=== PATIENT | male | born 1940 | race Caucasian/White ===

== ENCOUNTER 2016-12-22 23:15 | Inpatient (IN) | payer OTHER ==
--- NOTE | ~2016-12-22 | OP ---
Record Of Operation [facility] [address] [place]. [address] NAME: GIULIANA CASTRO : 41 STATUS : ADM IN [facility]#: [id number] AGE: 76 ADM/REG DATE : 12/22/16 MR#: [id number] REPORT SERV DATE: 01/04/17 DICTATED BY: ZANDER HELLERCRESENCIO PICKENS DATE: 01/04/17 REPORT STATUS : Draft TRANSCRIBED BY: MODMaria De Jesus DATE: 01/04/17 DATE OF PROCEDURE: 01/04/2017 PREOPERATIVE DIAGNOSIS: Severe necrotic pyelonephritis on the left with a large left-sided pleural effusion. POSTOPERATIVE DIAGNOSIS: Severe necrotic pyelonephritis on the left with a large left-sided pleural effusion. PROCEDURE: Diagnostic and therapeutic left-sided thoracentesis. INDICATIONS: History of necrotic pyelonephritis on the left with a large left-sided pleural effusion with persistent fevers. CONTRAINDICATIONS: The patient is on ventilator, is a relative contraindication. CONSENT: The risks, benefits, alternative evaluations, and treatments were discussed with the patient's who is acting as a surrogate decision maker. Possible complications reviewed to include air leak around the lung, bleeding, infection, low oxygen level, and even potentially . The agreed to procedure with consent signed and witnessed on front of the chart. PREOPERATIVE LABS: The patient's INR was 1.2. Platelet count was 133,000. CUSTOMER SUPPORT PROFESSIONAL: Cresencio Herring M.D. METHOD: The patient was brought to the edge of the bed and placed in the semisitting position. He was rolled slightly right anterior oblique with the left axillary space exposed. Using the SonoSite Unit, a large fluid collection was noted in approximately the ninth intercostal space in the posterior axillary line. A good intercostal space was found. The area was prepped with chlorhexidine and sterilely draped. Anesthesia was provided to the skin and deeper tissues with approximately 3 mL of 1% lidocaine solution without epinephrine. As the anesthesia needle was advanced to the deeper tissues, it was kept perpendicular to the patient's chest wall. It was advanced to the rib, then over the rib into the pleural space. Slightly sanguineous fluid was obtained. A small skin incision was made and the thoracentesis catheter was advanced in similar manner to the rib, then over the rib into the pleural space. Slightly serosanguineous fluid was obtained. A total of 1600 mL of fluid was removed. Fluid was stopped when the patient developed increasing coughing, and there was more resistance to removal of the fluid. The fluid was sent for studies. Estimated blood loss was less than 1 mL. There was minimal residual fluid at the conclusion of the procedure with re-evaluation with the SonoSite unit. Chest x-ray will be obtained. KENROY/JACQUE Record Of [address] [address] NAME: GIULIANA CASTRO : 41 STATUS : ADM IN [facility]#: [id number] AGE: 76 ADM/REG DATE : 12/22/16 MR#: [id number] REPORT SERV DATE: 01/04/17 DICTATED BY: CRESENCIO HERRING IV DATE: 01/04/17 REPORT STATUS : Draft TRANSCRIBED BY: JACQUE DATE: 01/04/17 Cresencio Herring IV, M.D. / [id number] CC: MD Heike Garrido M.D.
--- NOTE | ~2016-12-22 | CN ---
Consultation Report [facility] [address] [place]. [address] NAME: GIULIANA CASTRO : 42 STATUS : ADM IN [facility]#: [id number] AGE: 76 ADM/REG DATE : 12/22/16 MR#: [id number] REPORT SERV DATE: 12/25/16 DICTATED BY: SHANITA PERDOMO DATE: 12/24/16 REPORT STATUS : Draft TRANSCRIBED BY: MODL DATE: 12/24/16 CONSULTATION DATE OF CONSULTATION: 12/23/2016 TREATING PHYSICIAN: Shanita Perdomo MD REASON FOR CONSULTATION: 1. Bilateral renal stones. 2. Acute kidney injury. 3. Urinary tract infection. 4. History of bladder cancer and urinary diversion. HISTORY OF PRESENT ILLNESS: Mr. Castro is a 76-year-old male with an extensive past urologic history. He has a history of bladder cancer status post radical cystoprostatectomy and neobladder formation at [facility]. His neobladder did not go that well. He had his neobladder converted into an ileal conduit some years later. In the interim, he has developed chronic kidney disease with a baseline creatinine of 3.5. He has a known poorly functioning left kidney and known stones in both sides. He was admitted to [facility] several days ago with a chief complaint of nausea, vomiting, chills, fevers, and feeling bad. He was evaluated and found to have concern for an infection with infected stones. Additionally, he was found to have a very large left-sided perinephric hematoma, which occurred in the setting of a supratherapeutic INR of 6. He is anticoagulated for his cardiac disease. Given the complexity of this patient, he was transferred downtown for further management. Given his perinephric hematoma, his obstructing and nonobstructing stones, and infection, I have been asked to consult to help manage with this patient. PAST MEDICAL HISTORY: 1. Atrial fibrillation, chronic systolic heart failure, ischemic cardiomyopathy, coronary artery disease, COPD, bladder cancer status post cystoprostatectomy with neobladder converted to ileal conduit, hyperthyroidism, depression, chronic kidney disease. SURGICAL HISTORY: 1. Radical cystoprostatectomy. 2. Neobladder. 3. Neobladder conversion to ileal conduit. FAMILY HISTORY: Noncontributory. SOCIAL HISTORY: He smokes. He does not drink or use illegal drugs. He is . ALLERGIES: NO KNOWN DRUG ALLERGIES. MEDICATIONS: Reviewed on the chart. Consultation Report [facility] [address] [facility] [place]. [address] NAME: GIULIANA CASTRO : 41 STATUS : ADM IN [facility]#: [id number] AGE: 76 ADM/REG DATE : 12/22/16 MR#: [id number] REPORT SERV DATE: 12/25/16 DICTATED BY: SHANITA PERDOMO DATE: 12/24/16 REPORT STATUS : Draft TRANSCRIBED BY: MODL DATE: 12/24/16 REVIEW OF SYSTEMS: A 12-point review of systems was performed. Pertinent positives are listed in the HPI. PHYSICAL EXAMINATION: VITAL SIGNS: He is afebrile. He is tachycardic. He is in AFib with RVR. He is on a Cardizem drip. Blood pressure is stable. He has normal saturations on 2 L nasal cannula. He is in no acute distress. He appears stated age. HEAD: Normocephalic and atraumatic. LUNGS: Breathing is nonlabored. He is not in respiratory distress. Pulse is atrial fibrillation. ABDOMEN: Markedly distended. There are no bowel sounds. He has no CVA tenderness. : He has normal external genitalia. EXTREMITIES: No cyanosis or edema. NEURO: He is alert and oriented x3. LABORATORY DATA: His white count is 15.2, hemoglobin 12.4, creatinine 3.7, procalcitonin is 50. IMAGIN[address] CT scan of the abdomen and pelvis performed at [place] 2 days ago was personally reviewed, interpreted by myself. He has bilateral staghorn stones. He has a 1.2 cm stone in the distal left ureter as it crosses under the colonic mesentery. He has bilateral hydronephrosis. He has questionable node in the pelvis. 2. KUB performed at [facility], personally reviewed and interpreted by myself. He has distended loops of small bowel consistent with ileus versus partial small bowel obstruction. 3. Repeat CT scan of the abdomen and pelvis performed at [facility] today. He has a large perinephric left hematoma. He has bilateral staghorn stones. He has a 1.2 cm stone in distal left ureter. 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 ASSESSMENT AND PLAN: Mr. Castro is a chronically ill and now critically ill patient with what appears to be emphysematous pyelonephritis likely in the setting of a chronically obstructed infected kidney. I suspect that the perinephric hematoma, which occurred in setting of obstruction and supratherapeutic INR has provided fuel for the bacteria to rapidly multiply. At this time, recommend broadening his antibiotic coverage with vancomycin and Zosyn. I will plan taking him to the operating room urgently for a left retroperitoneal exploration and nephrectomy, and ureteral stone extraction. I discussed in depth with the patient and the family that this is a very morbid operation and the on-table mortality is 50%, We suspect he will need dialysis afterwards. I appreciate the Cardiology input into this consultation. I will plan on getting Nephrology involved postoperatively as needed. Consultation Report [facility] [id number] [facility] [place]. [address] NAME: GIULIANA CASTRO : 42 STATUS : ADM IN [facility]#: [id number] AGE: 76 ADM/REG DATE : 12/22/16 MR#: [id number] REPORT SERV DATE: 12/25/16 DICTATED BY: SHANITA PERDOMO DATE: 12/24/16 REPORT STATUS : Draft TRANSCRIBED BY: JACQUE DATE: 12/24/16 FLAQUITO/JACQUE Shanita Perdomo MD / [id number] CC: MD Heike Garrido M.D.
--- NOTE | ~2016-12-22 | OP ---
Record Of Operation [facility] [address]. [address] NAME: GIULIANA CASTRO : 42 STATUS : ADM IN PAT#: [id number] AGE: 76 ADM/REG DATE : 12/22/16 MR#: [id number] REPORT SERV DATE: 12/25/16 DICTATED BY: SHANITA PERDOMO DATE: 12/24/16 REPORT STATUS : Draft TRANSCRIBED BY: MODL DATE: 12/24/16 DATE OF PROCEDURE: 12/23/2016 TITLE OF OPERATION: 1. Open exploration of retroperitoneum with evacuation and washout of perinephric hematoma. 2. Left open simple nephrectomy. 3. Open left ureteral exploration with stone extraction. PREOPERATIVE DIAGNOSES: 1. Emphysematous pyelonephritis. 2. Renal stones. 3. Ureteral stones. 4. Chronic kidney disease. 5. Concern for sepsis of urinary origin. 6. Perinephric hematoma. POSTOPERATIVE DIAGNOSES: 1. Emphysematous pyelonephritis. 2. Renal stones. 3. Ureteral stones. 4. Chronic kidney disease. 5. Concern for sepsis of urinary origin. 6. Perinephric hematoma. INDICATIONS: Mr. Castro is a 76-year-old male with a perinephric hematoma and an obstructed poorly functioning left kidney. He has chronic kidney disease. He developed emphysematous pyelonephritis of his kidney. He is critically ill. He is being taken to the operating room urgently for nephrectomy. He and his family understand the severity of the situation and his high on-table mortality. The risks and benefits were extensively explained to the patient and his family. ANESTHESIA: General. COMPLICATIONS: None. IMPLANTS: Large flat HO drain. SPECIMENS: Left kidney for pathologic analysis, perinephric infection for culture and sensitivity. NARRATIVE: The patient was brought to the operating room in an urgent fashion. The patient received central venous access and arterial lines by the Anesthesia team. General anesthesia was induced. He was given vancomycin and Zosyn for antibiotics. He was placed in the left flank position, the bed was flexed, he was secured to the bed with pads and tape. He was prepped and draped in sterile fashion. An incision was made between his 12th Record Of Operation [facility] [address] [facility] [place]. [address] NAME: GIULIANA CASTRO : 42 STATUS : ADM IN PAT#: [id number] AGE: 76 ADM/REG DATE : 12/22/16 MR#: [id number] REPORT SERV DATE: 12/25/16 DICTATED BY: SHANITA PERDOMO DATE: 12/24/16 REPORT STATUS : Draft TRANSCRIBED BY: MODMaria De Jesus DATE: 12/24/16 and 11th rib and curved toward the umbilicus. The incision was deepened through the external internal oblique muscle and fascia and the rectus fascia. Peritoneum was entered. The colon was dropped along the white line of Toldt exposing the retroperitoneum. The kidney was massively enlarged and edematous and very firm to palpation and in appearance. The mesentery was carefully peeled off the kidney. At one point, a mesenteric vein was avulsed, there was some bleeding. It was controlled with clips. Eventually, the bowel was retracted off the retroperitoneum to expose the aorta. Next, the splenorenal ligaments were divided off the kidney with the LigaSure device. This was carried cranially. The tail of the pancreas was divided off the kidney sharply with care taken not to injure the pancreas. Eventually, I got underneath the upper pole of the kidney exposing the psoas muscle. Next, I did my dissection laterally and freed the kidney off the lateral sidewall. This immediately evacuated a large burden of infected hematoma. The smell was quite strong consistent with a very bad infection. The infection was evacuated with a suction device and towels. Next, I got under the kidney posteriorly exposing the psoas muscle which was black with infection. Once the bowel had been reflected medially on the anterior bases, identified the gonadal vein, clipped, and divided it. I got underneath the ureter and lifted the kidney off the psoas muscle. The tissue surrounding the hilum was very edematous, inflamed, infected with adenopathy. I identified the artery superior to the vein and stapled it with a 45 mm reticulating automatic stapler. The vein was then likewise stapled. There were several attachments that were clipped and divided. The ureter and gonadal were then stapled and divided. The kidney was then free of all attachments and it was delivered from the wound and sent to pathology. Cultures from the perinephric hematoma were sent for culture and sensitivity. At this point, the wound was inspected and irrigated. There was some bleeding overlying the aorta. This was oversewn with a 4-0 Prolene suture. The bleeding was successfully stopped. There was no ongoing bleeding and the wound was packed. Next, the ureter was identified and it was incised along its medial length to the point where it dove under the colonic mesentery. Very large stones were encountered in the ureter, these were removed, and sent to pathology for analysis. The ureter was then sutured shut with a 3-0 running Vicryl suture. At this point, the wound was copiously irrigated with several liters of sterile saline. There was no ongoing bleeding. A large flat HO drain was placed into the renal fossa. were approximated using a 0 Vicryl suture in a [id number] fashion. The internal oblique fascia was closed with a #1 looped PDS in a running fashion. The external oblique and rectus fascia were then closed with a running #1 PDS looped. The wound was irrigated clear. The skin was approximated with skin teena. A Xeroform gauze and tape dressing were placed. The drain was sutured in place with a 0 silk suture. There were no complications. Estimated blood loss was 500 mL. The patient was transferred in critical condition intubated back to the ICU. FLAQUITO/JACQUE Shanita Perdomo MD / [id number] Record Of Operation [address] [address] NAME: GIULIANA CASTRO : 42 STATUS : ADM IN [facility]#: [id number] AGE: 76 ADM/REG DATE : 12/22/16 MR#: [id number] REPORT SERV DATE: 12/25/16 DICTATED BY: SHANITA PERDOMO DATE: 12/24/16 REPORT STATUS : Draft TRANSCRIBED BY: JACQUE DATE: 12/24/16 CC: MD Heike Coley M.D.
--- NOTE | ~2016-12-22 | IDS ---
Interim Discharge Summary [facility] [address] [place]. [address] NAME: GIULIANA CASTRO : 42 STATUS : ADM IN [facility]#: [id number] AGE: 76 ADM/REG DATE : 12/22/16 MR#: [id number] REPORT SERV DATE: 12/26/16 DICTATED BY: NAYELI RICHMOND DATE: 12/26/16 REPORT STATUS : Draft TRANSCRIBED BY: MODL DATE: 12/26/16 ADMISSION DATE: 12/22/2016 DISCHARGE DATE: HISTORY OF PRESENT ILLNESS: This is a 76-year-old patient who was transferred here at the request of Urology at [facility] for further observation and care for subcapsular hematoma of the left kidney. The patient was admitted to the Hospitalist Service on the 12/20/2016 with chronic kidney injury, atrial fibrillation with RVR, and UTI. He is on chronic Coumadin as an outpatient, and apparently, his INR had increased to 6, it was then corrected. However, further evaluation of the abdomen showed a subcapsular hematoma of the left kidney. The patient continued to have difficulties with CAYLA and was thought probably need dialysis and was transferred to this facility on 12/22/2016. On 12/23/2016, the patient was evaluated and was found to have a very distended abdomen and was complaining of increasing abdominal pain. Dr. Perdomo of Urology here was contacted, and the patient was taken to the CT scanner to see if there was any extension of his subcapsular hematoma or possibly even a perforation. The CT scan of the abdomen showed a rather large amount of air around the left kidney that was concerning for gas-forming organisms since the patient has had no previous intervention that could account for this air being there. Dr. Perdomo then was contacted, and the patient went emergently to the operating room on the evening of 12/23/2016 and underwent a left nephrectomy with placement of drainage tubes. He came back intubated, and was in septic shock requiring multiple pressors. The patient has been cultured since and is growing E coli from his surgical culture, also abundant growth of gram positive cocci were also noted on the surgical culture. The urine culture grew out Klebsiella and Morganella morganii, and there was one blood culture positive for strep viridans. The patient is having issues with severe thrombocytopenia. He does not appear to be in DIC as per DIC panel, and there were no schistocytes seen or platelet clumping seen on peripheral smear. It is thought that perhaps the Zosyn is contributing to the thrombocytopenia, and so given the antibiotic sensitivity profile, we will be discontinuing the Zosyn and continuing Levaquin at 750 mg IV q.48 and continuing the vancomycin as well until the identification and sensitivity of the gram-positive cocci are available on the surgical culture. With regard to his sepsis, the patient has some improvement and is just on Levophed now, however, earlier he had been on epinephrine and vasopressin. Levophed is slowly being weaned. The patient had a Vas-Cath placed in the left internal jugular and is undergoing FINISHED STOCK INSPECTOR and may very well become dialysis dependent since he already has had a history of bladder cancer and has a urostomy that was placed while back at [facility]. He also has hydronephrosis of the right kidney and may very well need a percutaneous drain on that side once his sepsis and hemodynamics improved. So a PermCath may be necessary. The patient came over in atrial fibrillation with RVR. He is currently on an amiodarone drip. He has a known history of ischemic cardiomyopathy with an ejection fraction of 36%. [facility] Cardiology is following him, and he continues on the amiodarone drip. There is some concern about his atrial fibrillation and propensity for possible CVA given that he is not on anticoagulation, we may be able to start subcu heparin at least for DVT prophylaxis, but at this point use of heparin is somewhat concerning since he has a very low platelet count, Interim Discharge Summary [address] [place]. [address] NAME: GIULIANA CASTRO : 42 STATUS : ADM IN [facility]#: [id number] AGE: 76 ADM/REG DATE : 12/22/16 MR#: [id number] REPORT SERV DATE: 12/26/16 DICTATED BY: NAYELI RICHMOND DATE: 12/26/16 REPORT STATUS : Draft TRANSCRIBED BY: JACQUE DATE: 12/26/16 but we will follow the platelet count over the next day or so and he continues to be stable, we can either start a heparin drip or possibly subcu heparin. Nephrology did not wish to start 81 mg of aspirin at this time, but this may be reconsidered once the PermCath is placed. The patient has a history of hyperthyroidism and his methimazole at 5 mg will be continued. Hematuria is resolving. COPD, he is on bronchodilators. We will start a Protonix 40 mg IV q.24 for GI prophylaxis. The patient's code status remains a full code. /MODL Nayeli Richmond M.D. / [id number] CC: MD Heike Garrido M.D.
--- NOTE | ~2016-12-22 | OP ---
Record Of Operation [facility] [address] [place] [address] NAME: GIULIANA CASTRO : 42 STATUS : ADM IN [facility]#: [id number] AGE: 76 ADM/REG DATE : 12/22/16 MR#: [id number] REPORT SERV DATE: 12/26/16 DICTATED BY: AAKASH CRAWFORD DATE: 12/26/16 REPORT STATUS : Draft TRANSCRIBED BY: MODL DATE: 12/26/16 DATE OF PROCEDURE: 12/24/2016 PREOPERATIVE DIAGNOSIS: Acute kidney injury. POSTOPERATIVE DIAGNOSIS: Acute kidney injury. PROCEDURE: Left IJ Vas-Cath. SURGEON: Aakash Crawford M.D. ARCHEOLOGY FACULTY MEMBER: None. ANESTHESIA: IV sedation. INDICATION: The patient is a 76-year-old gentleman, who has acute kidney injury following urologic surgery. He needs a dialysis catheter for dialysis. Risks, benefits, and alternatives were discussed with the family. They wished to proceed. DESCRIPTION OF PROCEDURE: After informed consent was obtained, the patient's left neck and chest were prepped and draped in usual sterile fashion. Ultrasound-guided access was obtained of the left internal jugular vein. The ultrasound image was documented on the chart. I passed a wire centrally. I made a small skin incision and placed a 20-cm Vas-Cath into the left neck. I used x-ray to confirm that the catheter was positioned appropriately with the tip in the right atrium. The catheter was sutured in place. It was packed with saline. A sterile dressing was applied. The patient tolerated the procedure well without any intraprocedural complications noted. RETRIEVAL SPECIALIST/JACQUE Aakash Crawford M.D. / [id number] CC: MD Heike Garrido M.D. Joseph Watlington, M.D.
--- NOTE | ~2016-12-22 | DS ---
Discharge Summary [facility] [address] [place]. [address] NAME: GIULIANA CASTRO : 42 STATUS : ADM IN PAT#: [id number] AGE: 76 ADM/REG DATE : 12/22/16 MR#: [id number] REPORT SERV DATE: 01/10/17 DICTATED BY: NAYELI RICHMOND DATE: 01/10/17 REPORT STATUS : Draft TRANSCRIBED BY: MODMaria De Jesus DATE: 01/10/17 ADMISSION DATE: 12/22/2016 DISCHARGE DATE: Since the patient's admission, there have been two interim summaries done, one on 12/26/2016 by myself and one on 01/02/[address] Ed Oden. So, for details of this patient's hospital course, please see those. So, this summary will cover events from the 01/03/2017 to 01/10/2017. DIAGNOSES: 1. 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 2. Septic shock secondary to Escherichia coli. 3. Acute renal failure. 4. Acute respiratory failure. 5. Thrombocytopenia. 6. Severe ileus. 7. Atrial fibrillation. Continuing on 01/03/2017, the patient was followed by Dr. Wiggins throughout the week. As per Dr. Ed Oden's dictation, the patient was made a DNR on 12/23/2016. The patient was eventually extubated and actually has tolerated being off the ventilator. In reviewing the chart, the patient was taken off CREDIT UNION FIELD EXAMINER on 01/06/2017 with some plan to possibly try conventional hemodialysis on the patient. Throughout the week, there were fluctuations in the patient's blood pressure necessitating restarting pressors. Dobbhoff tube was placed on 01/08/2017. There were some reservations as to whether or not the patient would even be able to tolerate being on hemodialysis. Hemodialysis was tried; however, the patient was not able to tolerate it and then discussion was had as to whether or not to restart CREDIT UNION FIELD EXAMINER. After further discussion with the family, they elected to make the patient comfort measures. The patient himself did not want to go back on to CREDIT UNION FIELD EXAMINER. So, comfort measures were instituted on the evening on 01/10/2017 with discontinuation of all and any pressors, lab work, chest x rays, and the plan is to keep the patient comfortable and avoid any further aggressive treatment. /JACQUE Nayeli Richmond M.D. / [id number] CC: MD Heike Garrido M.D.
--- NOTE | ~2016-12-22 | CN ---
Consultation Report [facility] [address] [place]. [address] NAME: GIULIANA CASTRO : 41 STATUS : ADM IN PAT#: [id number] AGE: 76 ADM/REG DATE : 12/22/16 MR#: [id number] REPORT SERV DATE: 12/29/16 DICTATED BY: WELLINGTON CAMPO DATE: 12/29/16 REPORT STATUS : Draft TRANSCRIBED BY: MODL DATE: 12/29/16 INFECTIOUS DISEASE CONSULT DATE OF CONSULTATION: REASON FOR REFERRAL: Evaluation and treatment of persistent fever. HISTORY OF PRESENT ILLNESS: This patient is a 76-year-old male with history of atrial fibrillation, congestive heart failure, and chronic obstructive pulmonary disease. He was still smoking. He has history of hyperthyroidism and chronic renal insufficiency. He has a past history of bladder cancer and underwent at [place] some years ago, a neobladder and urostomy tube that did not go well per the Urology notes here and was later changed to an ileal conduit. 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 He came into [facility] on December 22 with 24 hours of nausea, vomiting, fevers, chills, and malaise. He had pyuria, grew two gram-negative rods from his urine. Subsequent imaging revealed staghorn calculi, as well as an obstructing stone on the left side. He was started on Rocephin to which the Klebsiella and Morganella in his urine were both sensitive. He also grew a Strep viridans in one of two blood cultures. He continued to be very ill and sick, was transferred here on the , and repeat imaging showed emphysematous pyelonephritis, as well as a persistent perinephric hematoma probably related to an elevated INR prior to coming in. He was taken to Surgery by Urology here, Dr. Perdomo on the for left nephrectomy and evacuation of that hematoma. The culture from that procedure grew three different organisms, Enterococcus faecalis that was very sensitive, E. coli and Proteus vulgaris, both of which were sensitive to Rocephin. In the meantime, he had a striking thrombocytopenia that was thought vancomycin and Zosyn, to which he had been started on the that the Zosyn might be contributing to that, so Zosyn was changed to Levaquin and since then, in fact his thrombocytopenia has improved. He developed acute on chronic renal failure and after arrival here, a hemodialysis catheter was placed and he was begun on CRRT. On Thursday, the , there was difficulty with the access and that was discontinued. He then yesterday started spiking a fever to 101.7. White blood cell count has remained high. cultures repeated yesterday of blood and tracheal aspirate and thus far those have not grown anything. Chest x-ray has not been repeated since the . He is sedated on the ventilator now. The wounds did not appear to be infected. His abdominal exam has been benign. He has developed no rashes. PAST MEDICAL HISTORY: Otherwise unremarkable. MEDICATIONS: As described above. ALLERGIES: HE HAS NO KNOWN ANTIMICROBIAL ALLERGIES. SOCIAL HISTORY: He is , disabled, smoked as previously mentioned. No history of alcohol or substance abuse. Consultation Report [address] [place]. [address] NAME: GIULIANA CASTRO : 42 STATUS : ADM IN [facility]#: [id number] AGE: 76 ADM/REG DATE : 12/22/16 MR#: [id number] REPORT SERV DATE: 12/29/16 DICTATED BY: WELLINGTON CAMPO DATE: 12/29/16 REPORT STATUS : Draft TRANSCRIBED BY: JACQUE DATE: 12/29/16 FAMILY HISTORY: Noncontributory. PHYSICAL EXAMINATION: GENERAL: Ill-appearing elderly male. He is sedated, orotracheally intubated, and unresponsive at present due to the sedation. VITAL SIGNS: His temperature at present 97.9 with a pulse of 112, respirations 24, blood pressure 125/74 on pressors. Weight 88 kg. HEENT: Sclerae clear. Unable to evaluate his mouth. NECK: Without lymphadenopathy. LUNGS: There are crackles heard bilaterally in the bases. HEART: Irregular. ABDOMEN: Soft, positive bowel sounds are heard. No masses palpated. EXTREMITIES: Without clubbing, cyanosis. Cool extremities. No rashes noted. IV site shows no signs of purulence. LABORATORY DATA: His white blood cell count when he came in was 21.7. On antibiotics, that did improve down to 9.8; on the , was back up to 15.4 on the and 9.9 on the . On the , it was 14.7; on the , 18.1; on the 21.8, and today, 21.5 with hematocrit of 28.3, platelets which had gone all the way down to as low as 20s, is back up to 81. Today's differential, 93 segs, 1% bands. BUN and creatinine are 21 and 2.53. His procalcitonin when he came in was 50.8, 54.32 when checked yesterday. Liver function tests previously checked, within normal limits. IMPRESSION: 1. 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 Causes to consider for the persistent fever would include that at least there is still infection at the kidney site, although that was just washed out. A drain was in place so that should be less likely and then isolated organisms were all covered by his antibiotics. 2. Possible pneumonia. He is certainly at risk for it, not had a chest x-ray in several days and finally, a line infection, although it seems rather fast for that. RECOMMENDATIONS: 1. Continue vancomycin. 2. Change Levaquin to meropenem. 3. Blood cultures already done. We will follow up on those. 4. Cultures, line tip. 5. He checked a chest x-ray and follow up on his tracheal aspirate culture. Finally, I will follow the patient with you. I appreciate very much your consulting on this patient. Consultation Report [address] [place]. [address] NAME: GIULIANA CASTRO : 42 STATUS : ADM IN [facility]#: [id number] AGE: 76 ADM/REG DATE : 12/22/16 MR#: [id number] REPORT SERV DATE: 12/29/16 DICTATED BY: WELLINGTON CAMPO DATE: 12/29/16 REPORT STATUS : Draft TRANSCRIBED BY: JACQUE DATE: 12/29/16 SIMONA Wellington Campo M.D. / [id number] CC: MD Heike Garrido M.D.
--- NOTE | ~2016-12-22 | CN ---
Consultation Report [facility] [address] [place]. [address] NAME: GIULIANA CASTRO : 41 STATUS : ADM IN PAT#: [id number] AGE: 76 ADM/REG DATE : 12/22/16 MR#: [id number] REPORT SERV DATE: 12/23/16 DICTATED BY: MOSES HONG DATE: 12/23/16 REPORT STATUS : Draft TRANSCRIBED BY: MODL DATE: 12/23/16 CARDIOLOGY CONSULTATION NOTE DATE OF CONSULTATION: 12/23/2016 REASON FOR CONSULTATION: Atrial fibrillation and rapid ventricular response in a patient with history of ischemic cardiomyopathy and chronic atrial fibrillation. HISTORY OF PRESENT ILLNESS: Mr. Castro is a 76-year-old man who was admitted to [facility] on 12/20/2016. The patient apparently was admitted with a chief complaint of nausea, vomiting, chills, subjective fevers, and "feeling bad." The patient was found to have a urinary tract infection. He was also found to have a spontaneous subcapsular hematoma involving the left kidney with compression of the left kidney. The patient had a supratherapeutic INR of approximately 6.0. His Coumadin anticoagulation has been reversed. The patient was transferred to [facility] in case treatment by Urology or Interventional Radiology is necessary. At this time, the patient's primary complaint is abdominal distention and nausea. He denies chest pain, though he is having some significant shortness of breath. The patient does have a history of chronic systolic heart failure and chronic obstructive pulmonary disease. He continues to smoke approximately one to two packs of cigarettes a day. He is followed by Dr. Jean in the outpatient setting. PAST MEDICAL HISTORY: 1. Chronic atrial fibrillation. 2. Chronic systolic heart failure. 3. Ischemic cardiomyopathy. 4. Coronary artery disease with chronic total occlusion of the patient's circumflex, coronary artery, and evidence of previous infarction. 5. Chronic obstructive pulmonary disease. 6. History of bladder cancer, status post surgery with urostomy. 7. Hyperthyroidism. 8. Depression. 9. Chronic kidney disease. PAST SURGICAL HISTORY: Significant for multiple urologic procedures and urostomy otherwise noncontributory. FAMILY HISTORY: Noncontributory. SOCIAL HISTORY: The patient continues to smoke approximately one to two pack of cigarettes a day. He has no known history of alcohol abuse. He is . ALLERGIES: THE PATIENT HAS NO KNOWN MEDICATION ALLERGIES. Consultation Report [place] [id number] [facility] [place]. [address] NAME: GIULIANA CASTRO : 41 STATUS : ADM IN PAT#: [id number] AGE: 76 ADM/REG DATE : 12/22/16 MR#: [id number] REPORT SERV DATE: 12/23/16 DICTATED BY: MOSES HONG DATE: 12/23/16 REPORT STATUS : Draft TRANSCRIBED BY: JACQUE DATE: 12/23/16 HOME MEDICATIONS: 1. Amlodipine 5 mg p.o. q.a.m. 2. Aspirin 81 mg p.o. daily. 3. Benazepril 20 mg p.o. daily. 4. Carvedilol 25 mg p.o. twice daily. 5. Isosorbide mononitrate 15 mg daily. 6. Methimazole 10 mg to 15 mg daily. 7. Pravachol 20 mg p.o. daily. 8. Sodium bicarbonate 2 tablets p.o. twice daily. 9. Coumadin 1 mg and 1.5 mg alternating every other day. REVIEW OF SYSTEMS: A complete 12-system review was performed. This is noncontributory except for the pertinent positives and negatives noted in the history of present illness above. PHYSICAL EXAMINATION: VITAL SIGNS: Temperature is 97.8 degrees Fahrenheit, blood pressure is 150/86 mmHg, heart rate is currently variable between 100 and 120 beats per minute and irregularly irregular, respirations 20, and oxygen saturation is 100% on non-rebreather. CONSTITUTIONAL: A chronically ill-appearing, elderly white man, who is mildly tachypneic. He is receiving a breathing treatment at the time of my examination. He is otherwise in no acute distress. EYES: PERRL, EOMI, clear conjunctiva. HEAD/MNT: NCAT with moist mucous membranes and grossly normal hard and soft palate. NECK: Supple with no obvious thyromegaly or lymphadenopathy CARDIOVASCULAR: There is an irregularly irregular rhythm with a variable S1 and a physiologically split second heart sound. Cardiac examination is somewhat limited by pulmonary noise, but there are no significant murmurs, rubs, or gallops appreciated. The jugular venous pressure at this time appears grossly normal. PULMONARY: There is diffuse inspiratory and expiratory wheezing with scattered rales noted in the left lung base. ABDOMEN: There is at least moderate bordering on severe abdominal distention. There is diffuse mild tenderness to palpation with no rebound or guarding noted. A urostomy bag is in place and is clean, dry, and intact. There is no gross organomegaly noted. EXTREMITIES: The patient has nicotine stains on his fingers, with no obvious clubbing, cyanosis, or edema at this time. MUSCULOSKELETAL: Grossly normal strength and range of motion in all extremities INTEGUMENTARY: Skin appears intact with no bruises, wounds or active lesions noted NEURO/PSYC: Alert and oriented x3, with no dysarthria, facial droop or lateralizing weakness noted. DIAGNOSTIC DATA: 12-lead ECG: The 12-lead ECG from [place] shows atrial fibrillation with a nonspecific intraventricular conduction delay and ST-segment depression noted in the lateral and inferior leads suggestive of ischemia. This is unchanged from the patient's most recent Consultation Report [address] [place]. [address] NAME: GIULIANA CASTRO : 42 STATUS : ADM IN [facility]#: [id number] AGE: 76 ADM/REG DATE : 12/22/16 MR#: [id number] REPORT SERV DATE: 12/23/16 DICTATED BY: MOSES HONG DATE: 12/23/16 REPORT STATUS : Draft TRANSCRIBED BY: JACQUE DATE: 12/23/16 clinic tracing, however. Chest x-ray: The chest x-ray shows a small left pleural effusion with mild pulmonary vascular congestion. There is suggestion of enlargement of the cardiomediastinal silhouette. No other acute process is noted. LABORATORY DATA: The patient's urinalysis is positive with a culture growing greater than 100,000 units of Morganella morganii. BNP from 12/20/2016 is grossly elevated at 2710. Chemistry profile shows a sodium of 138, potassium 4.9, chloride is 106, CO2 of 21, BUN 38, creatinine is 3.54. Troponin I is 0.02. Magnesium is decreased at 1.4. Cell count showed a white blood cell count of 21.7 with a hemoglobin of 13, hematocrit 40, and platelets 252. The patient's INR was reportedly 6.0, though his most recent INR is 1.2. The patient has had a repeat hemoglobin and hematocrit which are 11.0 and 32. ASSESSMENT AND PLAN: 1. Atrial fibrillation with rapid ventricular response: Continue Cardizem drip as needed to maintain the patient's ventricular rate less than 120 beats per minute. The patient's Coumadin will obviously be discontinued at this time given his subcapsular hematoma. 2. Chronic systolic heart failure: The patient does have physical exam, chest x-ray, and laboratory evidence of volume overload. The patient does have acute on chronic kidney failure. The Nephrology Service has been consulted. If Nephrology agrees, consider gentle diuresis with Lasix or Bumex. 3. Abdominal distention: Possible ileus. Consider bowel regimen and Urology consultation for treatment of the patient's subcapsular hematoma. Thank you for allowing me to participate in the care Mr. Castro. The Cardiology Service will continue to follow the patient closely during this admission. SHANNENH/JACQUE Moses Hong MD / [id number] CC: MD Heike Garrido M.D.
--- NOTE | ~2016-12-22 | OP ---
Record Of Operation [facility] [address] [place]. [address] NAME: GIULIANA CASTRO : 42 STATUS : ADM IN [facility]#: [id number] AGE: 76 ADM/REG DATE : 12/22/16 MR#: [id number] REPORT SERV DATE: 12/29/16 DICTATED BY: JON LOMELI JR. DATE: 12/29/16 REPORT STATUS : Draft TRANSCRIBED BY: MODL DATE: 12/29/16 DATE OF PROCEDURE: 12/29/2016 PREOPERATIVE DIAGNOSIS: Malfunctioning left Vas-Cath catheter. POSTOPERATIVE DIAGNOSIS: Malfunctioning left Vas-Cath catheter. OPERATION: Replacement of same. SURGEON: Jon Lomeli M.D. HISTORY: This is a 76-year-old white male, critically ill, residing in MICU. He had a Vas- Cath placed several days ago by a partner of mine. It was to be replaced yesterday because of poor function until he dropped his blood pressure and had to go on more pressors to support his blood pressure. He was felt that he needed CRRT restarted, I was asked to re- place a Vas-Cath catheter today. PROCEDURE IN DETAIL: The patient's left neck area was prepped and draped in a sterile manner as possible. The blue end of the line was opened. A wire was placed down to the right side of the heart. The old line was removed over a wire. A new Vas-Cath catheter was threaded in over the wire. It seemed to go into good position. It aspirated extremely well. The lines were irrigated with heparinized saline and the catheter was sutured into place. The patient tolerated the procedure well and was left in MICU in critical condition. There were no intraoperative complications. Estimated blood loss was 0. DF/MODL Jon Lomeli Jr., M.D. / [id number] CC: MD Heike Garrido M.D.
--- NOTE | ~2016-12-22 | IDS ---
Interim Discharge Summary [facility] [address] [place]. [address] NAME: GIULIANA CASTRO : 42 STATUS : ADM IN [facility]#: [id number] AGE: 76 ADM/REG DATE : 12/22/16 MR#: [id number] REPORT SERV DATE: 01/02/17 DICTATED BY: SHAGGY ODEN DATE: 01/02/17 REPORT STATUS : Draft TRANSCRIBED BY: MODL DATE: 01/02/17 ADMISSION DATE: 12/20/2016 DISCHARGE DATE: DATE OF HOSPITAL ADMISSION: 12/20/2016 to [facility]. DATE OF TRANSFER: To [facility] 12/22/2016. DATE OF LAST INTERIM DISCHARGE SUMMARY: 12/26/2016. DATE OF THIS INTERIM DISCHARGE SUMMARY: 01/02/2017. INTERIM DIAGNOSES: 1. Necrotizing pyelonephritis, status post left-sided nephrectomy with drain placement. 2. Septic shock. 3. Acute renal failure. 4. Acute respiratory failure. 5. Thrombocytopenia. 6. Severe ileus. 7. Atrial fibrillation with rapid ventricular response. ICU COURSE: Please see dictated H and P as well as multiple interim discharge summaries and consult notes for full patient presentation, history and ICU course up until this point. BRIEF SUMMARY: The patient is a 76-year-old gentleman who was initially admitted for left renal subcapsular hematoma and eventually developed necrotizing pyelonephritis that required left-sided nephrectomy with drain placement on 12/25. Since that time, his ICU course was then complicated by septic shock, acute renal failure, acute respiratory failure, thrombocytopenia, atrial fibrillation with rapid ventricular response and a severe ileus. Last interim summary was by Dr. Richmond on 12/26. Since I took over the care of the patient, he has continued to remain on the ventilator, dependent on CRRT as well as on 1-point multiple vasopressors though now just on Levophed. Of note, I had a discussion at the beginning of the week with the patient's who understands that he will likely not survive this hospitalization and at that time decided to make him a do not resuscitate. She would however like to continue with current aggressive therapy for now at this time. Necrotizing pyelonephritis with septic shock. The patient is status post left-sided nephrectomy with drain placement. He remains on multiple antibiotics, being managed by Infectious Disease for his polymicrobial infection. He has had worsening bandemia over the last several days and had a transient increase in the pressor requirement several days ago. So Infectious Disease had added antifungal and changed his antibiotics. We are getting a repeat CT scan today to look for intraabdominal abscess that we may need to intervene on has been done and the read is pending at the time of this dictation. Acute renal failure. The patient remains on CRRT per renal management. Interim Discharge Summary [address] [place] [place]. [address] NAME: GIULIANA CASTRO : 42 STATUS : ADM IN PAT#: [id number] AGE: 76 ADM/REG DATE : 12/22/16 MR#: [id number] REPORT SERV DATE: 01/02/17 DICTATED BY: SHAGGY ODEN DATE: 01/02/17 REPORT STATUS : Draft TRANSCRIBED BY: JACQUE DATE: 01/02/17 Acute respiratory failure. The patient remains ventilator dependent. We have not been very aggressive with weaning trials given that he still remains in shock and dependent on CRRT. He does wake up and follow commands though currently he is not requiring any medications for delirium but we will continue to monitor this closely with daily awakening trials. Thrombocytopenia likely secondary to sepsis. These have continued to increase throughout the week and are now relatively normal. He has had no evidence of bleeding. Atrial fibrillation with rapid ventricular response. Cardiology has been following. Intermittently he has needed IV amiodarone but currently he is now off IV amiodarone and rate control. Severe ileus. About mid week this week the patient developed a very severe ileus and was not absorbing anything and having large residual NG-tube output. We made the decision to start the patient on TPN and currently holding all of n.p.o. Medication. Pharmacy is managing his TPN. The patient will be taken over by the oncoming metal fabrication supervisor. Please call if you have any questions. JOSH/JACQUE Shaggy Oden MD / [id number] CC: MD Heike Garrido M.D.
[~2016-12-22 23:15] MED LIST: ADVIL 100100 MG/5 M PO; AMPI500 PO; ASAB PO; C1 PO; C2 PO; CARDCD240 PO; CAT1 PO; COREG25 PO; IMDUR30 PO; JANTOVEN1 MG PO; LONITEN10 PO; LOTE20 PO; LOTE40 PO; MYLUD PO; NORV10 PO; P20 PO; PRAVAC PO; PRILO PO; SODBICAR10 PO; SODIUM BICARBONATE PO; T PO; TAPAZOLE10 MG OR; TAPAZOLE10 MG PO; TUMSROLL PO; VITAMIN D31000 UNIT PO; VITD PO; ZOL50 PO; [UNRECOGNIZED DRUG - OTHER] PO; [UNRECOGNIZED DRUG - REMARK] IV
[2016-12-23 01:36] LABS: HEMATOCRIT 30.2 % (40.0-51.0); HEMOGLOBIN 10.7 g/dL (13.6-17.8)
[2016-12-23 01:42] LABS: INTERNATIONAL NORMAL RATI 1.2 UNITS (-)
[2016-12-23 01:43] LABS: PROTIME (NOT ORD) 15.5 SEC (12.0-14.5)
[2016-12-23 01:50] LABS: ALBUMIN 2.1 G/DL (3.5-5.0); BUN (BLOOD UREA NITROGEN) 59 MG/DL (6-23); CALCIUM, SERUM 7.9 MG/DL (8.5-10.4); CHLORIDE, SERUM 107 MMOL/L (96-112); CO2 (CARBON DIOXIDE) 20 MMOL/L (24-34); CREATININE 3.41 MG/DL (0.70-1.30); GFR AFRICAN AMERICAN 19 ML/MIN (>=60); GFR NON AFRICAN AMERICAN 17 ML/MIN (>=60); GLUCOSE, SERUM 103 MG/DL (60-99); PHOSPHORUS, SERUM 4.3 MG/DL (2.5-4.5); POTASSIUM, SERUM 4.4 MMOL/L (3.5-5.3); SODIUM, SERUM 141 MMOL/L (135-148)
[2016-12-23 02:25] LABS: PROCALCITONIN 50.85 ng/mL (<0.5)
[2016-12-23 07:48] LABS: HEMATOCRIT 31.8 % (40.0-51.0)
[2016-12-23 12:25] LABS: HEMATOCRIT 31.9 % (40.0-51.0); HEMOGLOBIN 10.9 g/dL (13.6-17.8)
[2016-12-23] MEDS ORDERED: JANTOVEN1 MG PO ×2 (12:54)
[2016-12-23] MEDS ORDERED: COREG25 PO (12:55)
[2016-12-23] MEDS ORDERED: LOTE10 PO (12:55)
[2016-12-23] MEDS ORDERED: NORV5 PO (12:55)
[2016-12-23] MEDS ORDERED: PRAVAC PO (12:56)
[2016-12-23] MEDS ORDERED: IMDUR30 PO (12:56)
[2016-12-23] MEDS ORDERED: METHIMAZOLE5 MG PO ×2 (12:57)
[2016-12-23] MEDS ORDERED: SODBICAR10 PO (12:58)
[2016-12-23] MEDS ORDERED: ASAB PO (12:58)
[2016-12-23] MEDS ORDERED: VITAMIN D31000 UNIT PO (12:59)
[2016-12-23] MEDS ORDERED: T PO (13:00)
[2016-12-23] MEDS ORDERED: OCEAN NAS (13:01)
[2016-12-23 16:02] LABS: HEMATOCRIT 34.3 % (40.0-51.0); HEMOGLOBIN 11.6 g/dL (13.6-17.8)
[2016-12-23 18:04] LABS: HEMOGLOBIN 12.4 g/dL (13.6-17.8); MEAN CORPUSCULAR HEMOGLOB 30.7 pg (26.0-34.0); MEAN PLATELET VOLUME 10.7 fL (9.2-13.0); RBC DISTRIBUTION WIDTH 15.3 % (12.0-16.0)
[2016-12-23 18:17] LABS: MANUAL DIFF YES %; MEAN CORPUS HGB CONC 34.4 g/dL (32.0-36.0); MEAN CORPUSCULAR VOLUME 89.1 fL (80-100); PLATELET COUNT 97 10/3/uL (150-400); RED CELL COUNT 4.04 10/6/uL (4.7-6.1); WHITE BLOOD CELLS 15.2 10/3/uL (4.5-10.5)
[2016-12-23 18:25] LABS: ALBUMIN 2.2 G/DL (3.5-5.0); CALCIUM, SERUM 8.2 MG/DL (8.5-10.4); CHLORIDE, SERUM 111 MMOL/L (96-112); CO2 (CARBON DIOXIDE) 21 MMOL/L (24-34); CREATININE 3.73 MG/DL (0.70-1.30); GFR AFRICAN AMERICAN 17 ML/MIN (>=60); GFR NON AFRICAN AMERICAN 15 ML/MIN (>=60); GLUCOSE, SERUM 109 MG/DL (60-99); POTASSIUM, SERUM 4.6 MMOL/L (3.5-5.3); SGOT(AST) 27 U/L (5-40); SGPT(ALT) 26 U/L (5-65); SODIUM, SERUM 144 MMOL/L (135-148); TOTAL PROTEIN 6.3 G/DL (6.0-8.5)
[2016-12-23 18:27] LABS: ALKALINE PHOSPHATASE 62 U/L (45-117); BUN (BLOOD UREA NITROGEN) 72 MG/DL (6-23); DIRECT BILIRUBIN 0.7 MG/DL (0.0-0.4); INDIRECT BILIRUBIN(NOT ORDER) 0.4 MG/DL (0.1-0.9); TOTAL BILIRUBIN 1.1 MG/DL (0-1.2)
[2016-12-23 18:40] LABS: BAND NEUTROPHILS 6 %; LYMPHOCYTES 5 %; LYMPHOCYTES ABSOLUTE (CALC) 0.76 10/3/uL (0.67-4.30); MONOCYTES 3 %; MONOCYTES ABSOLUTE (CALC) 0.46 10/3/uL (0.21-1.20); NEUTROPHILS ABSOLUTE (CALC) 13.98 10/3/uL (2.02-8.40); PLATELET ESTIMATE DEC (ADEQUATE); SEGMENTED NEUTROPHIL (0) 86 %; TOTAL NUCLEATED CELLS 100
[2016-12-23 18:41] LABS: RBC MORPHOLOGY NORM (NORMAL)
[2016-12-23 22:54] LABS: HEMOGLOBIN 9.5 g/dL (13.6-17.8)
[2016-12-23 23:40] LABS: HEMATOCRIT 32.7 % (40.0-51.0); HEMOGLOBIN 11.3 g/dL (13.6-17.8)
[2016-12-24 02:00] LABS: INTERNATIONAL NORMAL RATI 1.4 UNITS (-); PROTIME (NOT ORD) 16.7 SEC (12.0-14.5)
[2016-12-24 02:01] LABS: PARTIAL THROMBO TIME 31.8 SEC (22.5-37.2)
[2016-12-24 02:05] LABS: HEMATOCRIT 30.2 % (40.0-51.0); HEMOGLOBIN 10.4 g/dL (13.6-17.8); MEAN CORPUS HGB CONC 34.4 g/dL (32.0-36.0); MEAN CORPUSCULAR HEMOGLOB 30.8 pg (26.0-34.0); MEAN CORPUSCULAR VOLUME 89.3 fL (80-100); MEAN PLATELET VOLUME 10.8 fL (9.2-13.0); RBC DISTRIBUTION WIDTH 15.6 % (12.0-16.0); RED CELL COUNT 3.38 10/6/uL (4.7-6.1)
[2016-12-24 02:07] LABS: PLATELET COUNT 61 10/3/uL (150-400)
[2016-12-24 02:08] LABS: MANUAL DIFF YES %
[2016-12-24 02:10] LABS: BUN (BLOOD UREA NITROGEN) 75 MG/DL (6-23); CALCIUM, SERUM 7.3 MG/DL (8.5-10.4); CHLORIDE, SERUM 116 MMOL/L (96-112); CO2 (CARBON DIOXIDE) 18 MMOL/L (24-34); CREATININE 3.59 MG/DL (0.70-1.30); GFR AFRICAN AMERICAN 18 ML/MIN (>=60); GFR NON AFRICAN AMERICAN 16 ML/MIN (>=60); POTASSIUM, SERUM 4.9 MMOL/L (3.5-5.3); SODIUM, SERUM 148 MMOL/L (135-148)
[2016-12-24 02:13] LABS: GLUCOSE, SERUM 169 MG/DL (60-99); PHOSPHORUS, SERUM 5.9 MG/DL (2.5-4.5)
[2016-12-24 02:26] LABS: BAND NEUTROPHILS 7 %; IMMATURE GRANS ABSOLUTE (CALC) 0.14 10/3/uL (0.0-0.11); LYMPHOCYTES 1 %; LYMPHOCYTES ABSOLUTE (CALC) 0.14 10/3/uL (0.67-4.30); METAMYELOCYTES 1 %; MONOCYTES 10 %; NEUTROPHILS ABSOLUTE (CALC) 12.32 10/3/uL (2.02-8.40); PLATELET ESTIMATE DEC (ADEQUATE); SEGMENTED NEUTROPHIL (0) 81 %; TOTAL NUCLEATED CELLS 100
[2016-12-24 02:27] LABS: BURR CELLS 1+ (3-10/OIF) (0-2/OIF)
[2016-12-24 04:01] LABS: BE (BASE EXCESS) -13.1 MEQ/L (0 +/- 2.5); CARBOXYHEMOGLOBIN 1.5 % (0-3); HCO3 (ACTUAL BICARBONATE) 16.3 MEQ/L (23-27); HEMOBLOGIN CONTENT 11.1 G/DL (14-18); INSTRUMENT SERIAL # 8083; METHEMOGLOBIN 0.3 % (0-3); MODE CMV; O2 CONTENT 15.2 VOL% (18-24); OPERATOR ID 17370; PCO2 (CO2 TENSION) 53 MMHG (35-45); PO2 (O2 TENSION) 130 MMHG (79-93); SAMPLE Arterial; TIDAL VOLUME 480 ML; pH 7.11 (7.37-7.43)
[2016-12-24 04:43] LABS: BASOPHILS 0.1 %; BASOPHILS ABSOLUTE 0.01 10/3/uL (0.0-0.16); EOSINOPHILS 0 %; HEMATOCRIT 30.8 % (40.0-51.0); HEMOGLOBIN 10.4 g/dL (13.6-17.8); IMMATURE GRANULOCYTES ABSOLUTE 0.12 10/3/uL (0.0-0.11); LYMPHOCYTES 5.9 %; LYMPHOCYTES ABSOLUTE 0.69 10/3/uL (0.67-4.30); MEAN CORPUS HGB CONC 33.8 g/dL (32.0-36.0); MEAN CORPUSCULAR HEMOGLOB 30.3 pg (26.0-34.0); MEAN CORPUSCULAR VOLUME 89.8 fL (80-100); MEAN PLATELET VOLUME 10.9 fL (9.2-13.0); MONOCYTES 5.9 %; MONOCYTES ABSOLUTE 0.69 10/3/uL (0.21-1.20); NEUTROPHILS 87.1 %; NEUTROPHILS ABSOLUTE 10.27 10/3/uL (2.02-8.40); PLATELET COUNT 58 10/3/uL (150-400); RED CELL COUNT 3.43 10/6/uL (4.7-6.1); WHITE BLOOD CELLS 11.8 10/3/uL (4.5-10.5)
[2016-12-24 04:46] LABS: INTERNATIONAL NORMAL RATI 1.3 UNITS (-); PROTIME (NOT ORD) 16.4 SEC (12.0-14.5)
[2016-12-24 04:47] LABS: MANUAL DIFF NO %
[2016-12-24 04:56] LABS: ALBUMIN 2.1 G/DL (3.5-5.0); BUN (BLOOD UREA NITROGEN) 76 MG/DL (6-23); CALCIUM, SERUM 7.4 MG/DL (8.5-10.4); CHLORIDE, SERUM 116 MMOL/L (96-112); CO2 (CARBON DIOXIDE) 19 MMOL/L (24-34); CREATININE 3.73 MG/DL (0.70-1.30); GFR AFRICAN AMERICAN 17 ML/MIN (>=60); GFR NON AFRICAN AMERICAN 15 ML/MIN (>=60); GLUCOSE, SERUM 165 MG/DL (60-99); PHOSPHORUS, SERUM 6.7 MG/DL (2.5-4.5); POTASSIUM, SERUM 5.1 MMOL/L (3.5-5.3); SODIUM, SERUM 146 MMOL/L (135-148)
[2016-12-24 05:17] LABS: A/G RATIO 0.7 (0.7-1.9); ALBUMIN 2.2 G/DL (3.5-5.0); GLOBULIN 3.1 G/DL (2.5-4.1); SGOT(AST) 20 U/L (5-40); SGPT(ALT) 18 U/L (5-65); TOTAL PROTEIN 5.3 G/DL (6.0-8.5)
[2016-12-24 05:18] LABS: ALKALINE PHOSPHATASE 45 U/L (45-117)
[2016-12-24 05:26] LABS: PLATELET ESTIMATE DEC (ADEQUATE)
[2016-12-24 06:13] LABS: PROCALCITONIN 34.21 ng/mL (<0.5)
[2016-12-24 06:42] LABS: BE (BASE EXCESS) -9.5 MEQ/L (0 +/- 2.5); CARBOXYHEMOGLOBIN 0.5 % (0-3); HEMOBLOGIN CONTENT 11.1 G/DL (14-18); INSTRUMENT SERIAL # 8083; METHEMOGLOBIN 0.1 % (0-3); MODE CMV; O2 CONTENT 15.4 VOL% (18-24); OPERATOR ID 35190; PCO2 (CO2 TENSION) 46 MMHG (35-45); PO2 (O2 TENSION) 130 MMHG (79-93); SAMPLE Arterial; TIDAL VOLUME 480 ML; pH 7.21 (7.37-7.43)
[2016-12-24 09:49] LABS: BE (BASE EXCESS) -7.6 MEQ/L (0 +/- 2.5); CARBOXYHEMOGLOBIN 0.8 % (0-3); HCO3 (ACTUAL BICARBONATE) 19.4 MEQ/L (23-27); HEMOBLOGIN CONTENT 10.8 G/DL (14-18); INSTRUMENT SERIAL # 8083; METHEMOGLOBIN 0.2 % (0-3); MODE CMV; OPERATOR ID 14382; PCO2 (CO2 TENSION) 45 MMHG (35-45); PO2 (O2 TENSION) 123 MMHG (79-93); SAMPLE Arterial; TIDAL VOLUME 480 ML; pH 7.25 (7.37-7.43)
[2016-12-24 10:55] LABS: INTERNATIONAL NORMAL RATI 1.4 UNITS (-); PARTIAL THROMBO TIME 31.2 SEC (22.5-37.2); PROTIME (NOT ORD) 17.3 SEC (12.0-14.5)
[2016-12-24 11:02] LABS: D-DIMER QUANTITATIVE 3.57 ug/mLFEU (< 0.50)
[2016-12-24 16:38] LABS: BASOPHILS 0.2 %; BASOPHILS ABSOLUTE 0.02 10/3/uL (0.0-0.16); EOSINOPHILS 0.3 %; EOSINOPHILS ABSOLUTE 0.03 10/3/uL (0.0-0.53); HEMATOCRIT 31.1 % (40.0-51.0); HEMOGLOBIN 10.6 g/dL (13.6-17.8); IMMATURE GRANULOCYTES ABSOLUTE 0.21 10/3/uL (0.0-0.11); LYMPHOCYTES 6.7 %; LYMPHOCYTES ABSOLUTE 0.69 10/3/uL (0.67-4.30); MEAN CORPUS HGB CONC 34.1 g/dL (32.0-36.0); MEAN CORPUSCULAR HEMOGLOB 30.4 pg (26.0-34.0); MEAN CORPUSCULAR VOLUME 89.1 fL (80-100); MEAN PLATELET VOLUME 11.1 fL (9.2-13.0); MONOCYTES 9.2 %; MONOCYTES ABSOLUTE 0.95 10/3/uL (0.21-1.20); NEUTROPHILS 81.6 %; NEUTROPHILS ABSOLUTE 8.46 10/3/uL (2.02-8.40); PLATELET COUNT 50 10/3/uL (150-400); RBC DISTRIBUTION WIDTH 16.5 % (12.0-16.0); RED CELL COUNT 3.49 10/6/uL (4.7-6.1); WHITE BLOOD CELLS 10.4 10/3/uL (4.5-10.5)
[2016-12-24 16:40] LABS: MANUAL DIFF NO %
[2016-12-24 16:44] LABS: CALCIUM, SERUM 7.2 MG/DL (8.5-10.4); CHLORIDE, SERUM 111 MMOL/L (96-112); CO2 (CARBON DIOXIDE) 22 MMOL/L (24-34); GLUCOSE, SERUM 182 MG/DL (60-99); POTASSIUM, SERUM 4.2 MMOL/L (3.5-5.3); SODIUM, SERUM 144 MMOL/L (135-148)
[2016-12-24 16:45] LABS: BUN (BLOOD UREA NITROGEN) 66 MG/DL (6-23); CREATININE 3.21 MG/DL (0.70-1.30); GFR AFRICAN AMERICAN 21 ML/MIN (>=60); GFR NON AFRICAN AMERICAN 18 ML/MIN (>=60); PHOSPHORUS, SERUM 4.4 MG/DL (2.5-4.5)
[2016-12-24 21:47] LABS: BASOPHILS 0.4 %; BASOPHILS ABSOLUTE 0.04 10/3/uL (0.0-0.16); EOSINOPHILS 1.7 %; EOSINOPHILS ABSOLUTE 0.17 10/3/uL (0.0-0.53); HEMATOCRIT 30.6 % (40.0-51.0); HEMOGLOBIN 10.1 g/dL (13.6-17.8); IMMATURE GRANULOCYTES 2.2 %; IMMATURE GRANULOCYTES ABSOLUTE 0.22 10/3/uL (0.0-0.11); LYMPHOCYTES 8.3 %; LYMPHOCYTES ABSOLUTE 0.82 10/3/uL (0.67-4.30); MEAN CORPUSCULAR HEMOGLOB 29.2 pg (26.0-34.0); MEAN CORPUSCULAR VOLUME 88.4 fL (80-100); MEAN PLATELET VOLUME 11.6 fL (9.2-13.0); MONOCYTES 9.4 %; MONOCYTES ABSOLUTE 0.93 10/3/uL (0.21-1.20); RBC DISTRIBUTION WIDTH 16.4 % (12.0-16.0); RED CELL COUNT 3.46 10/6/uL (4.7-6.1); WHITE BLOOD CELLS 9.9 10/3/uL (4.5-10.5)
[2016-12-24 21:48] LABS: PLATELET COUNT 42 10/3/uL (150-400)
[2016-12-24 21:50] LABS: MANUAL DIFF NO %
[2016-12-24 21:59] LABS: CHLORIDE, SERUM 108 MMOL/L (96-112); CO2 (CARBON DIOXIDE) 24 MMOL/L (24-34); CREATININE 2.72 MG/DL (0.70-1.30); GFR AFRICAN AMERICAN 25 ML/MIN (>=60); GFR NON AFRICAN AMERICAN 22 ML/MIN (>=60); GLUCOSE, SERUM 157 MG/DL (60-99); SODIUM, SERUM 143 MMOL/L (135-148)
[2016-12-24 22:01] LABS: BUN (BLOOD UREA NITROGEN) 52 MG/DL (6-23)
[2016-12-24 22:25] LABS: BURR CELLS 1+ (3-10/OIF) (0-2/OIF)
[2016-12-24 22:28] LABS: RBC MORPHOLOGY ABN (NORMAL)
[2016-12-25 04:51] LABS: BASOPHILS 0.3 %; BASOPHILS ABSOLUTE 0.03 10/3/uL (0.0-0.16); EOSINOPHILS 1.9 %; EOSINOPHILS ABSOLUTE 0.22 10/3/uL (0.0-0.53); HEMOGLOBIN 10.3 g/dL (13.6-17.8); IMMATURE GRANULOCYTES 2.7 %; IMMATURE GRANULOCYTES ABSOLUTE 0.31 10/3/uL (0.0-0.11); LYMPHOCYTES 5.6 %; LYMPHOCYTES ABSOLUTE 0.64 10/3/uL (0.67-4.30); MEAN CORPUS HGB CONC 33.2 g/dL (32.0-36.0); MEAN CORPUSCULAR HEMOGLOB 29.4 pg (26.0-34.0); MEAN CORPUSCULAR VOLUME 88.6 fL (80-100); MONOCYTES 10.1 %; MONOCYTES ABSOLUTE 1.16 10/3/uL (0.21-1.20); NEUTROPHILS 79.4 %; NEUTROPHILS ABSOLUTE 9.08 10/3/uL (2.02-8.40); RBC DISTRIBUTION WIDTH 16.4 % (12.0-16.0); WHITE BLOOD CELLS 11.4 10/3/uL (4.5-10.5)
[2016-12-25 04:54] LABS: MANUAL DIFF NO %; PLATELET COUNT 32 10/3/uL (150-400)
[2016-12-25 05:04] LABS: INTERNATIONAL NORMAL RATI 1.7 UNITS (-); PROTIME (NOT ORD) 19.4 SEC (12.0-14.5)
[2016-12-25 05:08] LABS: ALBUMIN 1.8 G/DL (3.5-5.0); CALCIUM, SERUM 7.2 MG/DL (8.5-10.4); CHLORIDE, SERUM 105 MMOL/L (96-112); CO2 (CARBON DIOXIDE) 25 MMOL/L (24-34); CREATININE 2.33 MG/DL (0.70-1.30); GFR AFRICAN AMERICAN 31 ML/MIN (>=60); GFR NON AFRICAN AMERICAN 26 ML/MIN (>=60); GLUCOSE, SERUM 148 MG/DL (60-99); POTASSIUM, SERUM 3.8 MMOL/L (3.5-5.3); SODIUM, SERUM 141 MMOL/L (135-148)
[2016-12-25 05:13] LABS: BUN (BLOOD UREA NITROGEN) 42 MG/DL (6-23); PHOSPHORUS, SERUM 2.6 MG/DL (2.5-4.5)
[2016-12-25 05:22] LABS: PLATELET ESTIMATE DEC (ADEQUATE); RBC MORPHOLOGY NORM (NORMAL)
[2016-12-25 05:46] LABS: PROCALCITONIN 20.01 ng/mL (<0.5)
[2016-12-25 07:37] LABS: BE (BASE EXCESS) 0.2 MEQ/L (0 +/- 2.5); CARBOXYHEMOGLOBIN 0.2 % (0-3); HCO3 (ACTUAL BICARBONATE) 25.1 MEQ/L (23-27); HEMOBLOGIN CONTENT 11.1 G/DL (14-18); INSTRUMENT SERIAL # 11843; METHEMOGLOBIN 0.7 % (0-3); MODE CMV; O2 CONTENT 16.1 VOL% (18-24); OPERATOR ID 23712; PCO2 (CO2 TENSION) 42 MMHG (35-45); PO2 (O2 TENSION) 303 MMHG (79-93); SAMPLE Arterial; TIDAL VOLUME 500 ML
[2016-12-25 10:30] LABS: BUN (BLOOD UREA NITROGEN) 34 MG/DL (6-23); CALCIUM, SERUM 7.1 MG/DL (8.5-10.4); CHLORIDE, SERUM 105 MMOL/L (96-112); CO2 (CARBON DIOXIDE) 28 MMOL/L (24-34); CREATININE 1.95 MG/DL (0.70-1.30); GFR AFRICAN AMERICAN 38 ML/MIN (>=60); GFR NON AFRICAN AMERICAN 33 ML/MIN (>=60); GLUCOSE, SERUM 140 MG/DL (60-99); POTASSIUM, SERUM 3.9 MMOL/L (3.5-5.3); SODIUM, SERUM 140 MMOL/L (135-148)
[2016-12-25 13:33] LABS: BASOPHILS 0.2 %; BASOPHILS ABSOLUTE 0.03 10/3/uL (0.0-0.16); EOSINOPHILS 2.3 %; EOSINOPHILS ABSOLUTE 0.28 10/3/uL (0.0-0.53); HEMATOCRIT 30.5 % (40.0-51.0); HEMOGLOBIN 10.1 g/dL (13.6-17.8); IMMATURE GRANULOCYTES 2.8 %; IMMATURE GRANULOCYTES ABSOLUTE 0.35 10/3/uL (0.0-0.11); LYMPHOCYTES 5.2 %; LYMPHOCYTES ABSOLUTE 0.64 10/3/uL (0.67-4.30); MEAN CORPUS HGB CONC 33.1 g/dL (32.0-36.0); MEAN CORPUSCULAR HEMOGLOB 29.3 pg (26.0-34.0); MEAN CORPUSCULAR VOLUME 88.4 fL (80-100); MEAN PLATELET VOLUME 12.2 fL (9.2-13.0); MONOCYTES 8.1 %; NEUTROPHILS 81.4 %; PLATELET COUNT 24 10/3/uL (150-400); RBC DISTRIBUTION WIDTH 16.6 % (12.0-16.0); RED CELL COUNT 3.45 10/6/uL (4.7-6.1); WHITE BLOOD CELLS 12.4 10/3/uL (4.5-10.5)
[2016-12-25 13:34] LABS: MANUAL DIFF NO %
[2016-12-25 14:00] LABS: GIANT PLATELET RARE; RBC MORPHOLOGY NORM (NORMAL)
[2016-12-25 14:22] LABS: SMEAR FOR ABNORMAL CELLS SEE PATHOLOGY REPORT
[2016-12-25 14:25] LABS: BE (BASE EXCESS) 3.4 MEQ/L (0 +/- 2.5); CARBOXYHEMOGLOBIN 0.9 % (0-3); HCO3 (ACTUAL BICARBONATE) 27.6 MEQ/L (23-27); HEMOBLOGIN CONTENT 10.6 G/DL (14-18); INSTRUMENT SERIAL # 8083; METHEMOGLOBIN 0.1 % (0-3); MODE CMV; O2 CONTENT 14.6 VOL% (18-24); OPERATOR ID 14382; PCO2 (CO2 TENSION) 41 MMHG (35-45); PO2 (O2 TENSION) 101 MMHG (79-93); SAMPLE Arterial; TIDAL VOLUME 500 ML; pH 7.45 (7.37-7.43)
[2016-12-25 15:30] LABS: INTERNATIONAL NORMAL RATI 1.7 UNITS (-); PARTIAL THROMBO TIME 43.5 SEC (22.5-37.2); PROTIME (NOT ORD) 20.1 SEC (12.0-14.5)
[2016-12-25 15:32] LABS: D-DIMER QUANTITATIVE 3.11 ug/mLFEU (< 0.50)
[2016-12-25 16:25] LABS: BASOPHILS 0.2 %; BASOPHILS ABSOLUTE 0.02 10/3/uL (0.0-0.16); EOSINOPHILS 2.6 %; HEMATOCRIT 30.7 % (40.0-51.0); HEMOGLOBIN 10.6 g/dL (13.6-17.8); IMMATURE GRANULOCYTES 3.9 %; IMMATURE GRANULOCYTES ABSOLUTE 0.44 10/3/uL (0.0-0.11); LYMPHOCYTES 5.3 %; MEAN CORPUS HGB CONC 34.5 g/dL (32.0-36.0); MEAN CORPUSCULAR HEMOGLOB 30.3 pg (26.0-34.0); MEAN CORPUSCULAR VOLUME 87.7 fL (80-100); MONOCYTES 8.7 %; MONOCYTES ABSOLUTE 0.99 10/3/uL (0.21-1.20); NEUTROPHILS 79.3 %; NEUTROPHILS ABSOLUTE 9.03 10/3/uL (2.02-8.40); PLATELET COUNT 22 10/3/uL (150-400); RBC DISTRIBUTION WIDTH 16.5 % (12.0-16.0); WHITE BLOOD CELLS 11.4 10/3/uL (4.5-10.5)
[2016-12-25 16:26] LABS: MANUAL DIFF NO %
[2016-12-25 16:41] LABS: CHLORIDE, SERUM 102 MMOL/L (96-112); CO2 (CARBON DIOXIDE) 26 MMOL/L (24-34); CREATININE 1.75 MG/DL (0.70-1.30); GFR AFRICAN AMERICAN 43 ML/MIN (>=60); GFR NON AFRICAN AMERICAN 37 ML/MIN (>=60); GLUCOSE, SERUM 118 MG/DL (60-99); PHOSPHORUS, SERUM 2.5 MG/DL (2.5-4.5); SODIUM, SERUM 140 MMOL/L (135-148)
[2016-12-25 16:42] LABS: BUN (BLOOD UREA NITROGEN) 27 MG/DL (6-23)
[2016-12-25 17:01] LABS: RBC MORPHOLOGY NORM (NORMAL)
[2016-12-25 21:44] LABS: BASOPHILS 0.1 %; BASOPHILS ABSOLUTE 0.02 10/3/uL (0.0-0.16); EOSINOPHILS 1.5 %; EOSINOPHILS ABSOLUTE 0.21 10/3/uL (0.0-0.53); HEMATOCRIT 31.1 % (40.0-51.0); HEMOGLOBIN 10.4 g/dL (13.6-17.8); IMMATURE GRANULOCYTES 2.6 %; IMMATURE GRANULOCYTES ABSOLUTE 0.36 10/3/uL (0.0-0.11); LYMPHOCYTES 4.1 %; LYMPHOCYTES ABSOLUTE 0.58 10/3/uL (0.67-4.30); MEAN CORPUS HGB CONC 33.4 g/dL (32.0-36.0); MEAN CORPUSCULAR HEMOGLOB 29.5 pg (26.0-34.0); MEAN CORPUSCULAR VOLUME 88.1 fL (80-100); MEAN PLATELET VOLUME 12.1 fL (9.2-13.0); MONOCYTES 8.9 %; MONOCYTES ABSOLUTE 1.25 10/3/uL (0.21-1.20); NEUTROPHILS 82.8 %; NEUTROPHILS ABSOLUTE 11.62 10/3/uL (2.02-8.40); RBC DISTRIBUTION WIDTH 16.4 % (12.0-16.0); RED CELL COUNT 3.53 10/6/uL (4.7-6.1)
[2016-12-25 21:48] LABS: MANUAL DIFF NO %; PLATELET COUNT 24 10/3/uL (150-400)
[2016-12-25 21:54] LABS: BUN (BLOOD UREA NITROGEN) 24 MG/DL (6-23); CALCIUM, SERUM 7.2 MG/DL (8.5-10.4); CHLORIDE, SERUM 102 MMOL/L (96-112); CO2 (CARBON DIOXIDE) 28 MMOL/L (24-34); CREATININE 1.74 MG/DL (0.70-1.30); GFR AFRICAN AMERICAN 43 ML/MIN (>=60); GFR NON AFRICAN AMERICAN 38 ML/MIN (>=60); GLUCOSE, SERUM 125 MG/DL (60-99); POTASSIUM, SERUM 3.9 MMOL/L (3.5-5.3); SODIUM, SERUM 140 MMOL/L (135-148)
[2016-12-25 22:08] LABS: RBC MORPHOLOGY NORM (NORMAL)
[2016-12-26 03:48] LABS: CARBOXYHEMOGLOBIN 0.9 % (0-3); HCO3 (ACTUAL BICARBONATE) 28.3 MEQ/L (23-27); HEMOBLOGIN CONTENT 10.9 G/DL (14-18); INSTRUMENT SERIAL # 8083; METHEMOGLOBIN 0.3 % (0-3); MODE CMV; O2 CONTENT 15.1 VOL% (18-24); OPERATOR ID 23712; PCO2 (CO2 TENSION) 41 MMHG (35-45); PO2 (O2 TENSION) 113 MMHG (79-93); SAMPLE Arterial; TIDAL VOLUME 500 ML; pH 7.45 (7.37-7.43)
[2016-12-26 04:12] LABS: HEMOGLOBIN 10.5 g/dL (13.6-17.8); MEAN CORPUS HGB CONC 33.9 g/dL (32.0-36.0); MEAN CORPUSCULAR HEMOGLOB 29.8 pg (26.0-34.0); MEAN CORPUSCULAR VOLUME 88.1 fL (80-100); RBC DISTRIBUTION WIDTH 16.4 % (12.0-16.0); RED CELL COUNT 3.52 10/6/uL (4.7-6.1); WHITE BLOOD CELLS 14.6 10/3/uL (4.5-10.5)
[2016-12-26 04:14] LABS: MANUAL DIFF YES %; PLATELET COUNT 21 10/3/uL (150-400)
[2016-12-26 04:28] LABS: ALBUMIN 1.5 G/DL (3.5-5.0); CALCIUM, SERUM 7.3 MG/DL (8.5-10.4); CHLORIDE, SERUM 100 MMOL/L (96-112); CO2 (CARBON DIOXIDE) 26 MMOL/L (24-34); CREATININE 1.61 MG/DL (0.70-1.30); GFR AFRICAN AMERICAN 48 ML/MIN (>=60); GFR NON AFRICAN AMERICAN 41 ML/MIN (>=60); GLUCOSE, SERUM 128 MG/DL (60-99); PHOSPHORUS, SERUM 2.7 MG/DL (2.5-4.5); POTASSIUM, SERUM 3.8 MMOL/L (3.5-5.3); SODIUM, SERUM 140 MMOL/L (135-148)
[2016-12-26 04:29] LABS: BUN (BLOOD UREA NITROGEN) 18 MG/DL (6-23)
[2016-12-26 04:58] LABS: BAND NEUTROPHILS 10 %; IMMATURE GRANS ABSOLUTE (CALC) 0.29 10/3/uL (0.0-0.11); LYMPHOCYTES 4 %; LYMPHOCYTES ABSOLUTE (CALC) 0.58 10/3/uL (0.67-4.30); METAMYELOCYTES 2 %; MONOCYTES 5 %; MONOCYTES ABSOLUTE (CALC) 0.73 10/3/uL (0.21-1.20); NEUTROPHILS ABSOLUTE (CALC) 12.99 10/3/uL (2.02-8.40); RBC MORPHOLOGY NORM (NORMAL); SEGMENTED NEUTROPHIL (0) 79 %; TOTAL NUCLEATED CELLS 100
[2016-12-26 12:20] LABS: HEMATOCRIT 30.9 % (40.0-51.0); HEMOGLOBIN 10.7 g/dL (13.6-17.8); MEAN CORPUS HGB CONC 34.6 g/dL (32.0-36.0); MEAN CORPUSCULAR HEMOGLOB 30.4 pg (26.0-34.0); MEAN CORPUSCULAR VOLUME 87.8 fL (80-100); PLATELET COUNT 19 10/3/uL (150-400); RBC DISTRIBUTION WIDTH 16.3 % (12.0-16.0); RED CELL COUNT 3.52 10/6/uL (4.7-6.1); WHITE BLOOD CELLS 14.7 10/3/uL (4.5-10.5)
[2016-12-26 12:21] LABS: MANUAL DIFF YES %
[2016-12-26 12:34] LABS: BUN (BLOOD UREA NITROGEN) 16 MG/DL (6-23); CALCIUM, SERUM 7.2 MG/DL (8.5-10.4); CHLORIDE, SERUM 103 MMOL/L (96-112); CO2 (CARBON DIOXIDE) 27 MMOL/L (24-34); CREATININE 1.43 MG/DL (0.70-1.30); GFR AFRICAN AMERICAN 55 ML/MIN (>=60); GFR NON AFRICAN AMERICAN 48 ML/MIN (>=60); GLUCOSE, SERUM 128 MG/DL (60-99); SODIUM, SERUM 140 MMOL/L (135-148)
[2016-12-26 12:48] LABS: BAND NEUTROPHILS 7 %; EOSINOPHILS 3 %; EOSINOPHILS ABSOLUTE (CALC) 0.44 10/3/uL (0.0-0.53); IMMATURE GRANS ABSOLUTE (CALC) 0.44 10/3/uL (0.0-0.11); LYMPHOCYTES 5 %; LYMPHOCYTES ABSOLUTE (CALC) 0.74 10/3/uL (0.67-4.30); METAMYELOCYTES 3 %; MONOCYTES 5 %; MONOCYTES ABSOLUTE (CALC) 0.74 10/3/uL (0.21-1.20); NEUTROPHILS ABSOLUTE (CALC) 12.35 10/3/uL (2.02-8.40); SEGMENTED NEUTROPHIL (0) 77 %; TOTAL NUCLEATED CELLS 100
[2016-12-26 12:49] LABS: RBC MORPHOLOGY NORM (NORMAL)
[2016-12-26 13:48] LABS: PREALBUMIN 3.5 MG/DL (17.0-43.0)
[2016-12-26 16:21] LABS: BASOPHILS 0.3 %; BASOPHILS ABSOLUTE 0.04 10/3/uL (0.0-0.16); EOSINOPHILS 1.1 %; EOSINOPHILS ABSOLUTE 0.17 10/3/uL (0.0-0.53); IMMATURE GRANULOCYTES 4.6 %; IMMATURE GRANULOCYTES ABSOLUTE 0.71 10/3/uL (0.0-0.11); LYMPHOCYTES 4.7 %; LYMPHOCYTES ABSOLUTE 0.74 10/3/uL (0.67-4.30); MEAN CORPUS HGB CONC 34.4 g/dL (32.0-36.0); MEAN CORPUSCULAR HEMOGLOB 30.1 pg (26.0-34.0); MEAN CORPUSCULAR VOLUME 87.7 fL (80-100); MONOCYTES 5.1 %; NEUTROPHILS 84.2 %; NEUTROPHILS ABSOLUTE 13.13 10/3/uL (2.02-8.40); RBC DISTRIBUTION WIDTH 16.2 % (12.0-16.0); RED CELL COUNT 3.65 10/6/uL (4.7-6.1); WHITE BLOOD CELLS 15.6 10/3/uL (4.5-10.5)
[2016-12-26 16:23] LABS: MANUAL DIFF NO %; PLATELET COUNT 25 10/3/uL (150-400)
[2016-12-26 16:36] LABS: BUN (BLOOD UREA NITROGEN) 14 MG/DL (6-23); CALCIUM, SERUM 7.2 MG/DL (8.5-10.4); CHLORIDE, SERUM 100 MMOL/L (96-112); CO2 (CARBON DIOXIDE) 28 MMOL/L (24-34); CREATININE 1.35 MG/DL (0.70-1.30); GFR AFRICAN AMERICAN 59 ML/MIN (>=60); GFR NON AFRICAN AMERICAN 51 ML/MIN (>=60); GLUCOSE, SERUM 124 MG/DL (60-99); PHOSPHORUS, SERUM 2.8 MG/DL (2.5-4.5); SODIUM, SERUM 138 MMOL/L (135-148); VANCOMYCIN TROUGH 15.7 MCG/ML (10.0-20.0)
[2016-12-26 18:17] LABS: BAND NEUTROPHILS 1 %; EOSINOPHILS 3 %; EOSINOPHILS ABSOLUTE (CALC) 0.47 10/3/uL (0.0-0.53); GIANT PLATELET OCC; LYMPHOCYTES 5 %; LYMPHOCYTES ABSOLUTE (CALC) 0.78 10/3/uL (0.67-4.30); MONOCYTES 2 %; MONOCYTES ABSOLUTE (CALC) 0.31 10/3/uL (0.21-1.20); NEUTROPHILS ABSOLUTE (CALC) 14.04 10/3/uL (2.02-8.40); SEGMENTED NEUTROPHIL (0) 89 %; TOTAL NUCLEATED CELLS 100
[2016-12-26 22:11] LABS: HEMATOCRIT 32.9 % (40.0-51.0); HEMOGLOBIN 11.2 g/dL (13.6-17.8); MEAN CORPUSCULAR HEMOGLOB 29.9 pg (26.0-34.0); RBC DISTRIBUTION WIDTH 16.2 % (12.0-16.0); RED CELL COUNT 3.74 10/6/uL (4.7-6.1); WHITE BLOOD CELLS 18.8 10/3/uL (4.5-10.5)
[2016-12-26 22:21] LABS: PLATELET COUNT 34 10/3/uL (150-400)
[2016-12-26 22:22] LABS: MANUAL DIFF YES %
[2016-12-26 22:23] LABS: BUN (BLOOD UREA NITROGEN) 12 MG/DL (6-23); CHLORIDE, SERUM 99 MMOL/L (96-112); CO2 (CARBON DIOXIDE) 27 MMOL/L (24-34); CREATININE 1.24 MG/DL (0.70-1.30); GFR AFRICAN AMERICAN 66 ML/MIN (>=60); GFR NON AFRICAN AMERICAN 57 ML/MIN (>=60); GLUCOSE, SERUM 134 MG/DL (60-99); SODIUM, SERUM 138 MMOL/L (135-148)
[2016-12-26 23:03] LABS: BAND NEUTROPHILS 4 %; EOSINOPHILS 1 %; EOSINOPHILS ABSOLUTE (CALC) 0.19 10/3/uL (0.0-0.53); LYMPHOCYTES 2 %; LYMPHOCYTES ABSOLUTE (CALC) 0.38 10/3/uL (0.67-4.30); MONOCYTES 4 %; MONOCYTES ABSOLUTE (CALC) 0.75 10/3/uL (0.21-1.20); NEUTROPHILS ABSOLUTE (CALC) 17.48 10/3/uL (2.02-8.40); RBC MORPHOLOGY NORM (NORMAL); SEGMENTED NEUTROPHIL (0) 89 %; TOTAL NUCLEATED CELLS 100
[2016-12-27 04:37] LABS: BE (BASE EXCESS) 1.6 MEQ/L (0 +/- 2.5); CARBOXYHEMOGLOBIN 0.5 % (0-3); HCO3 (ACTUAL BICARBONATE) 25.4 MEQ/L (23-27); HEMOBLOGIN CONTENT 11.4 G/DL (14-18); INSTRUMENT SERIAL # 8083; METHEMOGLOBIN 0.3 % (0-3); MODE CMV; O2 CONTENT 15.9 VOL% (18-24); OPERATOR ID 13415; PCO2 (CO2 TENSION) 37 MMHG (35-45); PO2 (O2 TENSION) 127 MMHG (79-93); SAMPLE Arterial; TIDAL VOLUME 500 ML; pH 7.45 (7.37-7.43)
[2016-12-27 04:49] LABS: HEMATOCRIT 33.2 % (40.0-51.0); HEMOGLOBIN 11.4 g/dL (13.6-17.8); MEAN CORPUS HGB CONC 34.3 g/dL (32.0-36.0); MEAN CORPUSCULAR HEMOGLOB 30.3 pg (26.0-34.0); MEAN CORPUSCULAR VOLUME 88.3 fL (80-100); NUCLEATED RED BLOOD CELLS 0.3 /100WBC (0-0); RBC DISTRIBUTION WIDTH 16.3 % (12.0-16.0); RED CELL COUNT 3.76 10/6/uL (4.7-6.1)
[2016-12-27 04:51] LABS: MANUAL DIFF YES %; PLATELET COUNT 34 10/3/uL (150-400)
[2016-12-27 04:54] LABS: ALBUMIN 1.5 G/DL (3.5-5.0); BUN (BLOOD UREA NITROGEN) 10 MG/DL (6-23); CALCIUM, SERUM 7.2 MG/DL (8.5-10.4); CHLORIDE, SERUM 99 MMOL/L (96-112); CO2 (CARBON DIOXIDE) 27 MMOL/L (24-34); CREATININE 1.18 MG/DL (0.70-1.30); GFR AFRICAN AMERICAN 70 ML/MIN (>=60); GFR NON AFRICAN AMERICAN 60 ML/MIN (>=60); GLUCOSE, SERUM 143 MG/DL (60-99); SODIUM, SERUM 138 MMOL/L (135-148)
[2016-12-27 06:10] LABS: BAND NEUTROPHILS 1 %; EOSINOPHILS 1 %; EOSINOPHILS ABSOLUTE (CALC) 0.17 10/3/uL (0.0-0.53); IMMATURE GRANS ABSOLUTE (CALC) 0.51 10/3/uL (0.0-0.11); LYMPHOCYTES 9 %; LYMPHOCYTES ABSOLUTE (CALC) 1.53 10/3/uL (0.67-4.30); METAMYELOCYTES 3 %; NEUTROPHILS ABSOLUTE (CALC) 14.79 10/3/uL (2.02-8.40); SEGMENTED NEUTROPHIL (0) 86 %; TOTAL NUCLEATED CELLS 100
[2016-12-27 06:11] LABS: RBC MORPHOLOGY NORM (NORMAL)
[2016-12-27 12:26] LABS: HEMATOCRIT 32.2 % (40.0-51.0); HEMOGLOBIN 10.9 g/dL (13.6-17.8); MEAN CORPUS HGB CONC 33.9 g/dL (32.0-36.0); MEAN CORPUSCULAR HEMOGLOB 29.9 pg (26.0-34.0); MEAN CORPUSCULAR VOLUME 88.5 fL (80-100); RBC DISTRIBUTION WIDTH 16.4 % (12.0-16.0); RED CELL COUNT 3.64 10/6/uL (4.7-6.1); WHITE BLOOD CELLS 18.1 10/3/uL (4.5-10.5)
[2016-12-27 12:27] LABS: PLATELET COUNT 44 10/3/uL (150-400)
[2016-12-27 12:28] LABS: MANUAL DIFF YES %
[2016-12-27 12:36] LABS: BUN (BLOOD UREA NITROGEN) 9 MG/DL (6-23); CALCIUM, SERUM 7.4 MG/DL (8.5-10.4); CHLORIDE, SERUM 97 MMOL/L (96-112); CO2 (CARBON DIOXIDE) 30 MMOL/L (24-34); CREATININE 1.12 MG/DL (0.70-1.30); GFR AFRICAN AMERICAN 74 ML/MIN (>=60); GFR NON AFRICAN AMERICAN 64 ML/MIN (>=60); GLUCOSE, SERUM 119 MG/DL (60-99); SODIUM, SERUM 139 MMOL/L (135-148)
[2016-12-27 12:45] LABS: SEGMENTED NEUTROPHIL (0) 77 %; TOTAL NUCLEATED CELLS 100
[2016-12-27 12:47] LABS: BAND NEUTROPHILS 10 %; IMMATURE GRANS ABSOLUTE (CALC) 1.09 10/3/uL (0.0-0.11); LYMPHOCYTES 4 %; LYMPHOCYTES ABSOLUTE (CALC) 0.72 10/3/uL (0.67-4.30); METAMYELOCYTES 6 %; MONOCYTES 3 %; MONOCYTES ABSOLUTE (CALC) 0.54 10/3/uL (0.21-1.20); NEUTROPHILS ABSOLUTE (CALC) 15.75 10/3/uL (2.02-8.40); RBC MORPHOLOGY NORM (NORMAL)
[2016-12-27 16:16] LABS: HEMATOCRIT 31.3 % (40.0-51.0); HEMOGLOBIN 10.9 g/dL (13.6-17.8); MEAN CORPUS HGB CONC 34.8 g/dL (32.0-36.0); MEAN CORPUSCULAR HEMOGLOB 30.6 pg (26.0-34.0); MEAN CORPUSCULAR VOLUME 87.9 fL (80-100); MEAN PLATELET VOLUME 12.3 fL (9.2-13.0); PLATELET COUNT 52 10/3/uL (150-400); RBC DISTRIBUTION WIDTH 16.3 % (12.0-16.0); RED CELL COUNT 3.56 10/6/uL (4.7-6.1); WHITE BLOOD CELLS 18.5 10/3/uL (4.5-10.5)
[2016-12-27 16:25] LABS: MANUAL DIFF YES %
[2016-12-27 16:28] LABS: BUN (BLOOD UREA NITROGEN) 9 MG/DL (6-23); CALCIUM, SERUM 7.7 MG/DL (8.5-10.4); CHLORIDE, SERUM 99 MMOL/L (96-112); CO2 (CARBON DIOXIDE) 28 MMOL/L (24-34); CREATININE 1.19 MG/DL (0.70-1.30); GFR AFRICAN AMERICAN 69 ML/MIN (>=60); GFR NON AFRICAN AMERICAN 59 ML/MIN (>=60); GLUCOSE, SERUM 113 MG/DL (60-99); PHOSPHORUS, SERUM 2.9 MG/DL (2.5-4.5); POTASSIUM, SERUM 4.1 MMOL/L (3.5-5.3); SODIUM, SERUM 138 MMOL/L (135-148)
[2016-12-27 17:02] LABS: BAND NEUTROPHILS 4 %; IMMATURE GRANS ABSOLUTE (CALC) 0.74 10/3/uL (0.0-0.11); LYMPHOCYTES 3 %; LYMPHOCYTES ABSOLUTE (CALC) 0.56 10/3/uL (0.67-4.30); MONOCYTES 4 %; MONOCYTES ABSOLUTE (CALC) 0.74 10/3/uL (0.21-1.20); MYELOCYTES 4 %; NEUTROPHILS ABSOLUTE (CALC) 16.47 10/3/uL (2.02-8.40); SEGMENTED NEUTROPHIL (0) 85 %; TOTAL NUCLEATED CELLS 100
[2016-12-27 17:03] LABS: PLATELET ESTIMATE DEC (ADEQUATE)
[2016-12-27 21:32] LABS: STONE COMPOSITION TWO DNR (())
[2016-12-27 22:35] LABS: HEMATOCRIT 31.3 % (40.0-51.0); HEMOGLOBIN 10.6 g/dL (13.6-17.8); MEAN CORPUS HGB CONC 33.9 g/dL (32.0-36.0); MEAN CORPUSCULAR HEMOGLOB 29.9 pg (26.0-34.0); MEAN CORPUSCULAR VOLUME 88.2 fL (80-100); PLATELET COUNT 61 10/3/uL (150-400); RBC DISTRIBUTION WIDTH 16.1 % (12.0-16.0); RED CELL COUNT 3.55 10/6/uL (4.7-6.1); WHITE BLOOD CELLS 19.9 10/3/uL (4.5-10.5)
[2016-12-27 22:39] LABS: MANUAL DIFF YES %
[2016-12-27 22:47] LABS: BUN (BLOOD UREA NITROGEN) 9 MG/DL (6-23); CALCIUM, SERUM 7.5 MG/DL (8.5-10.4); CHLORIDE, SERUM 99 MMOL/L (96-112); CO2 (CARBON DIOXIDE) 28 MMOL/L (24-34); CREATININE 1.19 MG/DL (0.70-1.30); GFR AFRICAN AMERICAN 69 ML/MIN (>=60); GFR NON AFRICAN AMERICAN 59 ML/MIN (>=60); GLUCOSE, SERUM 135 MG/DL (60-99); POTASSIUM, SERUM 3.7 MMOL/L (3.5-5.3); SODIUM, SERUM 138 MMOL/L (135-148)
[2016-12-27 23:04] LABS: BAND NEUTROPHILS 3 %; EOSINOPHILS 3 %; LYMPHOCYTES 6 %; LYMPHOCYTES ABSOLUTE (CALC) 1.19 10/3/uL (0.67-4.30); MONOCYTES 3 %; MYELOCYTES 2 %; NEUTROPHILS ABSOLUTE (CALC) 17.11 10/3/uL (2.02-8.40); SEGMENTED NEUTROPHIL (0) 83 %; TOTAL NUCLEATED CELLS 100
[2016-12-27 23:05] LABS: HYPOCHROMIA 1+ (3-10/OIF) (0-2/OIF); PLATELET ESTIMATE DEC (ADEQUATE)
[2016-12-28 03:43] LABS: HEMATOCRIT 31.4 % (40.0-51.0); HEMOGLOBIN 10.6 g/dL (13.6-17.8); MEAN CORPUS HGB CONC 33.8 g/dL (32.0-36.0); MEAN CORPUSCULAR HEMOGLOB 29.9 pg (26.0-34.0); MEAN CORPUSCULAR VOLUME 88.5 fL (80-100); MEAN PLATELET VOLUME 12.4 fL (9.2-13.0); PLATELET COUNT 61 10/3/uL (150-400); RBC DISTRIBUTION WIDTH 16.2 % (12.0-16.0); RED CELL COUNT 3.55 10/6/uL (4.7-6.1); WHITE BLOOD CELLS 21.8 10/3/uL (4.5-10.5)
[2016-12-28 03:45] LABS: MANUAL DIFF YES %
[2016-12-28 03:55] LABS: BE (BASE EXCESS) 4.7 MEQ/L (0 +/- 2.5); CARBOXYHEMOGLOBIN 0.4 % (0-3); HCO3 (ACTUAL BICARBONATE) 28.5 MEQ/L (23-27); HEMOBLOGIN CONTENT 11.1 G/DL (14-18); INSTRUMENT SERIAL # 8083; METHEMOGLOBIN 0.1 % (0-3); MODE CMV; O2 CONTENT 15.6 VOL% (18-24); OPERATOR ID 13415; PCO2 (CO2 TENSION) 39 MMHG (35-45); PO2 (O2 TENSION) 138 MMHG (79-93); SAMPLE Arterial; TIDAL VOLUME 500 ML; pH 7.48 (7.37-7.43)
[2016-12-28 03:59] LABS: ALBUMIN 1.4 G/DL (3.5-5.0); ALKALINE PHOSPHATASE 53 U/L (45-117); BUN (BLOOD UREA NITROGEN) 9 MG/DL (6-23); CHLORIDE, SERUM 98 MMOL/L (96-112); CO2 (CARBON DIOXIDE) 27 MMOL/L (24-34); CREATININE 1.21 MG/DL (0.70-1.30); GFR AFRICAN AMERICAN 67 ML/MIN (>=60); GFR NON AFRICAN AMERICAN 58 ML/MIN (>=60); GLUCOSE, SERUM 143 MG/DL (60-99); PHOSPHORUS, SERUM 3.2 MG/DL (2.5-4.5); POTASSIUM, SERUM 4.3 MMOL/L (3.5-5.3); SGOT(AST) 27 U/L (5-40); SGPT(ALT) 17 U/L (5-65); SODIUM, SERUM 137 MMOL/L (135-148); TOTAL PROTEIN 5.8 G/DL (6.0-8.5)
[2016-12-28 04:04] LABS: A/G RATIO 0.3 (0.7-1.9); GLOBULIN 4.4 G/DL (2.5-4.1); TOTAL BILIRUBIN 1.5 MG/DL (0-1.2)
[2016-12-28 04:15] LABS: PREALBUMIN 4.2 MG/DL (17.0-43.0)
[2016-12-28 04:33] LABS: BAND NEUTROPHILS 7 %; IMMATURE GRANS ABSOLUTE (CALC) 0.44 10/3/uL (0.0-0.11); LYMPHOCYTES 4 %; LYMPHOCYTES ABSOLUTE (CALC) 0.87 10/3/uL (0.67-4.30); METAMYELOCYTES 2 %; MONOCYTES 4 %; MONOCYTES ABSOLUTE (CALC) 0.87 10/3/uL (0.21-1.20); NEUTROPHILS ABSOLUTE (CALC) 19.62 10/3/uL (2.02-8.40); PLATELET ESTIMATE DEC (ADEQUATE); RBC MORPHOLOGY NORM (NORMAL); SEGMENTED NEUTROPHIL (0) 83 %; TOTAL NUCLEATED CELLS 100
[2016-12-28 14:29] LABS: ASCORBIC ACID (UR NOT ORDER) NEG (NEG); BILIRUBIN, URINE NEGATIVE (NEG); KETONE, URINE NEGATIVE (NEG); LEUKOCYTE ESTERASE(NOT OR LARGE (NEG); WBC (NOT ORDERED) (RFLEX) 83 (0-5)
[2016-12-28 15:51] LABS: HEMATOCRIT 29.3 % (40.0-51.0); HEMOGLOBIN 9.7 g/dL (13.6-17.8); MEAN CORPUS HGB CONC 33.1 g/dL (32.0-36.0); MEAN CORPUSCULAR HEMOGLOB 29.7 pg (26.0-34.0); MEAN CORPUSCULAR VOLUME 89.6 fL (80-100); NUCLEATED RED BLOOD CELLS 0.6 /100WBC (0-0); PLATELET COUNT 68 10/3/uL (150-400); RBC DISTRIBUTION WIDTH 16.1 % (12.0-16.0); RED CELL COUNT 3.27 10/6/uL (4.7-6.1); WHITE BLOOD CELLS 17.5 10/3/uL (4.5-10.5)
[2016-12-28 15:52] LABS: MANUAL DIFF YES %
[2016-12-28 15:59] LABS: CALCIUM, SERUM 7.7 MG/DL (8.5-10.4); CHLORIDE, SERUM 97 MMOL/L (96-112); CO2 (CARBON DIOXIDE) 27 MMOL/L (24-34); GFR AFRICAN AMERICAN 38 ML/MIN (>=60); GFR NON AFRICAN AMERICAN 33 ML/MIN (>=60); GLUCOSE, SERUM 147 MG/DL (60-99); POTASSIUM, SERUM 4.3 MMOL/L (3.5-5.3); SODIUM, SERUM 135 MMOL/L (135-148)
[2016-12-28 16:00] LABS: BUN (BLOOD UREA NITROGEN) 15 MG/DL (6-23); CREATININE 1.95 MG/DL (0.70-1.30)
[2016-12-28 16:07] LABS: BAND NEUTROPHILS 8 %; IMMATURE GRANS ABSOLUTE (CALC) 0.35 10/3/uL (0.0-0.11); LYMPHOCYTES 5 %; LYMPHOCYTES ABSOLUTE (CALC) 0.88 10/3/uL (0.67-4.30); MONOCYTES 4 %; MYELOCYTES 2 %; NEUTROPHILS ABSOLUTE (CALC) 15.58 10/3/uL (2.02-8.40); PLATELET ESTIMATE DEC (ADEQUATE); POIKILOCYTOSIS 1+ (5-10/OIF) (0-5/OIF); SEGMENTED NEUTROPHIL (0) 81 %; TOTAL NUCLEATED CELLS 100
[2016-12-28 18:11] LABS: PROCALCITONIN 4.32 ng/mL (<0.5)
[2016-12-29 03:37] LABS: BE (BASE EXCESS) 4.8 MEQ/L (0 +/- 2.5); CARBOXYHEMOGLOBIN 0.5 % (0-3); HCO3 (ACTUAL BICARBONATE) 29.1 MEQ/L (23-27); INSTRUMENT SERIAL # 8083; METHEMOGLOBIN 0.3 % (0-3); MODE CMV; O2 CONTENT 14.9 VOL% (18-24); OPERATOR ID 31061; PCO2 (CO2 TENSION) 42 MMHG (35-45); PO2 (O2 TENSION) 86 MMHG (79-93); SAMPLE Arterial; TIDAL VOLUME 500 ML; pH 7.46 (7.37-7.43)
[2016-12-29 03:47] LABS: HEMATOCRIT 28.3 % (40.0-51.0); HEMOGLOBIN 9.7 g/dL (13.6-17.8); MEAN CORPUS HGB CONC 34.3 g/dL (32.0-36.0); MEAN CORPUSCULAR HEMOGLOB 30.9 pg (26.0-34.0); MEAN CORPUSCULAR VOLUME 90.1 fL (80-100); MEAN PLATELET VOLUME 11.3 fL (9.2-13.0); PLATELET COUNT 81 10/3/uL (150-400); RBC DISTRIBUTION WIDTH 16.1 % (12.0-16.0); RED CELL COUNT 3.14 10/6/uL (4.7-6.1); WHITE BLOOD CELLS 21.5 10/3/uL (4.5-10.5)
[2016-12-29 03:50] LABS: MANUAL DIFF YES %
[2016-12-29 04:00] LABS: CALCIUM, SERUM 7.8 MG/DL (8.5-10.4); CHLORIDE, SERUM 94 MMOL/L (96-112); CO2 (CARBON DIOXIDE) 28 MMOL/L (24-34); GLUCOSE, SERUM 128 MG/DL (60-99); POTASSIUM, SERUM 4.3 MMOL/L (3.5-5.3); SODIUM, SERUM 133 MMOL/L (135-148); VANCOMYCIN TROUGH 20.8 MCG/ML (10.0-20.0)
[2016-12-29 04:01] LABS: BUN (BLOOD UREA NITROGEN) 21 MG/DL (6-23); CREATININE 2.53 MG/DL (0.70-1.30); GFR AFRICAN AMERICAN 28 ML/MIN (>=60); GFR NON AFRICAN AMERICAN 24 ML/MIN (>=60); PHOSPHORUS, SERUM 5.2 MG/DL (2.5-4.5)
[2016-12-29 04:13] LABS: BAND NEUTROPHILS 1 %; IMMATURE GRANS ABSOLUTE (CALC) 0.43 10/3/uL (0.0-0.11); LYMPHOCYTES 3 %; LYMPHOCYTES ABSOLUTE (CALC) 0.65 10/3/uL (0.67-4.30); MONOCYTES 1 %; MONOCYTES ABSOLUTE (CALC) 0.22 10/3/uL (0.21-1.20); MYELOCYTES 2 %; NEUTROPHILS ABSOLUTE (CALC) 20.21 10/3/uL (2.02-8.40); SEGMENTED NEUTROPHIL (0) 93 %; TOTAL NUCLEATED CELLS 100
[2016-12-29 04:14] LABS: PLATELET ESTIMATE SLT DEC (ADEQUATE)
[2016-12-29 04:20] LABS: RBC MORPHOLOGY ABN (NORMAL)
[2016-12-29 13:10] LABS: HEMOGLOBIN 9.3 g/dL (13.6-17.8); MEAN CORPUS HGB CONC 34.4 g/dL (32.0-36.0); MEAN CORPUSCULAR HEMOGLOB 30.5 pg (26.0-34.0); MEAN CORPUSCULAR VOLUME 88.5 fL (80-100); MEAN PLATELET VOLUME 11.7 fL (9.2-13.0); NUCLEATED RED BLOOD CELLS 0.1 /100WBC (0-0); PLATELET COUNT 93 10/3/uL (150-400); RBC DISTRIBUTION WIDTH 16.1 % (12.0-16.0); RED CELL COUNT 3.05 10/6/uL (4.7-6.1); WHITE BLOOD CELLS 20.4 10/3/uL (4.5-10.5)
[2016-12-29 13:13] LABS: MANUAL DIFF YES %
[2016-12-29 13:14] LABS: A/G RATIO 0.3 (0.7-1.9); ALBUMIN 1.4 G/DL (3.5-5.0); ALKALINE PHOSPHATASE 51 U/L (45-117); CALCIUM, SERUM 7.5 MG/DL (8.5-10.4); CHLORIDE, SERUM 94 MMOL/L (96-112); CO2 (CARBON DIOXIDE) 27 MMOL/L (24-34); GFR AFRICAN AMERICAN 24 ML/MIN (>=60); GFR NON AFRICAN AMERICAN 21 ML/MIN (>=60); GLOBULIN 4.4 G/DL (2.5-4.1); GLUCOSE, SERUM 122 MG/DL (60-99); POTASSIUM, SERUM 4.4 MMOL/L (3.5-5.3); SGOT(AST) 26 U/L (5-40); SGPT(ALT) 14 U/L (5-65); SODIUM, SERUM 133 MMOL/L (135-148); TOTAL PROTEIN 5.8 G/DL (6.0-8.5)
[2016-12-29 13:15] LABS: BUN (BLOOD UREA NITROGEN) 28 MG/DL (6-23); TOTAL BILIRUBIN 2.1 MG/DL (0-1.2)
[2016-12-29 13:23] LABS: BAND NEUTROPHILS 12 %; IMMATURE GRANS ABSOLUTE (CALC) 0.41 10/3/uL (0.0-0.11); LYMPHOCYTES 3 %; LYMPHOCYTES ABSOLUTE (CALC) 0.61 10/3/uL (0.67-4.30); METAMYELOCYTES 1 %; MONOCYTES 4 %; MONOCYTES ABSOLUTE (CALC) 0.82 10/3/uL (0.21-1.20); MYELOCYTES 1 %; NEUTROPHILS ABSOLUTE (CALC) 18.56 10/3/uL (2.02-8.40); PLATELET ESTIMATE DEC (ADEQUATE); SEGMENTED NEUTROPHIL (0) 79 %; TOTAL NUCLEATED CELLS 100
[2016-12-29 13:24] LABS: POLYCHROMASIA 1+ (2-5/OIF) (0-1/OIF); TARGET CELLS FEW (3-10/OIF) (0-1/OIF)
[2016-12-29 16:38] LABS: BASOPHILS 0.2 %; BASOPHILS ABSOLUTE 0.04 10/3/uL (0.0-0.16); EOSINOPHILS 0.6 %; EOSINOPHILS ABSOLUTE 0.13 10/3/uL (0.0-0.53); HEMATOCRIT 25.9 % (40.0-51.0); HEMOGLOBIN 8.8 g/dL (13.6-17.8); IMMATURE GRANULOCYTES 4.6 %; IMMATURE GRANULOCYTES ABSOLUTE 0.98 10/3/uL (0.0-0.11); LYMPHOCYTES 4.5 %; LYMPHOCYTES ABSOLUTE 0.95 10/3/uL (0.67-4.30); MANUAL DIFF NO %; MEAN CORPUSCULAR HEMOGLOB 30.2 pg (26.0-34.0); MEAN PLATELET VOLUME 10.9 fL (9.2-13.0); MONOCYTES 5.1 %; MONOCYTES ABSOLUTE 1.08 10/3/uL (0.21-1.20); NEUTROPHILS ABSOLUTE 17.92 10/3/uL (2.02-8.40); PLATELET COUNT 82 10/3/uL (150-400); RED CELL COUNT 2.91 10/6/uL (4.7-6.1); WHITE BLOOD CELLS 21.1 10/3/uL (4.5-10.5)
[2016-12-29 16:47] LABS: BUN (BLOOD UREA NITROGEN) 26 MG/DL (6-23); CALCIUM, SERUM 7.4 MG/DL (8.5-10.4); CHLORIDE, SERUM 96 MMOL/L (96-112); CO2 (CARBON DIOXIDE) 27 MMOL/L (24-34); CREATININE 2.49 MG/DL (0.70-1.30); GFR AFRICAN AMERICAN 28 ML/MIN (>=60); GFR NON AFRICAN AMERICAN 24 ML/MIN (>=60); GLUCOSE, SERUM 121 MG/DL (60-99); PHOSPHORUS, SERUM 5.3 MG/DL (2.5-4.5); POTASSIUM, SERUM 4.2 MMOL/L (3.5-5.3); SODIUM, SERUM 134 MMOL/L (135-148)
[2016-12-29 17:05] LABS: ANISOCYTOSIS 1+ (5-10/OIF) (0-5/OIF); BAND NEUTROPHILS 8 %; IMMATURE GRANS ABSOLUTE (CALC) 0.21 10/3/uL (0.0-0.11); LYMPHOCYTES 2 %; LYMPHOCYTES ABSOLUTE (CALC) 0.42 10/3/uL (0.67-4.30); METAMYELOCYTES 1 %; MONOCYTES 3 %; MONOCYTES ABSOLUTE (CALC) 0.63 10/3/uL (0.21-1.20); NEUTROPHILS ABSOLUTE (CALC) 19.83 10/3/uL (2.02-8.40); PLATELET ESTIMATE DEC (ADEQUATE); SEGMENTED NEUTROPHIL (0) 86 %; TOTAL NUCLEATED CELLS 100
[2016-12-29 17:06] LABS: MACROCYTES 1+ (5-10/OIF) (0-5/OIF); MICROCYTES 1+ (5-10/OIF) (0-5/OIF)
[2016-12-29 17:08] LABS: TEARDROP SHAPED RBCS OCC (0-2/OIF)
[2016-12-29 22:08] LABS: HEMATOCRIT 26.2 % (40.0-51.0); HEMOGLOBIN 8.9 g/dL (13.6-17.8); MEAN CORPUSCULAR HEMOGLOB 30.1 pg (26.0-34.0); MEAN CORPUSCULAR VOLUME 88.5 fL (80-100); PLATELET COUNT 92 10/3/uL (150-400); RBC DISTRIBUTION WIDTH 16.1 % (12.0-16.0); RED CELL COUNT 2.96 10/6/uL (4.7-6.1); WHITE BLOOD CELLS 23.7 10/3/uL (4.5-10.5)
[2016-12-29 22:10] LABS: MANUAL DIFF YES %
[2016-12-29 22:21] LABS: CALCIUM, SERUM 7.2 MG/DL (8.5-10.4); CHLORIDE, SERUM 97 MMOL/L (96-112); CO2 (CARBON DIOXIDE) 28 MMOL/L (24-34); CREATININE 2.08 MG/DL (0.70-1.30); GFR AFRICAN AMERICAN 35 ML/MIN (>=60); GFR NON AFRICAN AMERICAN 30 ML/MIN (>=60); GLUCOSE, SERUM 143 MG/DL (60-99); POTASSIUM, SERUM 4.3 MMOL/L (3.5-5.3); SODIUM, SERUM 135 MMOL/L (135-148)
[2016-12-29 22:23] LABS: BUN (BLOOD UREA NITROGEN) 22 MG/DL (6-23)
[2016-12-29 22:45] LABS: ANISOCYTOSIS 1+ (5-10/OIF) (0-5/OIF); BAND NEUTROPHILS 3 %; IMMATURE GRANS ABSOLUTE (CALC) 0.47 10/3/uL (0.0-0.11); LYMPHOCYTES 5 %; LYMPHOCYTES ABSOLUTE (CALC) 1.19 10/3/uL (0.67-4.30); MACROCYTES 1+ (5-10/OIF) (0-5/OIF); METAMYELOCYTES 2 %; MONOCYTES 2 %; MONOCYTES ABSOLUTE (CALC) 0.47 10/3/uL (0.21-1.20); NEUTROPHILS ABSOLUTE (CALC) 21.57 10/3/uL (2.02-8.40); PLATELET ESTIMATE DEC (ADEQUATE); SEGMENTED NEUTROPHIL (0) 88 %; TOTAL NUCLEATED CELLS 100
[2016-12-30 03:34] LABS: BE (BASE EXCESS) 4.3 MEQ/L (0 +/- 2.5); CARBOXYHEMOGLOBIN 0.6 % (0-3); HCO3 (ACTUAL BICARBONATE) 28.7 MEQ/L (23-27); HEMOBLOGIN CONTENT 8.8 G/DL (14-18); INSTRUMENT SERIAL # 8083; METHEMOGLOBIN 0.1 % (0-3); O2 CONTENT 12.2 VOL% (18-24); PCO2 (CO2 TENSION) 43 MMHG (35-45); PO2 (O2 TENSION) 100 MMHG (79-93); pH 7.45 (7.37-7.43)
[2016-12-30 03:35] LABS: MODE CMV; OPERATOR ID 16469; SAMPLE Arterial; TIDAL VOLUME 500 ML
[2016-12-30 03:50] LABS: HEMATOCRIT 24.6 % (40.0-51.0); HEMOGLOBIN 8.4 g/dL (13.6-17.8); MANUAL DIFF YES %; MEAN CORPUS HGB CONC 34.1 g/dL (32.0-36.0); MEAN CORPUSCULAR HEMOGLOB 30.1 pg (26.0-34.0); MEAN CORPUSCULAR VOLUME 88.2 fL (80-100); MEAN PLATELET VOLUME 11.1 fL (9.2-13.0); PLATELET COUNT 85 10/3/uL (150-400); RED CELL COUNT 2.79 10/6/uL (4.7-6.1); WHITE BLOOD CELLS 20.5 10/3/uL (4.5-10.5)
[2016-12-30 03:59] LABS: BUN (BLOOD UREA NITROGEN) 24 MG/DL (6-23); CHLORIDE, SERUM 98 MMOL/L (96-112); CO2 (CARBON DIOXIDE) 29 MMOL/L (24-34); CREATININE 1.75 MG/DL (0.70-1.30); GFR AFRICAN AMERICAN 43 ML/MIN (>=60); GFR NON AFRICAN AMERICAN 37 ML/MIN (>=60); GLUCOSE, SERUM 116 MG/DL (60-99); POTASSIUM, SERUM 4.2 MMOL/L (3.5-5.3); SODIUM, SERUM 137 MMOL/L (135-148)
[2016-12-30 04:01] LABS: CALCIUM, SERUM 6.9 MG/DL (8.5-10.4); PHOSPHORUS, SERUM 3.2 MG/DL (2.5-4.5); TRIGLYCERIDE 165 MG/DL (< 150)
[2016-12-30 04:59] LABS: BAND NEUTROPHILS 6 %; EOSINOPHILS 1 %; EOSINOPHILS ABSOLUTE (CALC) 0.21 10/3/uL (0.0-0.53); IMMATURE GRANS ABSOLUTE (CALC) 0.21 10/3/uL (0.0-0.11); LYMPHOCYTES 7 %; LYMPHOCYTES ABSOLUTE (CALC) 1.44 10/3/uL (0.67-4.30); METAMYELOCYTES 1 %; MONOCYTES 6 %; MONOCYTES ABSOLUTE (CALC) 1.23 10/3/uL (0.21-1.20); NEUTROPHILS ABSOLUTE (CALC) 17.43 10/3/uL (2.02-8.40); PLATELET ESTIMATE DEC (ADEQUATE); SEGMENTED NEUTROPHIL (0) 79 %; TOTAL NUCLEATED CELLS 100
[2016-12-30 05:00] LABS: ANISOCYTOSIS 1+ (5-10/OIF) (0-5/OIF); POLYCHROMASIA 1+ (2-5/OIF) (0-1/OIF)
[2016-12-30 10:09] LABS: HEMATOCRIT 24.5 % (40.0-51.0); HEMOGLOBIN 8.5 g/dL (13.6-17.8); MEAN CORPUS HGB CONC 34.7 g/dL (32.0-36.0); MEAN CORPUSCULAR HEMOGLOB 30.4 pg (26.0-34.0); MEAN CORPUSCULAR VOLUME 87.5 fL (80-100); MEAN PLATELET VOLUME 11.5 fL (9.2-13.0); PLATELET COUNT 99 10/3/uL (150-400); RBC DISTRIBUTION WIDTH 16.2 % (12.0-16.0); WHITE BLOOD CELLS 20.3 10/3/uL (4.5-10.5)
[2016-12-30 10:10] LABS: MANUAL DIFF YES %
[2016-12-30 10:21] LABS: BUN (BLOOD UREA NITROGEN) 25 MG/DL (6-23); CALCIUM, SERUM 7.1 MG/DL (8.5-10.4); CHLORIDE, SERUM 97 MMOL/L (96-112); CO2 (CARBON DIOXIDE) 30 MMOL/L (24-34); GFR AFRICAN AMERICAN 52 ML/MIN (>=60); GFR NON AFRICAN AMERICAN 45 ML/MIN (>=60); GLUCOSE, SERUM 104 MG/DL (60-99); POTASSIUM, SERUM 3.9 MMOL/L (3.5-5.3); SODIUM, SERUM 137 MMOL/L (135-148)
[2016-12-30 10:35] LABS: BAND NEUTROPHILS 12 %; IMMATURE GRANS ABSOLUTE (CALC) 0.81 10/3/uL (0.0-0.11); LYMPHOCYTES 5 %; LYMPHOCYTES ABSOLUTE (CALC) 1.02 10/3/uL (0.67-4.30); METAMYELOCYTES 4 %; MONOCYTES 7 %; MONOCYTES ABSOLUTE (CALC) 1.42 10/3/uL (0.21-1.20); NEUTROPHILS ABSOLUTE (CALC) 17.05 10/3/uL (2.02-8.40); PLATELET ESTIMATE DEC (ADEQUATE); SEGMENTED NEUTROPHIL (0) 72 %; TOTAL NUCLEATED CELLS 100
[2016-12-30 10:36] LABS: HYPOCHROMIA 1+ (3-10/OIF) (0-2/OIF)
[2016-12-30 16:24] LABS: HEMOGLOBIN 8.6 g/dL (13.6-17.8); MEAN CORPUS HGB CONC 33.1 g/dL (32.0-36.0); MEAN CORPUSCULAR HEMOGLOB 29.6 pg (26.0-34.0); MEAN CORPUSCULAR VOLUME 89.3 fL (80-100); MEAN PLATELET VOLUME 10.5 fL (9.2-13.0); PLATELET COUNT 103 10/3/uL (150-400); RBC DISTRIBUTION WIDTH 16.1 % (12.0-16.0); RED CELL COUNT 2.91 10/6/uL (4.7-6.1); WHITE BLOOD CELLS 20.2 10/3/uL (4.5-10.5)
[2016-12-30 16:27] LABS: MANUAL DIFF YES %
[2016-12-30 16:37] LABS: BUN (BLOOD UREA NITROGEN) 28 MG/DL (6-23); CALCIUM, SERUM 7.6 MG/DL (8.5-10.4); CHLORIDE, SERUM 97 MMOL/L (96-112); CO2 (CARBON DIOXIDE) 32 MMOL/L (24-34); CREATININE 1.39 MG/DL (0.70-1.30); GFR AFRICAN AMERICAN 57 ML/MIN (>=60); GFR NON AFRICAN AMERICAN 49 ML/MIN (>=60); GLUCOSE, SERUM 116 MG/DL (60-99); POTASSIUM, SERUM 3.8 MMOL/L (3.5-5.3); SODIUM, SERUM 137 MMOL/L (135-148)
[2016-12-30 16:38] LABS: PHOSPHORUS, SERUM 2.2 MG/DL (2.5-4.5)
[2016-12-30 17:31] LABS: BAND NEUTROPHILS 4 %; IMMATURE GRANS ABSOLUTE (CALC) 0.61 10/3/uL (0.0-0.11); LYMPHOCYTES 2 %; METAMYELOCYTES 3 %; MONOCYTES 3 %; MONOCYTES ABSOLUTE (CALC) 0.61 10/3/uL (0.21-1.20); NEUTROPHILS ABSOLUTE (CALC) 18.58 10/3/uL (2.02-8.40); SEGMENTED NEUTROPHIL (0) 88 %; TOTAL NUCLEATED CELLS 100
[2016-12-30 17:32] LABS: PLATELET ESTIMATE DEC (ADEQUATE); POLYCHROMASIA 1+ (2-5/OIF) (0-1/OIF)
[2016-12-30 23:20] LABS: HEMATOCRIT 26.5 % (40.0-51.0); MEAN CORPUSCULAR HEMOGLOB 30.4 pg (26.0-34.0); MEAN CORPUSCULAR VOLUME 89.5 fL (80-100); MEAN PLATELET VOLUME 10.7 fL (9.2-13.0); NUCLEATED RED BLOOD CELLS 0.1 /100WBC (0-0); PLATELET COUNT 120 10/3/uL (150-400); RBC DISTRIBUTION WIDTH 16.3 % (12.0-16.0); RED CELL COUNT 2.96 10/6/uL (4.7-6.1); WHITE BLOOD CELLS 24.3 10/3/uL (4.5-10.5)
[2016-12-30 23:23] LABS: MANUAL DIFF YES %
[2016-12-30 23:38] LABS: BAND NEUTROPHILS 4 %; EOSINOPHILS 1 %; EOSINOPHILS ABSOLUTE (CALC) 0.24 10/3/uL (0.0-0.53); LYMPHOCYTES 5 %; LYMPHOCYTES ABSOLUTE (CALC) 1.22 10/3/uL (0.67-4.30); METAMYELOCYTES 6 %; MONOCYTES 5 %; MONOCYTES ABSOLUTE (CALC) 1.22 10/3/uL (0.21-1.20); MYELOCYTES 1 %; NEUTROPHILS ABSOLUTE (CALC) 19.93 10/3/uL (2.02-8.40); PLATELET ESTIMATE SLT DEC (ADEQUATE); RBC MORPHOLOGY NORM (NORMAL); SEGMENTED NEUTROPHIL (0) 78 %; TOTAL NUCLEATED CELLS 100
[2016-12-30 23:53] LABS: BUN (BLOOD UREA NITROGEN) 28 MG/DL (6-23); CALCIUM, SERUM 7.8 MG/DL (8.5-10.4); CHLORIDE, SERUM 98 MMOL/L (96-112); CO2 (CARBON DIOXIDE) 30 MMOL/L (24-34); CREATININE 1.34 MG/DL (0.70-1.30); GFR AFRICAN AMERICAN 60 ML/MIN (>=60); GFR NON AFRICAN AMERICAN 51 ML/MIN (>=60); GLUCOSE, SERUM 110 MG/DL (60-99); POTASSIUM, SERUM 3.8 MMOL/L (3.5-5.3); SODIUM, SERUM 139 MMOL/L (135-148)
[2016-12-31 03:47] LABS: BE (BASE EXCESS) 9.3 MEQ/L (0 +/- 2.5); CARBOXYHEMOGLOBIN 0.5 % (0-3); HCO3 (ACTUAL BICARBONATE) 33.5 MEQ/L (23-27); HEMOBLOGIN CONTENT 9.1 G/DL (14-18); INSTRUMENT SERIAL # 8083; MODE CMV; O2 CONTENT 12.4 VOL% (18-24); OPERATOR ID 13861; PCO2 (CO2 TENSION) 44 MMHG (35-45); PO2 (O2 TENSION) 85 MMHG (79-93); SAMPLE Arterial; TIDAL VOLUME 500 ML
[2016-12-31 04:14] LABS: HEMATOCRIT 25.9 % (40.0-51.0); HEMOGLOBIN 8.7 g/dL (13.6-17.8); MEAN CORPUS HGB CONC 33.6 g/dL (32.0-36.0); MEAN CORPUSCULAR HEMOGLOB 30.3 pg (26.0-34.0); MEAN CORPUSCULAR VOLUME 90.2 fL (80-100); MEAN PLATELET VOLUME 11.2 fL (9.2-13.0); PLATELET COUNT 123 10/3/uL (150-400); RBC DISTRIBUTION WIDTH 16.1 % (12.0-16.0); RED CELL COUNT 2.87 10/6/uL (4.7-6.1); WHITE BLOOD CELLS 21.9 10/3/uL (4.5-10.5)
[2016-12-31 04:15] LABS: MANUAL DIFF YES %
[2016-12-31 04:33] LABS: BAND NEUTROPHILS 5 %; IMMATURE GRANS ABSOLUTE (CALC) 0.22 10/3/uL (0.0-0.11); METAMYELOCYTES 1 %; MONOCYTES 7 %; MONOCYTES ABSOLUTE (CALC) 1.53 10/3/uL (0.21-1.20); NEUTROPHILS ABSOLUTE (CALC) 20.15 10/3/uL (2.02-8.40); PLATELET ESTIMATE SLT DEC (ADEQUATE); RBC MORPHOLOGY NORM (NORMAL); SEGMENTED NEUTROPHIL (0) 87 %; TOTAL NUCLEATED CELLS 100
[2016-12-31 04:36] LABS: BUN (BLOOD UREA NITROGEN) 31 MG/DL (6-23); CALCIUM, SERUM 7.8 MG/DL (8.5-10.4); CHLORIDE, SERUM 98 MMOL/L (96-112); CO2 (CARBON DIOXIDE) 32 MMOL/L (24-34); CREATININE 1.34 MG/DL (0.70-1.30); GFR AFRICAN AMERICAN 60 ML/MIN (>=60); GFR NON AFRICAN AMERICAN 51 ML/MIN (>=60); GLUCOSE, SERUM 123 MG/DL (60-99); PHOSPHORUS, SERUM 2.2 MG/DL (2.5-4.5); POTASSIUM, SERUM 3.8 MMOL/L (3.5-5.3); SODIUM, SERUM 138 MMOL/L (135-148)
[2016-12-31 10:13] LABS: HEMOGLOBIN 8.6 g/dL (13.6-17.8); MEAN CORPUS HGB CONC 33.1 g/dL (32.0-36.0); MEAN CORPUSCULAR VOLUME 90.6 fL (80-100); PLATELET COUNT 114 10/3/uL (150-400); RBC DISTRIBUTION WIDTH 16.4 % (12.0-16.0); RED CELL COUNT 2.87 10/6/uL (4.7-6.1); WHITE BLOOD CELLS 22.5 10/3/uL (4.5-10.5)
[2016-12-31 10:15] LABS: MANUAL DIFF YES %
[2016-12-31 10:23] LABS: BUN (BLOOD UREA NITROGEN) 30 MG/DL (6-23); CALCIUM, SERUM 7.6 MG/DL (8.5-10.4); CHLORIDE, SERUM 96 MMOL/L (96-112); CO2 (CARBON DIOXIDE) 31 MMOL/L (24-34); CREATININE 1.21 MG/DL (0.70-1.30); GFR AFRICAN AMERICAN 67 ML/MIN (>=60); GFR NON AFRICAN AMERICAN 58 ML/MIN (>=60); GLUCOSE, SERUM 111 MG/DL (60-99); POTASSIUM, SERUM 4.1 MMOL/L (3.5-5.3); SODIUM, SERUM 136 MMOL/L (135-148)
[2016-12-31 10:57] LABS: BAND NEUTROPHILS 6 %; IMMATURE GRANS ABSOLUTE (CALC) 2.25 10/3/uL (0.0-0.11); LYMPHOCYTES 7 %; LYMPHOCYTES ABSOLUTE (CALC) 1.58 10/3/uL (0.67-4.30); METAMYELOCYTES 5 %; MONOCYTES 7 %; MONOCYTES ABSOLUTE (CALC) 1.58 10/3/uL (0.21-1.20); MYELOCYTES 5 %; NUCLEATED RED BLOOD CELLS 1 /100WBC (0); PLATELET ESTIMATE SLT DEC (ADEQUATE); SEGMENTED NEUTROPHIL (0) 70 %; TOTAL NUCLEATED CELLS 100
[2016-12-31 10:58] LABS: RBC MORPHOLOGY NORM (NORMAL)
[2016-12-31 11:14] LABS: PHOSPHORUS, SERUM 2.4 MG/DL (2.5-4.5)
[2016-12-31 12:23] LABS: TRIGLYCERIDE 167 MG/DL (< 150)
[2016-12-31 12:24] LABS: ALBUMIN 1.7 G/DL (3.5-5.0); CHOL/HDL RATIO(NOT ORDER) 6.7 (0-5); CHOLESTEROL 87 MG/DL (< 200); HDL CHOLESTEROL 13 MG/DL (> 39); LDL CHOLESTEROL 41 MG/DL (< 130); NON-HDL CHOLESTEROL 74 MG/DL (< 160)
[2016-12-31 16:44] LABS: HEMATOCRIT 24.9 % (40.0-51.0); HEMOGLOBIN 8.3 g/dL (13.6-17.8); MEAN CORPUS HGB CONC 33.3 g/dL (32.0-36.0); MEAN CORPUSCULAR HEMOGLOB 30.1 pg (26.0-34.0); MEAN CORPUSCULAR VOLUME 90.2 fL (80-100); MEAN PLATELET VOLUME 11.1 fL (9.2-13.0); PLATELET COUNT 118 10/3/uL (150-400); RBC DISTRIBUTION WIDTH 16.5 % (12.0-16.0); RED CELL COUNT 2.76 10/6/uL (4.7-6.1); WHITE BLOOD CELLS 21.7 10/3/uL (4.5-10.5)
[2016-12-31 16:45] LABS: MANUAL DIFF YES %
[2016-12-31 16:58] LABS: BUN (BLOOD UREA NITROGEN) 30 MG/DL (6-23); CALCIUM, SERUM 7.7 MG/DL (8.5-10.4); CHLORIDE, SERUM 98 MMOL/L (96-112); CO2 (CARBON DIOXIDE) 31 MMOL/L (24-34); CREATININE 1.09 MG/DL (0.70-1.30); GFR AFRICAN AMERICAN 77 ML/MIN (>=60); GFR NON AFRICAN AMERICAN 66 ML/MIN (>=60); GLUCOSE, SERUM 118 MG/DL (60-99); PHOSPHORUS, SERUM 2.2 MG/DL (2.5-4.5); POTASSIUM, SERUM 3.8 MMOL/L (3.5-5.3); SODIUM, SERUM 138 MMOL/L (135-148)
[2016-12-31 17:02] LABS: ANISOCYTOSIS 1+ (5-10/OIF) (0-5/OIF); BAND NEUTROPHILS 4 %; EOSINOPHILS 1 %; EOSINOPHILS ABSOLUTE (CALC) 0.22 10/3/uL (0.0-0.53); IMMATURE GRANS ABSOLUTE (CALC) 0.65 10/3/uL (0.0-0.11); LYMPHOCYTES 3 %; LYMPHOCYTES ABSOLUTE (CALC) 0.65 10/3/uL (0.67-4.30); METAMYELOCYTES 1 %; MONOCYTES 6 %; MYELOCYTES 2 %; NEUTROPHILS ABSOLUTE (CALC) 18.88 10/3/uL (2.02-8.40); PLATELET ESTIMATE SLT DEC (ADEQUATE); SEGMENTED NEUTROPHIL (0) 83 %; TOTAL NUCLEATED CELLS 100
[2016-12-31 17:03] LABS: HYPOCHROMIA 1+ (3-10/OIF) (0-2/OIF); TOXIC GRANULATION SLT
[2016-12-31 22:20] LABS: HEMATOCRIT 24.6 % (40.0-51.0); HEMOGLOBIN 8.3 g/dL (13.6-17.8); MEAN CORPUS HGB CONC 33.7 g/dL (32.0-36.0); MEAN CORPUSCULAR HEMOGLOB 30.4 pg (26.0-34.0); MEAN CORPUSCULAR VOLUME 90.1 fL (80-100); MEAN PLATELET VOLUME 10.9 fL (9.2-13.0); PLATELET COUNT 115 10/3/uL (150-400); RBC DISTRIBUTION WIDTH 16.4 % (12.0-16.0); RED CELL COUNT 2.73 10/6/uL (4.7-6.1); WHITE BLOOD CELLS 23.9 10/3/uL (4.5-10.5)
[2016-12-31 22:22] LABS: MANUAL DIFF YES %
[2016-12-31 22:31] LABS: BUN (BLOOD UREA NITROGEN) 30 MG/DL (6-23); CHLORIDE, SERUM 99 MMOL/L (96-112); CO2 (CARBON DIOXIDE) 30 MMOL/L (24-34); CREATININE 1.07 MG/DL (0.70-1.30); GFR AFRICAN AMERICAN 78 ML/MIN (>=60); GFR NON AFRICAN AMERICAN 68 ML/MIN (>=60); GLUCOSE, SERUM 98 MG/DL (60-99); SODIUM, SERUM 139 MMOL/L (135-148)
[2016-12-31 22:38] LABS: ANISOCYTOSIS 1+ (5-10/OIF) (0-5/OIF); BASOPHILS 1 %; BASOPHILS ABSOLUTE (CALC) 0.24 10/3/uL (0.0-0.16); EOSINOPHILS 3 %; EOSINOPHILS ABSOLUTE (CALC) 0.72 10/3/uL (0.0-0.53); HYPOCHROMIA 1+ (3-10/OIF) (0-2/OIF); IMMATURE GRANS ABSOLUTE (CALC) 1.43 10/3/uL (0.0-0.11); LYMPHOCYTES 4 %; LYMPHOCYTES ABSOLUTE (CALC) 0.96 10/3/uL (0.67-4.30); METAMYELOCYTES 2 %; MONOCYTES 3 %; MONOCYTES ABSOLUTE (CALC) 0.72 10/3/uL (0.21-1.20); MYELOCYTES 4 %; NEUTROPHILS ABSOLUTE (CALC) 19.84 10/3/uL (2.02-8.40); PLATELET ESTIMATE SLT DEC (ADEQUATE); POLYCHROMASIA 1+ (2-5/OIF) (0-1/OIF); SEGMENTED NEUTROPHIL (0) 83 %; TOTAL NUCLEATED CELLS 100
[2017-01-01 03:07] LABS: BE (BASE EXCESS) 6.3 MEQ/L (0 +/- 2.5); CARBOXYHEMOGLOBIN 0.8 % (0-3); HCO3 (ACTUAL BICARBONATE) 30.6 MEQ/L (23-27); HEMOBLOGIN CONTENT 8.6 G/DL (14-18); INSTRUMENT SERIAL # 8083; METHEMOGLOBIN 0.2 % (0-3); MODE CMV; O2 CONTENT 11.8 VOL% (18-24); OPERATOR ID 31061; PCO2 (CO2 TENSION) 43 MMHG (35-45); PO2 (O2 TENSION) 95 MMHG (79-93); SAMPLE Arterial; TIDAL VOLUME 500 ML; pH 7.47 (7.37-7.43)
[2017-01-01 04:53] LABS: HEMATOCRIT 23.8 % (40.0-51.0); HEMOGLOBIN 7.8 g/dL (13.6-17.8); MEAN CORPUS HGB CONC 32.8 g/dL (32.0-36.0); MEAN CORPUSCULAR HEMOGLOB 29.9 pg (26.0-34.0); MEAN CORPUSCULAR VOLUME 91.2 fL (80-100); MEAN PLATELET VOLUME 11.3 fL (9.2-13.0); PLATELET COUNT 139 10/3/uL (150-400); RBC DISTRIBUTION WIDTH 16.7 % (12.0-16.0); RED CELL COUNT 2.61 10/6/uL (4.7-6.1); WHITE BLOOD CELLS 24.9 10/3/uL (4.5-10.5)
[2017-01-01 04:54] LABS: MANUAL DIFF YES %
[2017-01-01 05:06] LABS: BUN (BLOOD UREA NITROGEN) 29 MG/DL (6-23); CALCIUM, SERUM 7.8 MG/DL (8.5-10.4); CHLORIDE, SERUM 99 MMOL/L (96-112); CO2 (CARBON DIOXIDE) 28 MMOL/L (24-34); GFR AFRICAN AMERICAN 68 ML/MIN (>=60); GFR NON AFRICAN AMERICAN 59 ML/MIN (>=60); GLUCOSE, SERUM 125 MG/DL (60-99); PHOSPHORUS, SERUM 2.2 MG/DL (2.5-4.5); SODIUM, SERUM 137 MMOL/L (135-148)
[2017-01-01 05:37] LABS: ANISOCYTOSIS 1+ (5-10/OIF) (0-5/OIF); BAND NEUTROPHILS 7 %; EOSINOPHILS 4 %; HYPOCHROMIA 1+ (3-10/OIF) (0-2/OIF); IMMATURE GRANS ABSOLUTE (CALC) 0.75 10/3/uL (0.0-0.11); LYMPHOCYTES 2 %; METAMYELOCYTES 3 %; MONOCYTES 4 %; MONOCYTES ABSOLUTE (CALC) 0.25 10/3/uL (0.21-1.20); NEUTROPHILS ABSOLUTE (CALC) 22.41 10/3/uL (2.02-8.40); PLATELET ESTIMATE SLT DEC (ADEQUATE); SEGMENTED NEUTROPHIL (0) 80 %; TOTAL NUCLEATED CELLS 100
[2017-01-01 10:45] LABS: HEMATOCRIT 23.4 % (40.0-51.0); HEMOGLOBIN 7.9 g/dL (13.6-17.8); MEAN CORPUS HGB CONC 33.8 g/dL (32.0-36.0); MEAN CORPUSCULAR HEMOGLOB 30.7 pg (26.0-34.0); MEAN CORPUSCULAR VOLUME 91.1 fL (80-100); MEAN PLATELET VOLUME 11.2 fL (9.2-13.0); NUCLEATED RED BLOOD CELLS 0.2 /100WBC (0-0); PLATELET COUNT 126 10/3/uL (150-400); RBC DISTRIBUTION WIDTH 16.8 % (12.0-16.0); RED CELL COUNT 2.57 10/6/uL (4.7-6.1)
[2017-01-01 10:48] LABS: WHITE BLOOD CELLS 26.5 10/3/uL (4.5-10.5)
[2017-01-01 10:49] LABS: MANUAL DIFF YES %
[2017-01-01 10:51] LABS: BUN (BLOOD UREA NITROGEN) 31 MG/DL (6-23); CALCIUM, SERUM 7.8 MG/DL (8.5-10.4); CHLORIDE, SERUM 100 MMOL/L (96-112); CO2 (CARBON DIOXIDE) 29 MMOL/L (24-34); CREATININE 1.22 MG/DL (0.70-1.30); GFR AFRICAN AMERICAN 67 ML/MIN (>=60); GFR NON AFRICAN AMERICAN 58 ML/MIN (>=60); GLUCOSE, SERUM 123 MG/DL (60-99); POTASSIUM, SERUM 4.1 MMOL/L (3.5-5.3); SODIUM, SERUM 138 MMOL/L (135-148)
[2017-01-01 11:44] LABS: ANISOCYTOSIS 1+ (5-10/OIF) (0-5/OIF); BAND NEUTROPHILS 13 %; EOSINOPHILS 1 %; EOSINOPHILS ABSOLUTE (CALC) 0.27 10/3/uL (0.0-0.53); IMMATURE GRANS ABSOLUTE (CALC) 2.12 10/3/uL (0.0-0.11); LYMPHOCYTES 2 %; LYMPHOCYTES ABSOLUTE (CALC) 0.53 10/3/uL (0.67-4.30); MACROCYTES 1+ (5-10/OIF) (0-5/OIF); METAMYELOCYTES 7 %; MONOCYTES 4 %; MONOCYTES ABSOLUTE (CALC) 1.06 10/3/uL (0.21-1.20); MYELOCYTES 1 %; NEUTROPHILS ABSOLUTE (CALC) 22.53 10/3/uL (2.02-8.40); PLATELET ESTIMATE SLT DEC (ADEQUATE); POLYCHROMASIA 1+ (2-5/OIF) (0-1/OIF); SEGMENTED NEUTROPHIL (0) 72 %; TOTAL NUCLEATED CELLS 100
[2017-01-01 16:31] LABS: BASOPHILS 0.8 %; EOSINOPHILS ABSOLUTE 0.47 10/3/uL (0.0-0.53); HEMATOCRIT 22.5 % (40.0-51.0); HEMOGLOBIN 7.4 g/dL (13.6-17.8); IMMATURE GRANULOCYTES 10.3 %; IMMATURE GRANULOCYTES ABSOLUTE 2.46 10/3/uL (0.0-0.11); LYMPHOCYTES 5.2 %; LYMPHOCYTES ABSOLUTE 1.24 10/3/uL (0.67-4.30); MEAN CORPUS HGB CONC 32.9 g/dL (32.0-36.0); MEAN CORPUSCULAR HEMOGLOB 30.2 pg (26.0-34.0); MEAN CORPUSCULAR VOLUME 91.8 fL (80-100); MEAN PLATELET VOLUME 10.6 fL (9.2-13.0); MONOCYTES ABSOLUTE 2.37 10/3/uL (0.21-1.20); NEUTROPHILS 71.7 %; NEUTROPHILS ABSOLUTE 17.03 10/3/uL (2.02-8.40); NUCLEATED RED BLOOD CELLS 0.1 /100WBC (0-0); PLATELET COUNT 129 10/3/uL (150-400); RBC DISTRIBUTION WIDTH 16.8 % (12.0-16.0); RED CELL COUNT 2.45 10/6/uL (4.7-6.1); WHITE BLOOD CELLS 23.8 10/3/uL (4.5-10.5)
[2017-01-01 16:32] LABS: MANUAL DIFF NO %
[2017-01-01 16:37] LABS: BUN (BLOOD UREA NITROGEN) 32 MG/DL (6-23); CALCIUM, SERUM 7.9 MG/DL (8.5-10.4); CHLORIDE, SERUM 101 MMOL/L (96-112); CO2 (CARBON DIOXIDE) 30 MMOL/L (24-34); CREATININE 1.18 MG/DL (0.70-1.30); GFR AFRICAN AMERICAN 70 ML/MIN (>=60); GFR NON AFRICAN AMERICAN 60 ML/MIN (>=60); GLUCOSE, SERUM 107 MG/DL (60-99); PHOSPHORUS, SERUM 3.7 MG/DL (2.5-4.5); POTASSIUM, SERUM 4.1 MMOL/L (3.5-5.3); SODIUM, SERUM 138 MMOL/L (135-148)
[2017-01-01 16:52] LABS: ANISOCYTOSIS 1+ (5-10/OIF) (0-5/OIF); BAND NEUTROPHILS 6 %; IMMATURE GRANS ABSOLUTE (CALC) 0.95 10/3/uL (0.0-0.11); LYMPHOCYTES 3 %; LYMPHOCYTES ABSOLUTE (CALC) 0.71 10/3/uL (0.67-4.30); METAMYELOCYTES 3 %; MONOCYTES 9 %; MONOCYTES ABSOLUTE (CALC) 2.14 10/3/uL (0.21-1.20); MYELOCYTES 1 %; NEUTROPHILS ABSOLUTE (CALC) 19.99 10/3/uL (2.02-8.40); PLATELET ESTIMATE SLT DEC (ADEQUATE); SEGMENTED NEUTROPHIL (0) 78 %; TOTAL NUCLEATED CELLS 100
[2017-01-01 22:41] LABS: BASOPHILS ABSOLUTE 0.29 10/3/uL (0.0-0.16); EOSINOPHILS 1.4 %; EOSINOPHILS ABSOLUTE 0.42 10/3/uL (0.0-0.53); HEMATOCRIT 22.9 % (40.0-51.0); HEMOGLOBIN 7.7 g/dL (13.6-17.8); IMMATURE GRANULOCYTES 9.9 %; IMMATURE GRANULOCYTES ABSOLUTE 2.89 10/3/uL (0.0-0.11); LYMPHOCYTES 4.2 %; LYMPHOCYTES ABSOLUTE 1.23 10/3/uL (0.67-4.30); MEAN CORPUS HGB CONC 33.6 g/dL (32.0-36.0); MEAN CORPUSCULAR HEMOGLOB 30.8 pg (26.0-34.0); MEAN CORPUSCULAR VOLUME 91.6 fL (80-100); MEAN PLATELET VOLUME 10.8 fL (9.2-13.0); MONOCYTES 8.8 %; MONOCYTES ABSOLUTE 2.56 10/3/uL (0.21-1.20); NEUTROPHILS 74.7 %; NEUTROPHILS ABSOLUTE 21.85 10/3/uL (2.02-8.40); PLATELET COUNT 138 10/3/uL (150-400); RBC DISTRIBUTION WIDTH 16.6 % (12.0-16.0)
[2017-01-01 22:42] LABS: WHITE BLOOD CELLS 29.2 10/3/uL (4.5-10.5)
[2017-01-01 22:43] LABS: MANUAL DIFF NO %
[2017-01-01 22:53] LABS: ALBUMIN 1.5 G/DL (3.5-5.0); ALKALINE PHOSPHATASE 72 U/L (45-117); BUN (BLOOD UREA NITROGEN) 31 MG/DL (6-23); CHLORIDE, SERUM 99 MMOL/L (96-112); CO2 (CARBON DIOXIDE) 29 MMOL/L (24-34); CREATININE 1.09 MG/DL (0.70-1.30); DIRECT BILIRUBIN 0.7 MG/DL (0.0-0.4); GFR AFRICAN AMERICAN 77 ML/MIN (>=60); GFR NON AFRICAN AMERICAN 66 ML/MIN (>=60); GLUCOSE, SERUM 95 MG/DL (60-99); INDIRECT BILIRUBIN(NOT ORDER) 0.4 MG/DL (0.1-0.9); POTASSIUM, SERUM 4.3 MMOL/L (3.5-5.3); SGOT(AST) 38 U/L (5-40); SGPT(ALT) 17 U/L (5-65); SODIUM, SERUM 138 MMOL/L (135-148); TOTAL BILIRUBIN 1.1 MG/DL (0-1.2); TOTAL PROTEIN 6.1 G/DL (6.0-8.5)
[2017-01-01 22:58] LABS: ANISOCYTOSIS 1+ (5-10/OIF) (0-5/OIF); BAND NEUTROPHILS 5 %; BASOPHILS 1 %; BASOPHILS ABSOLUTE (CALC) 0.29 10/3/uL (0.0-0.16); EOSINOPHILS 2 %; EOSINOPHILS ABSOLUTE (CALC) 0.58 10/3/uL (0.0-0.53); IMMATURE GRANS ABSOLUTE (CALC) 0.88 10/3/uL (0.0-0.11); LYMPHOCYTES 4 %; LYMPHOCYTES ABSOLUTE (CALC) 1.17 10/3/uL (0.67-4.30); METAMYELOCYTES 2 %; MONOCYTES 3 %; MONOCYTES ABSOLUTE (CALC) 0.88 10/3/uL (0.21-1.20); MYELOCYTES 1 %; PLATELET ESTIMATE SLT DEC (ADEQUATE); SEGMENTED NEUTROPHIL (0) 82 %; TOTAL NUCLEATED CELLS 100
[2017-01-01 22:59] LABS: MACROCYTES 1+ (5-10/OIF) (0-5/OIF)
[2017-01-01 23:00] LABS: TEARDROP SHAPED RBCS OCC (0-2/OIF)
[2017-01-02 03:53] LABS: HEMATOCRIT 21.9 % (40.0-51.0); HEMOGLOBIN 7.4 g/dL (13.6-17.8); MEAN CORPUS HGB CONC 33.8 g/dL (32.0-36.0); MEAN CORPUSCULAR VOLUME 91.6 fL (80-100); MEAN PLATELET VOLUME 10.4 fL (9.2-13.0); PLATELET COUNT 146 10/3/uL (150-400); RBC DISTRIBUTION WIDTH 16.9 % (12.0-16.0); RED CELL COUNT 2.39 10/6/uL (4.7-6.1)
[2017-01-02 03:58] LABS: BE (BASE EXCESS) 7.2 MEQ/L (0 +/- 2.5); CARBOXYHEMOGLOBIN 0.7 % (0-3); HCO3 (ACTUAL BICARBONATE) 32.7 MEQ/L (23-27); INSTRUMENT SERIAL # 8083; PCO2 (CO2 TENSION) 51 MMHG (35-45); PO2 (O2 TENSION) 100 MMHG (79-93); pH 7.42 (7.37-7.43)
[2017-01-02 03:59] LABS: HEMOBLOGIN CONTENT 10.9 G/DL (14-18); MODE CMV; OPERATOR ID 14661; SAMPLE Arterial; TIDAL VOLUME 500 ML
[2017-01-02 04:04] LABS: BE (BASE EXCESS) 3.4 MEQ/L (0 +/- 2.5); CARBOXYHEMOGLOBIN 1.9 % (0-3); HCO3 (ACTUAL BICARBONATE) 27.2 MEQ/L (23-27); HEMOBLOGIN CONTENT 6.6 G/DL (14-18); INSTRUMENT SERIAL # 8083; METHEMOGLOBIN 0.5 % (0-3); MODE CMV; O2 CONTENT 8.9 VOL% (18-24); OPERATOR ID 14661; PCO2 (CO2 TENSION) 37 MMHG (35-45); PO2 (O2 TENSION) 81 MMHG (79-93); SAMPLE Arterial; TIDAL VOLUME 500 ML; pH 7.48 (7.37-7.43)
[2017-01-02 04:05] LABS: BUN (BLOOD UREA NITROGEN) 32 MG/DL (6-23); CALCIUM, SERUM 7.8 MG/DL (8.5-10.4); CHLORIDE, SERUM 100 MMOL/L (96-112); CO2 (CARBON DIOXIDE) 26 MMOL/L (24-34); GFR AFRICAN AMERICAN 76 ML/MIN (>=60); GFR NON AFRICAN AMERICAN 65 ML/MIN (>=60); GLUCOSE, SERUM 103 MG/DL (60-99); PHOSPHORUS, SERUM 3.2 MG/DL (2.5-4.5); POTASSIUM, SERUM 4.1 MMOL/L (3.5-5.3); SODIUM, SERUM 138 MMOL/L (135-148)
[2017-01-02 04:19] LABS: MANUAL DIFF YES %; WHITE BLOOD CELLS 28.3 10/3/uL (4.5-10.5)
[2017-01-02 07:07] LABS: BAND NEUTROPHILS 6 %; EOSINOPHILS 1 %; EOSINOPHILS ABSOLUTE (CALC) 0.28 10/3/uL (0.0-0.53); IMMATURE GRANS ABSOLUTE (CALC) 1.98 10/3/uL (0.0-0.11); LYMPHOCYTES 5 %; LYMPHOCYTES ABSOLUTE (CALC) 1.42 10/3/uL (0.67-4.30); METAMYELOCYTES 6 %; MONOCYTES 8 %; MONOCYTES ABSOLUTE (CALC) 2.26 10/3/uL (0.21-1.20); MYELOCYTES 1 %; NEUTROPHILS ABSOLUTE (CALC) 22.36 10/3/uL (2.02-8.40); PLATELET ESTIMATE SLT DEC (ADEQUATE); SEGMENTED NEUTROPHIL (0) 73 %; TOTAL NUCLEATED CELLS 100
[2017-01-02 07:08] LABS: ANISOCYTOSIS 1+ (5-10/OIF) (0-5/OIF); MACROCYTES 1+ (5-10/OIF) (0-5/OIF)
[2017-01-02 10:37] LABS: MEAN CORPUS HGB CONC 34.2 g/dL (32.0-36.0); MEAN CORPUSCULAR HEMOGLOB 30.9 pg (26.0-34.0); MEAN CORPUSCULAR VOLUME 90.3 fL (80-100); MEAN PLATELET VOLUME 10.5 fL (9.2-13.0); NUCLEATED RED BLOOD CELLS 0.2 /100WBC (0-0); PLATELET COUNT 141 10/3/uL (150-400); RBC DISTRIBUTION WIDTH 16.9 % (12.0-16.0); RED CELL COUNT 2.17 10/6/uL (4.7-6.1)
[2017-01-02 10:39] LABS: HEMATOCRIT 19.6 % (40.0-51.0); HEMOGLOBIN 6.7 g/dL (13.6-17.8)
[2017-01-02 10:41] LABS: MANUAL DIFF YES %
[2017-01-02 10:43] LABS: BUN (BLOOD UREA NITROGEN) 35 MG/DL (6-23); CHLORIDE, SERUM 99 MMOL/L (96-112); CO2 (CARBON DIOXIDE) 28 MMOL/L (24-34); CREATININE 1.19 MG/DL (0.70-1.30); GFR AFRICAN AMERICAN 69 ML/MIN (>=60); GFR NON AFRICAN AMERICAN 59 ML/MIN (>=60); GLUCOSE, SERUM 109 MG/DL (60-99); POTASSIUM, SERUM 4.1 MMOL/L (3.5-5.3); SODIUM, SERUM 138 MMOL/L (135-148)
[2017-01-02 11:16] LABS: BAND NEUTROPHILS 3 %; EOSINOPHILS 2 %; EOSINOPHILS ABSOLUTE (CALC) 0.54 10/3/uL (0.0-0.53); IMMATURE GRANS ABSOLUTE (CALC) 0.54 10/3/uL (0.0-0.11); LYMPHOCYTES 4 %; LYMPHOCYTES ABSOLUTE (CALC) 1.08 10/3/uL (0.67-4.30); METAMYELOCYTES 1 %; MONOCYTES 9 %; MONOCYTES ABSOLUTE (CALC) 2.43 10/3/uL (0.21-1.20); MYELOCYTES 1 %; NEUTROPHILS ABSOLUTE (CALC) 22.41 10/3/uL (2.02-8.40); PLATELET ESTIMATE SLT DEC (ADEQUATE); SEGMENTED NEUTROPHIL (0) 80 %; TOTAL NUCLEATED CELLS 100
[2017-01-02 11:17] LABS: POLYCHROMASIA 1+ (2-5/OIF) (0-1/OIF); TOXIC GRANULATION 1+
[2017-01-02 16:10] LABS: HEMATOCRIT 22.9 % (40.0-51.0); HEMOGLOBIN 7.8 g/dL (13.6-17.8); MEAN CORPUS HGB CONC 34.1 g/dL (32.0-36.0); MEAN CORPUSCULAR HEMOGLOB 30.5 pg (26.0-34.0); MEAN CORPUSCULAR VOLUME 89.5 fL (80-100); MEAN PLATELET VOLUME 10.7 fL (9.2-13.0); PLATELET COUNT 141 10/3/uL (150-400); RBC DISTRIBUTION WIDTH 16.8 % (12.0-16.0); RED CELL COUNT 2.56 10/6/uL (4.7-6.1); WHITE BLOOD CELLS 26.5 10/3/uL (4.5-10.5)
[2017-01-02 16:11] LABS: MANUAL DIFF YES %
[2017-01-02 16:22] LABS: BUN (BLOOD UREA NITROGEN) 28 MG/DL (6-23); CALCIUM, SERUM 7.8 MG/DL (8.5-10.4); CHLORIDE, SERUM 100 MMOL/L (96-112); CO2 (CARBON DIOXIDE) 27 MMOL/L (24-34); CREATININE 1.05 MG/DL (0.70-1.30); GFR AFRICAN AMERICAN 80 ML/MIN (>=60); GFR NON AFRICAN AMERICAN 69 ML/MIN (>=60); GLUCOSE, SERUM 99 MG/DL (60-99); SODIUM, SERUM 138 MMOL/L (135-148)
[2017-01-02 17:13] LABS: ANISOCYTOSIS 1+ (5-10/OIF) (0-5/OIF); BAND NEUTROPHILS 5 %; EOSINOPHILS 1 %; EOSINOPHILS ABSOLUTE (CALC) 0.27 10/3/uL (0.0-0.53); IMMATURE GRANS ABSOLUTE (CALC) 1.33 10/3/uL (0.0-0.11); LYMPHOCYTES 1 %; LYMPHOCYTES ABSOLUTE (CALC) 0.27 10/3/uL (0.67-4.30); MACROCYTES 1+ (5-10/OIF) (0-5/OIF); METAMYELOCYTES 4 %; MONOCYTES 7 %; MONOCYTES ABSOLUTE (CALC) 1.86 10/3/uL (0.21-1.20); MYELOCYTES 1 %; NEUTROPHILS ABSOLUTE (CALC) 22.79 10/3/uL (2.02-8.40); PLATELET ESTIMATE SLT DEC (ADEQUATE); SEGMENTED NEUTROPHIL (0) 81 %; TOTAL NUCLEATED CELLS 100
[2017-01-02 22:16] LABS: MEAN CORPUS HGB CONC 33.6 g/dL (32.0-36.0); MEAN CORPUSCULAR HEMOGLOB 29.9 pg (26.0-34.0); MEAN PLATELET VOLUME 10.8 fL (9.2-13.0); PLATELET COUNT 140 10/3/uL (150-400); RED CELL COUNT 3.01 10/6/uL (4.7-6.1)
[2017-01-02 22:17] LABS: HEMATOCRIT 26.8 % (40.0-51.0); MANUAL DIFF YES %; WHITE BLOOD CELLS 32.2 10/3/uL (4.5-10.5)
[2017-01-02 22:23] LABS: BUN (BLOOD UREA NITROGEN) 26 MG/DL (6-23); CALCIUM, SERUM 8.2 MG/DL (8.5-10.4); CHLORIDE, SERUM 101 MMOL/L (96-112); CO2 (CARBON DIOXIDE) 29 MMOL/L (24-34); CREATININE 1.16 MG/DL (0.70-1.30); GFR AFRICAN AMERICAN 71 ML/MIN (>=60); GFR NON AFRICAN AMERICAN 61 ML/MIN (>=60); GLUCOSE, SERUM 91 MG/DL (60-99); SODIUM, SERUM 138 MMOL/L (135-148)
[2017-01-02 22:30] LABS: BAND NEUTROPHILS 6 %; IMMATURE GRANS ABSOLUTE (CALC) 0.97 10/3/uL (0.0-0.11); LYMPHOCYTES 3 %; LYMPHOCYTES ABSOLUTE (CALC) 0.97 10/3/uL (0.67-4.30); METAMYELOCYTES 3 %; MONOCYTES 9 %; NEUTROPHILS ABSOLUTE (CALC) 27.37 10/3/uL (2.02-8.40); SEGMENTED NEUTROPHIL (0) 79 %; TOTAL NUCLEATED CELLS 100; TOXIC GRANULATION SLT
[2017-01-02 22:31] LABS: ANISOCYTOSIS 1+ (5-10/OIF) (0-5/OIF); BASOPHILIC STIPPLING 1+ (2-5/OIF) (0-1/OIF); HYPOCHROMIA 1+ (3-10/OIF) (0-2/OIF)
[2017-01-03 03:52] LABS: HEMATOCRIT 25.4 % (40.0-51.0); HEMOGLOBIN 8.6 g/dL (13.6-17.8); MEAN CORPUS HGB CONC 33.9 g/dL (32.0-36.0); MEAN CORPUSCULAR HEMOGLOB 30.4 pg (26.0-34.0); MEAN CORPUSCULAR VOLUME 89.8 fL (80-100); MEAN PLATELET VOLUME 10.7 fL (9.2-13.0); PLATELET COUNT 135 10/3/uL (150-400); RBC DISTRIBUTION WIDTH 17.3 % (12.0-16.0); RED CELL COUNT 2.83 10/6/uL (4.7-6.1)
[2017-01-03 03:55] LABS: MANUAL DIFF YES %; WHITE BLOOD CELLS 30.6 10/3/uL (4.5-10.5)
[2017-01-03 04:04] LABS: BE (BASE EXCESS) 2.3 MEQ/L (0 +/- 2.5); CARBOXYHEMOGLOBIN 1.1 % (0-3); HCO3 (ACTUAL BICARBONATE) 25.9 MEQ/L (23-27); INSTRUMENT SERIAL # 35151; METHEMOGLOBIN 0.9 % (0-3); O2 CONTENT 9.3 VOL% (18-24); PCO2 (CO2 TENSION) 35 MMHG (35-45); PO2 (O2 TENSION) 76 MMHG (79-93); SAMPLE Arterial; pH 7.48 (7.37-7.43)
[2017-01-03 04:05] LABS: MODE CMV; OPERATOR ID 31061; TIDAL VOLUME 500 ML
[2017-01-03 04:07] LABS: BUN (BLOOD UREA NITROGEN) 27 MG/DL (6-23); CALCIUM, SERUM 7.9 MG/DL (8.5-10.4); CHLORIDE, SERUM 100 MMOL/L (96-112); CO2 (CARBON DIOXIDE) 28 MMOL/L (24-34); CREATININE 1.22 MG/DL (0.70-1.30); GFR AFRICAN AMERICAN 67 ML/MIN (>=60); GFR NON AFRICAN AMERICAN 58 ML/MIN (>=60); SODIUM, SERUM 139 MMOL/L (135-148)
[2017-01-03 04:08] LABS: GLUCOSE, SERUM 114 MG/DL (60-99)
[2017-01-03 04:20] LABS: MONOCYTES 4 %; MONOCYTES ABSOLUTE (CALC) 1.22 10/3/uL (0.21-1.20); NEUTROPHILS ABSOLUTE (CALC) 29.38 10/3/uL (2.02-8.40); SEGMENTED NEUTROPHIL (0) 94 %; TOTAL NUCLEATED CELLS 100
[2017-01-03 04:21] LABS: ANISOCYTOSIS 1+ (5-10/OIF) (0-5/OIF); BAND NEUTROPHILS 1 %; LYMPHOCYTES 1 %; PLATELET ESTIMATE ADQ (ADEQUATE)
[2017-01-03 11:06] LABS: HEMATOCRIT 24.5 % (40.0-51.0); HEMOGLOBIN 8.2 g/dL (13.6-17.8); MANUAL DIFF YES %; MEAN CORPUS HGB CONC 33.5 g/dL (32.0-36.0); MEAN CORPUSCULAR HEMOGLOB 30.3 pg (26.0-34.0); MEAN CORPUSCULAR VOLUME 90.4 fL (80-100); MEAN PLATELET VOLUME 10.5 fL (9.2-13.0); PLATELET COUNT 142 10/3/uL (150-400); RBC DISTRIBUTION WIDTH 17.6 % (12.0-16.0); RED CELL COUNT 2.71 10/6/uL (4.7-6.1); WHITE BLOOD CELLS 23.9 10/3/uL (4.5-10.5)
[2017-01-03 11:12] LABS: BUN (BLOOD UREA NITROGEN) 28 MG/DL (6-23); CALCIUM, SERUM 7.7 MG/DL (8.5-10.4); CHLORIDE, SERUM 101 MMOL/L (96-112); CO2 (CARBON DIOXIDE) 31 MMOL/L (24-34); GFR AFRICAN AMERICAN 68 ML/MIN (>=60); GFR NON AFRICAN AMERICAN 59 ML/MIN (>=60); GLUCOSE, SERUM 113 MG/DL (60-99); SODIUM, SERUM 140 MMOL/L (135-148); VANCOMYCIN TROUGH 20.3 MCG/ML (10.0-20.0)
[2017-01-03 11:21] LABS: ANISOCYTOSIS 1+ (5-10/OIF) (0-5/OIF); BAND NEUTROPHILS 8 %; IMMATURE GRANS ABSOLUTE (CALC) 0.48 10/3/uL (0.0-0.11); LYMPHOCYTES 10 %; LYMPHOCYTES ABSOLUTE (CALC) 2.39 10/3/uL (0.67-4.30); METAMYELOCYTES 2 %; MONOCYTES 10 %; MONOCYTES ABSOLUTE (CALC) 2.39 10/3/uL (0.21-1.20); NEUTROPHILS ABSOLUTE (CALC) 18.64 10/3/uL (2.02-8.40); PLATELET ESTIMATE SLT DEC (ADEQUATE); SEGMENTED NEUTROPHIL (0) 70 %; TOTAL NUCLEATED CELLS 100
[2017-01-03 16:59] LABS: HEMATOCRIT 25.1 % (40.0-51.0); HEMOGLOBIN 8.4 g/dL (13.6-17.8); MEAN CORPUS HGB CONC 33.5 g/dL (32.0-36.0); MEAN CORPUSCULAR HEMOGLOB 30.4 pg (26.0-34.0); MEAN CORPUSCULAR VOLUME 90.9 fL (80-100); MEAN PLATELET VOLUME 10.8 fL (9.2-13.0); PLATELET COUNT 147 10/3/uL (150-400); RBC DISTRIBUTION WIDTH 17.8 % (12.0-16.0); RED CELL COUNT 2.76 10/6/uL (4.7-6.1)
[2017-01-03 17:04] LABS: WHITE BLOOD CELLS 28.6 10/3/uL (4.5-10.5)
[2017-01-03 17:05] LABS: MANUAL DIFF YES %
[2017-01-03 17:11] LABS: BUN (BLOOD UREA NITROGEN) 29 MG/DL (6-23); CALCIUM, SERUM 7.8 MG/DL (8.5-10.4); CHLORIDE, SERUM 101 MMOL/L (96-112); CO2 (CARBON DIOXIDE) 30 MMOL/L (24-34); CREATININE 1.18 MG/DL (0.70-1.30); GFR AFRICAN AMERICAN 70 ML/MIN (>=60); GFR NON AFRICAN AMERICAN 60 ML/MIN (>=60); GLUCOSE, SERUM 105 MG/DL (60-99); PHOSPHORUS, SERUM 3.8 MG/DL (2.5-4.5); POTASSIUM, SERUM 4.1 MMOL/L (3.5-5.3); SODIUM, SERUM 138 MMOL/L (135-148)
[2017-01-03 17:22] LABS: ANISOCYTOSIS 1+ (5-10/OIF) (0-5/OIF); BAND NEUTROPHILS 4 %; IMMATURE GRANS ABSOLUTE (CALC) 1.72 10/3/uL (0.0-0.11); MACROCYTES 1+ (5-10/OIF) (0-5/OIF); METAMYELOCYTES 3 %; MONOCYTES 5 %; MONOCYTES ABSOLUTE (CALC) 1.43 10/3/uL (0.21-1.20); MYELOCYTES 3 %; NEUTROPHILS ABSOLUTE (CALC) 25.45 10/3/uL (2.02-8.40); PLATELET ESTIMATE SLT DEC (ADEQUATE); POLYCHROMASIA 1+ (2-5/OIF) (0-1/OIF); SEGMENTED NEUTROPHIL (0) 85 %; TOTAL NUCLEATED CELLS 100; TOXIC GRANULATION SLT
[2017-01-03 17:23] LABS: REACTIVE LYMPHS OCC (0-2%) (0-5%)
[2017-01-03 22:47] LABS: HEMATOCRIT 24.5 % (40.0-51.0); HEMOGLOBIN 8.2 g/dL (13.6-17.8); MEAN CORPUS HGB CONC 33.5 g/dL (32.0-36.0); MEAN CORPUSCULAR HEMOGLOB 30.1 pg (26.0-34.0); MEAN CORPUSCULAR VOLUME 90.1 fL (80-100); MEAN PLATELET VOLUME 11.1 fL (9.2-13.0); PLATELET COUNT 146 10/3/uL (150-400); RBC DISTRIBUTION WIDTH 17.9 % (12.0-16.0); RED CELL COUNT 2.72 10/6/uL (4.7-6.1)
[2017-01-03 22:49] LABS: WHITE BLOOD CELLS 26.4 10/3/uL (4.5-10.5)
[2017-01-03 22:50] LABS: MANUAL DIFF YES %
[2017-01-03 22:58] LABS: BUN (BLOOD UREA NITROGEN) 30 MG/DL (6-23); CALCIUM, SERUM 8.2 MG/DL (8.5-10.4); CHLORIDE, SERUM 99 MMOL/L (96-112); CO2 (CARBON DIOXIDE) 28 MMOL/L (24-34); CREATININE 1.03 MG/DL (0.70-1.30); GFR AFRICAN AMERICAN 82 ML/MIN (>=60); GFR NON AFRICAN AMERICAN 71 ML/MIN (>=60); GLUCOSE, SERUM 104 MG/DL (60-99); POTASSIUM, SERUM 3.9 MMOL/L (3.5-5.3); SODIUM, SERUM 138 MMOL/L (135-148)
[2017-01-03 23:10] LABS: BAND NEUTROPHILS 6 %; EOSINOPHILS 2 %; EOSINOPHILS ABSOLUTE (CALC) 0.53 10/3/uL (0.0-0.53); IMMATURE GRANS ABSOLUTE (CALC) 1.06 10/3/uL (0.0-0.11); LYMPHOCYTES 2 %; LYMPHOCYTES ABSOLUTE (CALC) 0.53 10/3/uL (0.67-4.30); METAMYELOCYTES 3 %; MONOCYTES 3 %; MONOCYTES ABSOLUTE (CALC) 0.79 10/3/uL (0.21-1.20); MYELOCYTES 1 %; SEGMENTED NEUTROPHIL (0) 83 %; TOTAL NUCLEATED CELLS 100; TOXIC GRANULATION 1+
[2017-01-03 23:11] LABS: ANISOCYTOSIS 1+ (5-10/OIF) (0-5/OIF); MACROCYTES 1+ (5-10/OIF) (0-5/OIF); PLATELET ESTIMATE SLT DEC (ADEQUATE)
[2017-01-04 03:58] LABS: HEMATOCRIT 22.3 % (40.0-51.0); HEMOGLOBIN 7.5 g/dL (13.6-17.8); MEAN CORPUS HGB CONC 33.6 g/dL (32.0-36.0); MEAN CORPUSCULAR HEMOGLOB 30.6 pg (26.0-34.0); MEAN PLATELET VOLUME 10.9 fL (9.2-13.0); PLATELET COUNT 134 10/3/uL (150-400); RBC DISTRIBUTION WIDTH 17.7 % (12.0-16.0); RED CELL COUNT 2.45 10/6/uL (4.7-6.1); WHITE BLOOD CELLS 24.1 10/3/uL (4.5-10.5)
[2017-01-04 04:02] LABS: MANUAL DIFF YES %
[2017-01-04 04:07] LABS: BE (BASE EXCESS) 2.6 MEQ/L (0 +/- 2.5); CARBOXYHEMOGLOBIN 1.1 % (0-3); HCO3 (ACTUAL BICARBONATE) 26.3 MEQ/L (23-27); HEMOBLOGIN CONTENT 8.7 G/DL (14-18); INSTRUMENT SERIAL # 8083; METHEMOGLOBIN 0.3 % (0-3); MODE CMV; OPERATOR ID 16503; PCO2 (CO2 TENSION) 37 MMHG (35-45); PO2 (O2 TENSION) 107 MMHG (79-93); SAMPLE Arterial; TIDAL VOLUME 500 ML; pH 7.47 (7.37-7.43)
[2017-01-04 04:13] LABS: A/G RATIO 0.3 (0.7-1.9); ALBUMIN 1.3 G/DL (3.5-5.0); ALKALINE PHOSPHATASE 71 U/L (45-117); BUN (BLOOD UREA NITROGEN) 32 MG/DL (6-23); CHLORIDE, SERUM 99 MMOL/L (96-112); CO2 (CARBON DIOXIDE) 29 MMOL/L (24-34); CREATININE 1.04 MG/DL (0.70-1.30); GFR AFRICAN AMERICAN 81 ML/MIN (>=60); GFR NON AFRICAN AMERICAN 70 ML/MIN (>=60); GLOBULIN 4.4 G/DL (2.5-4.1); GLUCOSE, SERUM 114 MG/DL (60-99); PHOSPHORUS, SERUM 3.6 MG/DL (2.5-4.5); SGOT(AST) 24 U/L (5-40); SGPT(ALT) 13 U/L (5-65); SODIUM, SERUM 138 MMOL/L (135-148); TOTAL PROTEIN 5.7 G/DL (6.0-8.5)
[2017-01-04 04:22] LABS: TOTAL BILIRUBIN 2.1 MG/DL (0-1.2)
[2017-01-04 05:21] LABS: ANISOCYTOSIS 1+ (5-10/OIF) (0-5/OIF); BAND NEUTROPHILS 3 %; IMMATURE GRANS ABSOLUTE (CALC) 0.24 10/3/uL (0.0-0.11); LYMPHOCYTES 2 %; LYMPHOCYTES ABSOLUTE (CALC) 0.48 10/3/uL (0.67-4.30); METAMYELOCYTES 1 %; MONOCYTES 2 %; MONOCYTES ABSOLUTE (CALC) 0.48 10/3/uL (0.21-1.20); PLATELET ESTIMATE SLT DEC (ADEQUATE); SEGMENTED NEUTROPHIL (0) 92 %; TOTAL NUCLEATED CELLS 100
[2017-01-04 10:28] LABS: HEMATOCRIT 21.8 % (40.0-51.0); HEMOGLOBIN 7.3 g/dL (13.6-17.8); MEAN CORPUS HGB CONC 33.5 g/dL (32.0-36.0); MEAN CORPUSCULAR VOLUME 89.7 fL (80-100); MEAN PLATELET VOLUME 11.1 fL (9.2-13.0); PLATELET COUNT 133 10/3/uL (150-400); RBC DISTRIBUTION WIDTH 17.8 % (12.0-16.0); RED CELL COUNT 2.43 10/6/uL (4.7-6.1); WHITE BLOOD CELLS 21.3 10/3/uL (4.5-10.5)
[2017-01-04 10:30] LABS: MANUAL DIFF YES %
[2017-01-04 10:34] LABS: BUN (BLOOD UREA NITROGEN) 31 MG/DL (6-23); CALCIUM, SERUM 7.8 MG/DL (8.5-10.4); CHLORIDE, SERUM 101 MMOL/L (96-112); CO2 (CARBON DIOXIDE) 29 MMOL/L (24-34); CREATININE 1.09 MG/DL (0.70-1.30); GFR AFRICAN AMERICAN 77 ML/MIN (>=60); GFR NON AFRICAN AMERICAN 66 ML/MIN (>=60); GLUCOSE, SERUM 115 MG/DL (60-99); POTASSIUM, SERUM 3.9 MMOL/L (3.5-5.3); SODIUM, SERUM 140 MMOL/L (135-148)
[2017-01-04 11:11] LABS: EOSINOPHILS 3 %; EOSINOPHILS ABSOLUTE (CALC) 0.64 10/3/uL (0.0-0.53); LYMPHOCYTES 4 %; LYMPHOCYTES ABSOLUTE (CALC) 0.85 10/3/uL (0.67-4.30); MONOCYTES 5 %; MONOCYTES ABSOLUTE (CALC) 1.07 10/3/uL (0.21-1.20); NEUTROPHILS ABSOLUTE (CALC) 18.74 10/3/uL (2.02-8.40); SEGMENTED NEUTROPHIL (0) 88 %; TOTAL NUCLEATED CELLS 100
[2017-01-04 11:12] LABS: ANISOCYTOSIS 1+ (5-10/OIF) (0-5/OIF); PLATELET ESTIMATE SLT DEC (ADEQUATE)
[2017-01-04 12:56] LABS: INTERNATIONAL NORMAL RATI 1.2 UNITS (-); PROTIME (NOT ORD) 15.4 SEC (12.0-14.5)
[2017-01-04 15:40] LABS: GLUCOSE BODY FL (NOT ORD) 93 MG/DL; LDH BODY FLUID (NOT ORD) 334 U/L; PROTEIN BODY FLUID 3.2 G/DL
[2017-01-04 15:42] LABS: BODY FLUID CHOLESTEROL < 50 MG/DL
[2017-01-04 16:13] LABS: BF TOTAL CELL CT (NOT ORD 2469 /MM3; BODY FLUID RBC (NOT ORD) 52249 /MM3
[2017-01-04 16:28] LABS: HEMATOCRIT 22.9 % (40.0-51.0); HEMOGLOBIN 7.6 g/dL (13.6-17.8); MEAN CORPUS HGB CONC 33.2 g/dL (32.0-36.0); MEAN CORPUSCULAR HEMOGLOB 30.2 pg (26.0-34.0); MEAN CORPUSCULAR VOLUME 90.9 fL (80-100); MEAN PLATELET VOLUME 11.1 fL (9.2-13.0); PLATELET COUNT 154 10/3/uL (150-400); RBC DISTRIBUTION WIDTH 17.9 % (12.0-16.0); RED CELL COUNT 2.52 10/6/uL (4.7-6.1); WHITE BLOOD CELLS 22.3 10/3/uL (4.5-10.5)
[2017-01-04 16:33] LABS: MANUAL DIFF YES %
[2017-01-04 16:43] LABS: BD FL LYMPH (NOT ORD) 40 %; BD FL SOURCE (NOT ORD) PLEURAL; BF BASO (NOT OF) 0 %; BF LARGE MONONUCLEAR 28 %; BODY FLUID EOS (NOT ORD) 1 %; BODY FLUID SEG (NOT ORD) 31 %
[2017-01-04 16:48] LABS: ANISOCYTOSIS 1+ (5-10/OIF) (0-5/OIF); BAND NEUTROPHILS 5 %; EOSINOPHILS 1 %; EOSINOPHILS ABSOLUTE (CALC) 0.22 10/3/uL (0.0-0.53); IMMATURE GRANS ABSOLUTE (CALC) 0.45 10/3/uL (0.0-0.11); LYMPHOCYTES 3 %; LYMPHOCYTES ABSOLUTE (CALC) 0.67 10/3/uL (0.67-4.30); METAMYELOCYTES 2 %; MONOCYTES 4 %; MONOCYTES ABSOLUTE (CALC) 0.89 10/3/uL (0.21-1.20); NEUTROPHILS ABSOLUTE (CALC) 20.07 10/3/uL (2.02-8.40); PLATELET ESTIMATE ADQ (ADEQUATE); SEGMENTED NEUTROPHIL (0) 85 %; TOTAL NUCLEATED CELLS 100
[2017-01-04 16:49] LABS: POLYCHROMASIA 1+ (2-5/OIF) (0-1/OIF)
[2017-01-04 16:50] LABS: BUN (BLOOD UREA NITROGEN) 31 MG/DL (6-23); CALCIUM, SERUM 7.7 MG/DL (8.5-10.4); CHLORIDE, SERUM 99 MMOL/L (96-112); CO2 (CARBON DIOXIDE) 29 MMOL/L (24-34); CREATININE 0.99 MG/DL (0.70-1.30); GFR AFRICAN AMERICAN 86 ML/MIN (>=60); GFR NON AFRICAN AMERICAN 74 ML/MIN (>=60); GLUCOSE, SERUM 114 MG/DL (60-99); PHOSPHORUS, SERUM 3.5 MG/DL (2.5-4.5); SODIUM, SERUM 138 MMOL/L (135-148)
[2017-01-04 21:34] LABS: HEMATOCRIT 22.5 % (40.0-51.0); HEMOGLOBIN 7.5 g/dL (13.6-17.8); MEAN CORPUS HGB CONC 33.3 g/dL (32.0-36.0); MEAN CORPUSCULAR HEMOGLOB 30.4 pg (26.0-34.0); MEAN CORPUSCULAR VOLUME 91.1 fL (80-100); MEAN PLATELET VOLUME 10.9 fL (9.2-13.0); PLATELET COUNT 145 10/3/uL (150-400); RBC DISTRIBUTION WIDTH 17.9 % (12.0-16.0); RED CELL COUNT 2.47 10/6/uL (4.7-6.1); WHITE BLOOD CELLS 22.3 10/3/uL (4.5-10.5)
[2017-01-04 21:35] LABS: MANUAL DIFF YES %
[2017-01-04 21:43] LABS: BUN (BLOOD UREA NITROGEN) 33 MG/DL (6-23); CALCIUM, SERUM 7.7 MG/DL (8.5-10.4); CHLORIDE, SERUM 99 MMOL/L (96-112); CO2 (CARBON DIOXIDE) 29 MMOL/L (24-34); CREATININE 0.96 MG/DL (0.70-1.30); GFR AFRICAN AMERICAN 89 ML/MIN (>=60); GFR NON AFRICAN AMERICAN 77 ML/MIN (>=60); GLUCOSE, SERUM 115 MG/DL (60-99); POTASSIUM, SERUM 3.9 MMOL/L (3.5-5.3); SODIUM, SERUM 138 MMOL/L (135-148)
[2017-01-04 22:17] LABS: ANISOCYTOSIS 1+ (5-10/OIF) (0-5/OIF); BAND NEUTROPHILS 5 %; BASOPHILS 2 %; BASOPHILS ABSOLUTE (CALC) 0.45 10/3/uL (0.0-0.16); IMMATURE GRANS ABSOLUTE (CALC) 0.22 10/3/uL (0.0-0.11); LYMPHOCYTES 2 %; LYMPHOCYTES ABSOLUTE (CALC) 0.45 10/3/uL (0.67-4.30); MACROCYTES 1+ (5-10/OIF) (0-5/OIF); METAMYELOCYTES 1 %; MONOCYTES 7 %; MONOCYTES ABSOLUTE (CALC) 1.56 10/3/uL (0.21-1.20); NEUTROPHILS ABSOLUTE (CALC) 19.62 10/3/uL (2.02-8.40); POLYCHROMASIA 1+ (2-5/OIF) (0-1/OIF); SEGMENTED NEUTROPHIL (0) 83 %; TOTAL NUCLEATED CELLS 100; TOXIC GRANULATION 1+
[2017-01-05 03:35] LABS: ALLENS TEST Pos; BE (BASE EXCESS) 0.5 MEQ/L (0 +/- 2.5); CARBOXYHEMOGLOBIN 1.2 % (0-3); HCO3 (ACTUAL BICARBONATE) 24.5 MEQ/L (23-27); HEMOBLOGIN CONTENT 7.1 G/DL (14-18); INSTRUMENT SERIAL # 8083; METHEMOGLOBIN 0.4 % (0-3); MODE CMV; O2 CONTENT 9.7 VOL% (18-24); OPERATOR ID 16503; PCO2 (CO2 TENSION) 36 MMHG (35-45); PO2 (O2 TENSION) 94 MMHG (79-93); SAMPLE Arterial; TIDAL VOLUME 500 ML; pH 7.45 (7.37-7.43)
[2017-01-05 03:42] LABS: MEAN CORPUS HGB CONC 33.5 g/dL (32.0-36.0); MEAN CORPUSCULAR HEMOGLOB 30.4 pg (26.0-34.0); MEAN CORPUSCULAR VOLUME 90.9 fL (80-100); MEAN PLATELET VOLUME 11.3 fL (9.2-13.0); PLATELET COUNT 141 10/3/uL (150-400); RBC DISTRIBUTION WIDTH 17.8 % (12.0-16.0); WHITE BLOOD CELLS 17.8 10/3/uL (4.5-10.5)
[2017-01-05 03:45] LABS: HEMATOCRIT 20.9 % (40.0-51.0)
[2017-01-05 03:46] LABS: MANUAL DIFF YES %
[2017-01-05 03:55] LABS: BUN (BLOOD UREA NITROGEN) 31 MG/DL (6-23); CALCIUM, SERUM 7.8 MG/DL (8.5-10.4); CHLORIDE, SERUM 100 MMOL/L (96-112); CO2 (CARBON DIOXIDE) 30 MMOL/L (24-34); CREATININE 0.84 MG/DL (0.70-1.30); GFR AFRICAN AMERICAN 99 ML/MIN (>=60); GFR NON AFRICAN AMERICAN 86 ML/MIN (>=60); GLUCOSE, SERUM 116 MG/DL (60-99); PHOSPHORUS, SERUM 3.4 MG/DL (2.5-4.5); SODIUM, SERUM 140 MMOL/L (135-148)
[2017-01-05 04:09] LABS: ANISOCYTOSIS 1+ (5-10/OIF) (0-5/OIF); BAND NEUTROPHILS 3 %; EOSINOPHILS 4 %; EOSINOPHILS ABSOLUTE (CALC) 0.71 10/3/uL (0.0-0.53); LYMPHOCYTES 1 %; LYMPHOCYTES ABSOLUTE (CALC) 0.18 10/3/uL (0.67-4.30); MONOCYTES 1 %; MONOCYTES ABSOLUTE (CALC) 0.18 10/3/uL (0.21-1.20); NEUTROPHILS ABSOLUTE (CALC) 16.73 10/3/uL (2.02-8.40); PLATELET ESTIMATE SLT DEC (ADEQUATE); SEGMENTED NEUTROPHIL (0) 91 %; TOTAL NUCLEATED CELLS 100
[2017-01-05 05:51] LABS: PROCALCITONIN 0.56 ng/mL (<0.5)
[2017-01-05 10:23] LABS: HEMATOCRIT 21.6 % (40.0-51.0); HEMOGLOBIN 7.2 g/dL (13.6-17.8); MEAN CORPUS HGB CONC 33.3 g/dL (32.0-36.0); MEAN CORPUSCULAR HEMOGLOB 30.4 pg (26.0-34.0); MEAN CORPUSCULAR VOLUME 91.1 fL (80-100); MEAN PLATELET VOLUME 11.3 fL (9.2-13.0); PLATELET COUNT 113 10/3/uL (150-400); RBC DISTRIBUTION WIDTH 18.1 % (12.0-16.0); RED CELL COUNT 2.37 10/6/uL (4.7-6.1); WHITE BLOOD CELLS 17.3 10/3/uL (4.5-10.5)
[2017-01-05 10:24] LABS: MANUAL DIFF YES %
[2017-01-05 10:36] LABS: BUN (BLOOD UREA NITROGEN) 34 MG/DL (6-23); CALCIUM, SERUM 7.9 MG/DL (8.5-10.4); CHLORIDE, SERUM 99 MMOL/L (96-112); CO2 (CARBON DIOXIDE) 28 MMOL/L (24-34); CREATININE 0.98 MG/DL (0.70-1.30); GFR AFRICAN AMERICAN 87 ML/MIN (>=60); GFR NON AFRICAN AMERICAN 75 ML/MIN (>=60); GLUCOSE, SERUM 113 MG/DL (60-99); POTASSIUM, SERUM 4.1 MMOL/L (3.5-5.3); SODIUM, SERUM 138 MMOL/L (135-148)
[2017-01-05 10:48] LABS: BAND NEUTROPHILS 1 %; BASOPHILS 1 %; BASOPHILS ABSOLUTE (CALC) 0.17 10/3/uL (0.0-0.16); EOSINOPHILS 2 %; EOSINOPHILS ABSOLUTE (CALC) 0.35 10/3/uL (0.0-0.53); LYMPHOCYTES 6 %; LYMPHOCYTES ABSOLUTE (CALC) 1.04 10/3/uL (0.67-4.30); MONOCYTES 9 %; MONOCYTES ABSOLUTE (CALC) 1.56 10/3/uL (0.21-1.20); NEUTROPHILS ABSOLUTE (CALC) 14.19 10/3/uL (2.02-8.40); SEGMENTED NEUTROPHIL (0) 81 %; TOTAL NUCLEATED CELLS 100
[2017-01-05 10:49] LABS: ANISOCYTOSIS 1+ (5-10/OIF) (0-5/OIF); MACROCYTES 1+ (5-10/OIF) (0-5/OIF); PLATELET ESTIMATE SLT DEC (ADEQUATE)
[2017-01-05 12:00] LABS: TRIGLYCERIDE 102 MG/DL (< 150)
[2017-01-05 15:36] LABS: BASOPHILS 0.4 %; BASOPHILS ABSOLUTE 0.06 10/3/uL (0.0-0.16); EOSINOPHILS 1.4 %; EOSINOPHILS ABSOLUTE 0.19 10/3/uL (0.0-0.53); IMMATURE GRANULOCYTES 4.2 %; IMMATURE GRANULOCYTES ABSOLUTE 0.57 10/3/uL (0.0-0.11); LYMPHOCYTES 7.9 %; LYMPHOCYTES ABSOLUTE 1.08 10/3/uL (0.67-4.30); MEAN CORPUS HGB CONC 33.7 g/dL (32.0-36.0); MEAN CORPUSCULAR HEMOGLOB 30.6 pg (26.0-34.0); MEAN CORPUSCULAR VOLUME 90.9 fL (80-100); MEAN PLATELET VOLUME 10.8 fL (9.2-13.0); MONOCYTES 7.5 %; MONOCYTES ABSOLUTE 1.02 10/3/uL (0.21-1.20); NEUTROPHILS 78.6 %; NEUTROPHILS ABSOLUTE 10.77 10/3/uL (2.02-8.40); PLATELET COUNT 134 10/3/uL (150-400); RBC DISTRIBUTION WIDTH 17.6 % (12.0-16.0); RED CELL COUNT 2.09 10/6/uL (4.7-6.1); WHITE BLOOD CELLS 13.7 10/3/uL (4.5-10.5)
[2017-01-05 15:37] LABS: HEMOGLOBIN 6.4 g/dL (13.6-17.8)
[2017-01-05 15:39] LABS: MANUAL DIFF NO %
[2017-01-05 15:47] LABS: BUN (BLOOD UREA NITROGEN) 33 MG/DL (6-23); CALCIUM, SERUM 8.1 MG/DL (8.5-10.4); CHLORIDE, SERUM 99 MMOL/L (96-112); CO2 (CARBON DIOXIDE) 29 MMOL/L (24-34); CREATININE 1.01 MG/DL (0.70-1.30); GFR AFRICAN AMERICAN 84 ML/MIN (>=60); GFR NON AFRICAN AMERICAN 72 ML/MIN (>=60); GLUCOSE, SERUM 108 MG/DL (60-99); PHOSPHORUS, SERUM 3.3 MG/DL (2.5-4.5); POTASSIUM, SERUM 4.2 MMOL/L (3.5-5.3); SODIUM, SERUM 138 MMOL/L (135-148)
[2017-01-05 16:21] LABS: ANISOCYTOSIS 1+ (5-10/OIF) (0-5/OIF); BAND NEUTROPHILS 1 %; BASOPHILS 1 %; BASOPHILS ABSOLUTE (CALC) 0.14 10/3/uL (0.0-0.16); EOSINOPHILS 3 %; EOSINOPHILS ABSOLUTE (CALC) 0.41 10/3/uL (0.0-0.53); IMMATURE GRANS ABSOLUTE (CALC) 0.14 10/3/uL (0.0-0.11); LYMPHOCYTES 7 %; LYMPHOCYTES ABSOLUTE (CALC) 0.96 10/3/uL (0.67-4.30); METAMYELOCYTES 1 %; MONOCYTES 8 %; NEUTROPHILS ABSOLUTE (CALC) 10.96 10/3/uL (2.02-8.40); PLATELET ESTIMATE SLT DEC (ADEQUATE); SEGMENTED NEUTROPHIL (0) 79 %; TOTAL NUCLEATED CELLS 100
[2017-01-05 16:22] LABS: POLYCHROMASIA 1+ (2-5/OIF) (0-1/OIF)
[2017-01-05 21:44] LABS: BASOPHILS 0.6 %; EOSINOPHILS 1.8 %; EOSINOPHILS ABSOLUTE 0.29 10/3/uL (0.0-0.53); IMMATURE GRANULOCYTES 3.6 %; LYMPHOCYTES 6.1 %; MEAN CORPUS HGB CONC 33.6 g/dL (32.0-36.0); MEAN CORPUSCULAR HEMOGLOB 30.2 pg (26.0-34.0); MEAN CORPUSCULAR VOLUME 89.7 fL (80-100); MEAN PLATELET VOLUME 11.3 fL (9.2-13.0); MONOCYTES 10.5 %; MONOCYTES ABSOLUTE 1.73 10/3/uL (0.21-1.20); NEUTROPHILS 77.4 %; NEUTROPHILS ABSOLUTE 12.76 10/3/uL (2.02-8.40); PLATELET COUNT 103 10/3/uL (150-400); RBC DISTRIBUTION WIDTH 16.9 % (12.0-16.0); WHITE BLOOD CELLS 16.5 10/3/uL (4.5-10.5)
[2017-01-05 21:45] LABS: HEMATOCRIT 23.5 % (40.0-51.0); HEMOGLOBIN 7.9 g/dL (13.6-17.8); MANUAL DIFF NO %; RED CELL COUNT 2.62 10/6/uL (4.7-6.1)
[2017-01-05 21:55] LABS: BUN (BLOOD UREA NITROGEN) 35 MG/DL (6-23); CALCIUM, SERUM 8.2 MG/DL (8.5-10.4); CHLORIDE, SERUM 98 MMOL/L (96-112); CO2 (CARBON DIOXIDE) 30 MMOL/L (24-34); CREATININE 1.02 MG/DL (0.70-1.30); GFR AFRICAN AMERICAN 83 ML/MIN (>=60); GFR NON AFRICAN AMERICAN 72 ML/MIN (>=60); GLUCOSE, SERUM 100 MG/DL (60-99); SODIUM, SERUM 138 MMOL/L (135-148)
[2017-01-05 22:15] LABS: BASOPHILS 1 %; BASOPHILS ABSOLUTE (CALC) 0.17 10/3/uL (0.0-0.16); EOSINOPHILS 2 %; EOSINOPHILS ABSOLUTE (CALC) 0.33 10/3/uL (0.0-0.53); IMMATURE GRANS ABSOLUTE (CALC) 0.33 10/3/uL (0.0-0.11); IMMATURE MONONUCLEAR 1 % (0); LYMPHOCYTES 1 %; LYMPHOCYTES ABSOLUTE (CALC) 0.17 10/3/uL (0.67-4.30); METAMYELOCYTES 2 %; MONOCYTES 3 %; NEUTROPHILS ABSOLUTE (CALC) 14.85 10/3/uL (2.02-8.40); SEGMENTED NEUTROPHIL (0) 90 %; TOTAL NUCLEATED CELLS 100
[2017-01-05 22:19] LABS: ANISOCYTOSIS 1+ (5-10/OIF) (0-5/OIF); MACROCYTES 1+ (5-10/OIF) (0-5/OIF); MICROCYTES 1+ (5-10/OIF) (0-5/OIF)
[2017-01-05 22:20] LABS: BASOPHILIC STIPPLING 1+ (2-5/OIF) (0-1/OIF)
[2017-01-05 22:21] LABS: PLATELET ESTIMATE SLT DEC (ADEQUATE)
[2017-01-06 05:16] LABS: BASOPHILS 0.5 %; BASOPHILS ABSOLUTE 0.06 10/3/uL (0.0-0.16); EOSINOPHILS 1.9 %; EOSINOPHILS ABSOLUTE 0.23 10/3/uL (0.0-0.53); HEMOGLOBIN 7.1 g/dL (13.6-17.8); IMMATURE GRANULOCYTES 2.2 %; IMMATURE GRANULOCYTES ABSOLUTE 0.27 10/3/uL (0.0-0.11); LYMPHOCYTES 5.7 %; LYMPHOCYTES ABSOLUTE 0.71 10/3/uL (0.67-4.30); MEAN CORPUS HGB CONC 33.6 g/dL (32.0-36.0); MEAN CORPUSCULAR HEMOGLOB 30.3 pg (26.0-34.0); MEAN CORPUSCULAR VOLUME 90.2 fL (80-100); MEAN PLATELET VOLUME 10.8 fL (9.2-13.0); MONOCYTES 10.6 %; MONOCYTES ABSOLUTE 1.32 10/3/uL (0.21-1.20); NEUTROPHILS 79.1 %; NEUTROPHILS ABSOLUTE 9.84 10/3/uL (2.02-8.40); PLATELET COUNT 118 10/3/uL (150-400); RBC DISTRIBUTION WIDTH 17.2 % (12.0-16.0); RED CELL COUNT 2.34 10/6/uL (4.7-6.1); WHITE BLOOD CELLS 12.4 10/3/uL (4.5-10.5)
[2017-01-06 05:17] LABS: HEMATOCRIT 21.1 % (40.0-51.0); MANUAL DIFF NO %
[2017-01-06 05:31] LABS: BUN (BLOOD UREA NITROGEN) 32 MG/DL (6-23); CHLORIDE, SERUM 102 MMOL/L (96-112); CO2 (CARBON DIOXIDE) 28 MMOL/L (24-34); CREATININE 0.96 MG/DL (0.70-1.30); GFR AFRICAN AMERICAN 89 ML/MIN (>=60); GFR NON AFRICAN AMERICAN 77 ML/MIN (>=60); GLUCOSE, SERUM 109 MG/DL (60-99); PHOSPHORUS, SERUM 2.9 MG/DL (2.5-4.5); POTASSIUM, SERUM 3.7 MMOL/L (3.5-5.3); SODIUM, SERUM 140 MMOL/L (135-148)
[2017-01-06 09:50] LABS: BASOPHILS 0.6 %; BASOPHILS ABSOLUTE 0.07 10/3/uL (0.0-0.16); EOSINOPHILS 2.1 %; EOSINOPHILS ABSOLUTE 0.25 10/3/uL (0.0-0.53); IMMATURE GRANULOCYTES 2.3 %; IMMATURE GRANULOCYTES ABSOLUTE 0.27 10/3/uL (0.0-0.11); LYMPHOCYTES 5.8 %; LYMPHOCYTES ABSOLUTE 0.68 10/3/uL (0.67-4.30); MEAN CORPUS HGB CONC 33.8 g/dL (32.0-36.0); MEAN CORPUSCULAR HEMOGLOB 30.6 pg (26.0-34.0); MEAN CORPUSCULAR VOLUME 90.5 fL (80-100); MEAN PLATELET VOLUME 11.3 fL (9.2-13.0); MONOCYTES 10.1 %; MONOCYTES ABSOLUTE 1.18 10/3/uL (0.21-1.20); NEUTROPHILS 79.1 %; NEUTROPHILS ABSOLUTE 9.23 10/3/uL (2.02-8.40); PLATELET COUNT 111 10/3/uL (150-400); RBC DISTRIBUTION WIDTH 17.2 % (12.0-16.0); RED CELL COUNT 2.22 10/6/uL (4.7-6.1); WHITE BLOOD CELLS 11.7 10/3/uL (4.5-10.5)
[2017-01-06 09:51] LABS: HEMATOCRIT 20.1 % (40.0-51.0); HEMOGLOBIN 6.8 g/dL (13.6-17.8)
[2017-01-06 09:54] LABS: MANUAL DIFF NO %
[2017-01-06 10:03] LABS: BUN (BLOOD UREA NITROGEN) 34 MG/DL (6-23); CALCIUM, SERUM 8.2 MG/DL (8.5-10.4); CHLORIDE, SERUM 99 MMOL/L (96-112); CO2 (CARBON DIOXIDE) 30 MMOL/L (24-34); GFR AFRICAN AMERICAN 85 ML/MIN (>=60); GFR NON AFRICAN AMERICAN 73 ML/MIN (>=60); GLUCOSE, SERUM 105 MG/DL (60-99); POTASSIUM, SERUM 3.9 MMOL/L (3.5-5.3); SODIUM, SERUM 139 MMOL/L (135-148)
[2017-01-06 12:20] LABS: ALLENS TEST Pos; BE (BASE EXCESS) 3.7 MEQ/L (0 +/- 2.5); CARBOXYHEMOGLOBIN 2.2 % (0-3); HCO3 (ACTUAL BICARBONATE) 27.8 MEQ/L (23-27); HEMOBLOGIN CONTENT 7.5 G/DL (14-18); INSTRUMENT SERIAL # 8083; METHEMOGLOBIN 0.6 % (0-3); O2 CONTENT 7.9 VOL% (18-24); OPERATOR ID 14661; PCO2 (CO2 TENSION) 40 MMHG (35-45); PO2 (O2 TENSION) 43 MMHG (79-93); SAMPLE Arterial; pH 7.46 (7.37-7.43)
[2017-01-06 12:39] LABS: INSTRUMENT SERIAL # 35151; OPERATOR ID 14472; SAMPLE PLR
[2017-01-06 12:41] LABS: ALLENS TEST Pos; BE (BASE EXCESS) 5.6 MEQ/L (0 +/- 2.5); CARBOXYHEMOGLOBIN 2.1 % (0-3); HCO3 (ACTUAL BICARBONATE) 29.7 MEQ/L (23-27); HEMOBLOGIN CONTENT 7.4 G/DL (14-18); INSTRUMENT SERIAL # 8083; METHEMOGLOBIN 0.4 % (0-3); O2 CONTENT 9.5 VOL% (18-24); OPERATOR ID 17370; PCO2 (CO2 TENSION) 42 MMHG (35-45); PO2 (O2 TENSION) 63 MMHG (79-93); SAMPLE Arterial; pH 7.47 (7.37-7.43)
[2017-01-06 15:51] LABS: BASOPHILS 0.5 %; BASOPHILS ABSOLUTE 0.06 10/3/uL (0.0-0.16); EOSINOPHILS 2.1 %; EOSINOPHILS ABSOLUTE 0.25 10/3/uL (0.0-0.53); HEMOGLOBIN 7.6 g/dL (13.6-17.8); IMMATURE GRANULOCYTES 2.2 %; IMMATURE GRANULOCYTES ABSOLUTE 0.27 10/3/uL (0.0-0.11); LYMPHOCYTES 8.1 %; LYMPHOCYTES ABSOLUTE 0.98 10/3/uL (0.67-4.30); MEAN CORPUS HGB CONC 34.2 g/dL (32.0-36.0); MEAN CORPUSCULAR HEMOGLOB 30.9 pg (26.0-34.0); MEAN CORPUSCULAR VOLUME 90.2 fL (80-100); MEAN PLATELET VOLUME 10.9 fL (9.2-13.0); MONOCYTES ABSOLUTE 0.96 10/3/uL (0.21-1.20); NEUTROPHILS 79.1 %; NEUTROPHILS ABSOLUTE 9.55 10/3/uL (2.02-8.40); PLATELET COUNT 115 10/3/uL (150-400); RBC DISTRIBUTION WIDTH 16.5 % (12.0-16.0); RED CELL COUNT 2.46 10/6/uL (4.7-6.1); WHITE BLOOD CELLS 12.1 10/3/uL (4.5-10.5)
[2017-01-06 15:53] LABS: HEMATOCRIT 22.2 % (40.0-51.0); MANUAL DIFF NO %
[2017-01-06 16:04] LABS: BUN (BLOOD UREA NITROGEN) 32 MG/DL (6-23); CALCIUM, SERUM 8.2 MG/DL (8.5-10.4); CHLORIDE, SERUM 98 MMOL/L (96-112); CO2 (CARBON DIOXIDE) 28 MMOL/L (24-34); GFR AFRICAN AMERICAN 85 ML/MIN (>=60); GFR NON AFRICAN AMERICAN 73 ML/MIN (>=60); GLUCOSE, SERUM 109 MG/DL (60-99); PHOSPHORUS, SERUM 3.3 MG/DL (2.5-4.5); POTASSIUM, SERUM 4.2 MMOL/L (3.5-5.3); SODIUM, SERUM 138 MMOL/L (135-148)
[2017-01-06 22:16] LABS: BASOPHILS 0.4 %; BASOPHILS ABSOLUTE 0.05 10/3/uL (0.0-0.16); EOSINOPHILS 2.5 %; EOSINOPHILS ABSOLUTE 0.31 10/3/uL (0.0-0.53); HEMATOCRIT 24.3 % (40.0-51.0); HEMOGLOBIN 8.4 g/dL (13.6-17.8); IMMATURE GRANULOCYTES 2.1 %; IMMATURE GRANULOCYTES ABSOLUTE 0.27 10/3/uL (0.0-0.11); LYMPHOCYTES 4.5 %; LYMPHOCYTES ABSOLUTE 0.57 10/3/uL (0.67-4.30); MANUAL DIFF NO %; MEAN CORPUS HGB CONC 34.6 g/dL (32.0-36.0); MEAN CORPUSCULAR HEMOGLOB 31.1 pg (26.0-34.0); MEAN PLATELET VOLUME 10.7 fL (9.2-13.0); MONOCYTES 11.5 %; MONOCYTES ABSOLUTE 1.45 10/3/uL (0.21-1.20); NEUTROPHILS ABSOLUTE 9.93 10/3/uL (2.02-8.40); PLATELET COUNT 121 10/3/uL (150-400); RBC DISTRIBUTION WIDTH 16.2 % (12.0-16.0); WHITE BLOOD CELLS 12.6 10/3/uL (4.5-10.5)
[2017-01-06 22:29] LABS: BUN (BLOOD UREA NITROGEN) 32 MG/DL (6-23); CALCIUM, SERUM 8.7 MG/DL (8.5-10.4); CHLORIDE, SERUM 98 MMOL/L (96-112); CO2 (CARBON DIOXIDE) 29 MMOL/L (24-34); CREATININE 1.01 MG/DL (0.70-1.30); GFR AFRICAN AMERICAN 84 ML/MIN (>=60); GFR NON AFRICAN AMERICAN 72 ML/MIN (>=60); GLUCOSE, SERUM 91 MG/DL (60-99); POTASSIUM, SERUM 4.2 MMOL/L (3.5-5.3); SODIUM, SERUM 137 MMOL/L (135-148)
[2017-01-07 04:40] LABS: BASOPHILS 0.5 %; BASOPHILS ABSOLUTE 0.06 10/3/uL (0.0-0.16); EOSINOPHILS ABSOLUTE 0.34 10/3/uL (0.0-0.53); HEMATOCRIT 25.3 % (40.0-51.0); HEMOGLOBIN 8.5 g/dL (13.6-17.8); IMMATURE GRANULOCYTES 1.7 %; IMMATURE GRANULOCYTES ABSOLUTE 0.19 10/3/uL (0.0-0.11); LYMPHOCYTES 4.8 %; LYMPHOCYTES ABSOLUTE 0.55 10/3/uL (0.67-4.30); MEAN CORPUS HGB CONC 33.6 g/dL (32.0-36.0); MEAN CORPUSCULAR HEMOGLOB 30.5 pg (26.0-34.0); MEAN CORPUSCULAR VOLUME 90.7 fL (80-100); MEAN PLATELET VOLUME 10.9 fL (9.2-13.0); MONOCYTES 10.7 %; MONOCYTES ABSOLUTE 1.23 10/3/uL (0.21-1.20); NEUTROPHILS 79.3 %; NEUTROPHILS ABSOLUTE 9.14 10/3/uL (2.02-8.40); PLATELET COUNT 122 10/3/uL (150-400); RBC DISTRIBUTION WIDTH 16.2 % (12.0-16.0); RED CELL COUNT 2.79 10/6/uL (4.7-6.1); WHITE BLOOD CELLS 11.5 10/3/uL (4.5-10.5)
[2017-01-07 04:45] LABS: ALBUMIN 3.3 G/DL (3.5-5.0); BUN (BLOOD UREA NITROGEN) 31 MG/DL (6-23); CALCIUM, SERUM 8.9 MG/DL (8.5-10.4); CHLORIDE, SERUM 98 MMOL/L (96-112); CO2 (CARBON DIOXIDE) 30 MMOL/L (24-34); CREATININE 1.09 MG/DL (0.70-1.30); GFR AFRICAN AMERICAN 77 ML/MIN (>=60); GFR NON AFRICAN AMERICAN 66 ML/MIN (>=60); GLUCOSE, SERUM 99 MG/DL (60-99); PHOSPHORUS, SERUM 3.4 MG/DL (2.5-4.5); POTASSIUM, SERUM 4.1 MMOL/L (3.5-5.3); SODIUM, SERUM 138 MMOL/L (135-148)
[2017-01-07 04:48] LABS: BE (BASE EXCESS) 3.5 MEQ/L (0 +/- 2.5); HCO3 (ACTUAL BICARBONATE) 27.6 MEQ/L (23-27); HEMOBLOGIN CONTENT 9.8 G/DL (14-18); INSTRUMENT SERIAL # 8083; METHEMOGLOBIN 0.1 % (0-3); O2 CONTENT 12.6 VOL% (18-24); PCO2 (CO2 TENSION) 40 MMHG (35-45); PO2 (O2 TENSION) 64 MMHG (79-93); SAMPLE Arterial; pH 7.46 (7.37-7.43)
[2017-01-07 04:49] LABS: ALLENS TEST Pos; DEVICE NC
[2017-01-07 04:49] LABS: MANUAL DIFF NO %
[2017-01-07 05:08] LABS: PROCALCITONIN 0.57 ng/mL (<0.5)
[2017-01-07 10:24] LABS: BASOPHILS 0.3 %; BASOPHILS ABSOLUTE 0.03 10/3/uL (0.0-0.16); EOSINOPHILS 2.8 %; EOSINOPHILS ABSOLUTE 0.33 10/3/uL (0.0-0.53); HEMATOCRIT 24.6 % (40.0-51.0); HEMOGLOBIN 8.4 g/dL (13.6-17.8); IMMATURE GRANULOCYTES 1.6 %; IMMATURE GRANULOCYTES ABSOLUTE 0.19 10/3/uL (0.0-0.11); LYMPHOCYTES 4.4 %; LYMPHOCYTES ABSOLUTE 0.52 10/3/uL (0.67-4.30); MEAN CORPUS HGB CONC 34.1 g/dL (32.0-36.0); MEAN CORPUSCULAR HEMOGLOB 30.8 pg (26.0-34.0); MEAN CORPUSCULAR VOLUME 90.1 fL (80-100); MEAN PLATELET VOLUME 10.3 fL (9.2-13.0); MONOCYTES 10.5 %; MONOCYTES ABSOLUTE 1.25 10/3/uL (0.21-1.20); NEUTROPHILS 80.4 %; NEUTROPHILS ABSOLUTE 9.61 10/3/uL (2.02-8.40); PLATELET COUNT 122 10/3/uL (150-400); RBC DISTRIBUTION WIDTH 16.6 % (12.0-16.0); RED CELL COUNT 2.73 10/6/uL (4.7-6.1); WHITE BLOOD CELLS 11.9 10/3/uL (4.5-10.5)
[2017-01-07 10:25] LABS: MANUAL DIFF NO %
[2017-01-07 10:35] LABS: BUN (BLOOD UREA NITROGEN) 32 MG/DL (6-23); CALCIUM, SERUM 8.9 MG/DL (8.5-10.4); CHLORIDE, SERUM 97 MMOL/L (96-112); CO2 (CARBON DIOXIDE) 31 MMOL/L (24-34); CREATININE 1.04 MG/DL (0.70-1.30); GFR AFRICAN AMERICAN 81 ML/MIN (>=60); GFR NON AFRICAN AMERICAN 70 ML/MIN (>=60); GLUCOSE, SERUM 100 MG/DL (60-99); POTASSIUM, SERUM 4.1 MMOL/L (3.5-5.3); SODIUM, SERUM 137 MMOL/L (135-148)
[2017-01-07 17:38] LABS: BUN (BLOOD UREA NITROGEN) 31 MG/DL (6-23); CALCIUM, SERUM 8.4 MG/DL (8.5-10.4); CHLORIDE, SERUM 96 MMOL/L (96-112); CO2 (CARBON DIOXIDE) 29 MMOL/L (24-34); CREATININE 1.09 MG/DL (0.70-1.30); GFR AFRICAN AMERICAN 77 ML/MIN (>=60); GFR NON AFRICAN AMERICAN 66 ML/MIN (>=60); GLUCOSE, SERUM 101 MG/DL (60-99); PHOSPHORUS, SERUM 3.5 MG/DL (2.5-4.5); POTASSIUM, SERUM 4.1 MMOL/L (3.5-5.3); SODIUM, SERUM 136 MMOL/L (135-148)
[2017-01-07 17:43] LABS: BASOPHILS 0.3 %; BASOPHILS ABSOLUTE 0.04 10/3/uL (0.0-0.16); EOSINOPHILS 2.7 %; EOSINOPHILS ABSOLUTE 0.34 10/3/uL (0.0-0.53); HEMATOCRIT 24.8 % (40.0-51.0); HEMOGLOBIN 8.4 g/dL (13.6-17.8); IMMATURE GRANULOCYTES 1.5 %; IMMATURE GRANULOCYTES ABSOLUTE 0.19 10/3/uL (0.0-0.11); LYMPHOCYTES 4.4 %; LYMPHOCYTES ABSOLUTE 0.54 10/3/uL (0.67-4.30); MEAN CORPUS HGB CONC 33.9 g/dL (32.0-36.0); MEAN CORPUSCULAR VOLUME 91.5 fL (80-100); MEAN PLATELET VOLUME 10.6 fL (9.2-13.0); MONOCYTES 8.8 %; MONOCYTES ABSOLUTE 1.09 10/3/uL (0.21-1.20); NEUTROPHILS 82.3 %; NEUTROPHILS ABSOLUTE 10.17 10/3/uL (2.02-8.40); PLATELET COUNT 117 10/3/uL (150-400); RBC DISTRIBUTION WIDTH 16.5 % (12.0-16.0); RED CELL COUNT 2.71 10/6/uL (4.7-6.1); WHITE BLOOD CELLS 12.4 10/3/uL (4.5-10.5)
[2017-01-07 17:54] LABS: MANUAL DIFF NO %
[2017-01-07 22:38] LABS: BASOPHILS 0.3 %; BASOPHILS ABSOLUTE 0.04 10/3/uL (0.0-0.16); EOSINOPHILS 2.7 %; EOSINOPHILS ABSOLUTE 0.36 10/3/uL (0.0-0.53); HEMATOCRIT 25.1 % (40.0-51.0); HEMOGLOBIN 8.3 g/dL (13.6-17.8); IMMATURE GRANULOCYTES 1.5 %; LYMPHOCYTES 9.4 %; LYMPHOCYTES ABSOLUTE 1.25 10/3/uL (0.67-4.30); MEAN CORPUS HGB CONC 33.1 g/dL (32.0-36.0); MEAN CORPUSCULAR HEMOGLOB 30.2 pg (26.0-34.0); MEAN CORPUSCULAR VOLUME 91.3 fL (80-100); MEAN PLATELET VOLUME 11.2 fL (9.2-13.0); MONOCYTES ABSOLUTE 0.66 10/3/uL (0.21-1.20); NEUTROPHILS 81.1 %; NEUTROPHILS ABSOLUTE 10.77 10/3/uL (2.02-8.40); PLATELET COUNT 93 10/3/uL (150-400); RBC DISTRIBUTION WIDTH 16.4 % (12.0-16.0); RED CELL COUNT 2.75 10/6/uL (4.7-6.1); WHITE BLOOD CELLS 13.3 10/3/uL (4.5-10.5)
[2017-01-07 22:39] LABS: MANUAL DIFF NO %
[2017-01-07 22:51] LABS: BUN (BLOOD UREA NITROGEN) 30 MG/DL (6-23); CHLORIDE, SERUM 96 MMOL/L (96-112); CO2 (CARBON DIOXIDE) 30 MMOL/L (24-34); CREATININE 1.05 MG/DL (0.70-1.30); GFR AFRICAN AMERICAN 80 ML/MIN (>=60); GFR NON AFRICAN AMERICAN 69 ML/MIN (>=60); GLUCOSE, SERUM 100 MG/DL (60-99); SODIUM, SERUM 134 MMOL/L (135-148)
[2017-01-07 22:56] LABS: CALCIUM, SERUM 8.9 MG/DL (8.5-10.4)
[2017-01-08 04:15] LABS: BASOPHILS 0.3 %; BASOPHILS ABSOLUTE 0.04 10/3/uL (0.0-0.16); EOSINOPHILS 2.8 %; EOSINOPHILS ABSOLUTE 0.39 10/3/uL (0.0-0.53); HEMATOCRIT 25.1 % (40.0-51.0); HEMOGLOBIN 8.4 g/dL (13.6-17.8); IMMATURE GRANULOCYTES 1.4 %; MEAN CORPUS HGB CONC 33.5 g/dL (32.0-36.0); MEAN CORPUSCULAR HEMOGLOB 30.8 pg (26.0-34.0); MEAN CORPUSCULAR VOLUME 91.9 fL (80-100); MEAN PLATELET VOLUME 11.8 fL (9.2-13.0); MONOCYTES 8.8 %; MONOCYTES ABSOLUTE 1.23 10/3/uL (0.21-1.20); NEUTROPHILS 81.7 %; NEUTROPHILS ABSOLUTE 11.37 10/3/uL (2.02-8.40); PLATELET COUNT 101 10/3/uL (150-400); RBC DISTRIBUTION WIDTH 16.3 % (12.0-16.0); RED CELL COUNT 2.73 10/6/uL (4.7-6.1); WHITE BLOOD CELLS 13.9 10/3/uL (4.5-10.5)
[2017-01-08 04:17] LABS: MANUAL DIFF NO %
[2017-01-08 04:29] LABS: BUN (BLOOD UREA NITROGEN) 31 MG/DL (6-23); CALCIUM, SERUM 8.9 MG/DL (8.5-10.4); CHLORIDE, SERUM 95 MMOL/L (96-112); CO2 (CARBON DIOXIDE) 29 MMOL/L (24-34); CREATININE 1.12 MG/DL (0.70-1.30); GFR AFRICAN AMERICAN 74 ML/MIN (>=60); GFR NON AFRICAN AMERICAN 64 ML/MIN (>=60); GLUCOSE, SERUM 120 MG/DL (60-99); PHOSPHORUS, SERUM 2.7 MG/DL (2.5-4.5); POTASSIUM, SERUM 3.9 MMOL/L (3.5-5.3); SODIUM, SERUM 134 MMOL/L (135-148)
[2017-01-08 05:39] LABS: INSTRUMENT SERIAL # 8083
[2017-01-08 05:40] LABS: ALLENS TEST Pos; BE (BASE EXCESS) 3.8 MEQ/L (0 +/- 2.5); CARBOXYHEMOGLOBIN 1.3 % (0-3); DEVICE NC; HCO3 (ACTUAL BICARBONATE) 27.9 MEQ/L (23-27); METHEMOGLOBIN 0.2 % (0-3); O2 CONTENT 11.9 VOL% (18-24); PCO2 (CO2 TENSION) 40 MMHG (35-45); PO2 (O2 TENSION) 70 MMHG (79-93); SAMPLE Arterial; pH 7.46 (7.37-7.43)
[2017-01-08 10:47] LABS: BASOPHILS 0.3 %; BASOPHILS ABSOLUTE 0.04 10/3/uL (0.0-0.16); EOSINOPHILS ABSOLUTE 0.39 10/3/uL (0.0-0.53); HEMOGLOBIN 7.7 g/dL (13.6-17.8); IMMATURE GRANULOCYTES 1.6 %; IMMATURE GRANULOCYTES ABSOLUTE 0.21 10/3/uL (0.0-0.11); LYMPHOCYTES 4.6 %; MEAN CORPUS HGB CONC 33.5 g/dL (32.0-36.0); MEAN CORPUSCULAR HEMOGLOB 30.6 pg (26.0-34.0); MEAN CORPUSCULAR VOLUME 91.3 fL (80-100); MEAN PLATELET VOLUME 11.1 fL (9.2-13.0); MONOCYTES 9.8 %; MONOCYTES ABSOLUTE 1.28 10/3/uL (0.21-1.20); NEUTROPHILS 80.7 %; PLATELET COUNT 119 10/3/uL (150-400); RBC DISTRIBUTION WIDTH 16.4 % (12.0-16.0); RED CELL COUNT 2.52 10/6/uL (4.7-6.1)
[2017-01-08 10:48] LABS: MANUAL DIFF NO %
[2017-01-08 10:58] LABS: BUN (BLOOD UREA NITROGEN) 34 MG/DL (6-23); CALCIUM, SERUM 8.8 MG/DL (8.5-10.4); CHLORIDE, SERUM 96 MMOL/L (96-112); CO2 (CARBON DIOXIDE) 30 MMOL/L (24-34); CREATININE 1.09 MG/DL (0.70-1.30); GFR AFRICAN AMERICAN 77 ML/MIN (>=60); GFR NON AFRICAN AMERICAN 66 ML/MIN (>=60); GLUCOSE, SERUM 110 MG/DL (60-99); POTASSIUM, SERUM 4.1 MMOL/L (3.5-5.3); SODIUM, SERUM 137 MMOL/L (135-148)
[2017-01-09 04:22] LABS: BE (BASE EXCESS) 3.2 MEQ/L (0 +/- 2.5); CARBOXYHEMOGLOBIN 1.8 % (0-3); HCO3 (ACTUAL BICARBONATE) 27.2 MEQ/L (23-27); INSTRUMENT SERIAL # 8083; METHEMOGLOBIN 0.4 % (0-3); PCO2 (CO2 TENSION) 38 MMHG (35-45); PO2 (O2 TENSION) 76 MMHG (79-93); pH 7.47 (7.37-7.43)
[2017-01-09 04:23] LABS: ALLENS TEST Pos; DEVICE NC; O2 CONTENT 9.3 VOL% (18-24); OPERATOR ID 13861; SAMPLE Arterial
[2017-01-09 04:51] LABS: BASOPHILS 0.3 %; BASOPHILS ABSOLUTE 0.04 10/3/uL (0.0-0.16); EOSINOPHILS 4.4 %; EOSINOPHILS ABSOLUTE 0.56 10/3/uL (0.0-0.53); HEMATOCRIT 24.5 % (40.0-51.0); HEMOGLOBIN 8.3 g/dL (13.6-17.8); IMMATURE GRANULOCYTES 1.6 %; LYMPHOCYTES 9.9 %; LYMPHOCYTES ABSOLUTE 1.25 10/3/uL (0.67-4.30); MEAN CORPUS HGB CONC 33.9 g/dL (32.0-36.0); MEAN CORPUSCULAR HEMOGLOB 30.9 pg (26.0-34.0); MEAN CORPUSCULAR VOLUME 91.1 fL (80-100); MEAN PLATELET VOLUME 11.4 fL (9.2-13.0); MONOCYTES 6.5 %; MONOCYTES ABSOLUTE 0.83 10/3/uL (0.21-1.20); NEUTROPHILS 77.3 %; NEUTROPHILS ABSOLUTE 9.81 10/3/uL (2.02-8.40); PLATELET COUNT 131 10/3/uL (150-400); RBC DISTRIBUTION WIDTH 16.3 % (12.0-16.0); RED CELL COUNT 2.69 10/6/uL (4.7-6.1); WHITE BLOOD CELLS 12.7 10/3/uL (4.5-10.5)
[2017-01-09 04:54] LABS: MANUAL DIFF NO %
[2017-01-09 05:05] LABS: CALCIUM, SERUM 9.2 MG/DL (8.5-10.4); CHLORIDE, SERUM 95 MMOL/L (96-112); CO2 (CARBON DIOXIDE) 27 MMOL/L (24-34); GLUCOSE, SERUM 130 MG/DL (60-99); POTASSIUM, SERUM 4.1 MMOL/L (3.5-5.3); SODIUM, SERUM 132 MMOL/L (135-148)
[2017-01-09 05:07] LABS: BUN (BLOOD UREA NITROGEN) 58 MG/DL (6-23); CREATININE 2.12 MG/DL (0.70-1.30); GFR AFRICAN AMERICAN 34 ML/MIN (>=60); GFR NON AFRICAN AMERICAN 30 ML/MIN (>=60); PHOSPHORUS, SERUM 3.7 MG/DL (2.5-4.5)
[2017-01-10 07:18] LABS: BASOPHILS 0.2 %; BASOPHILS ABSOLUTE 0.03 10/3/uL (0.0-0.16); EOSINOPHILS 6.1 %; EOSINOPHILS ABSOLUTE 0.78 10/3/uL (0.0-0.53); HEMATOCRIT 24.8 % (40.0-51.0); HEMOGLOBIN 8.3 g/dL (13.6-17.8); IMMATURE GRANULOCYTES 1.4 %; IMMATURE GRANULOCYTES ABSOLUTE 0.18 10/3/uL (0.0-0.11); LYMPHOCYTES 8.4 %; LYMPHOCYTES ABSOLUTE 1.08 10/3/uL (0.67-4.30); MEAN CORPUS HGB CONC 33.5 g/dL (32.0-36.0); MEAN CORPUSCULAR HEMOGLOB 30.7 pg (26.0-34.0); MEAN CORPUSCULAR VOLUME 91.9 fL (80-100); MEAN PLATELET VOLUME 11.2 fL (9.2-13.0); MONOCYTES 7.6 %; MONOCYTES ABSOLUTE 0.98 10/3/uL (0.21-1.20); NEUTROPHILS 76.3 %; NEUTROPHILS ABSOLUTE 9.77 10/3/uL (2.02-8.40); RBC DISTRIBUTION WIDTH 16.1 % (12.0-16.0); WHITE BLOOD CELLS 12.8 10/3/uL (4.5-10.5)
[2017-01-10 07:19] LABS: MANUAL DIFF NO %; PLATELET COUNT 195 10/3/uL (150-400)
[2017-01-10 07:43] LABS: ALBUMIN 2.8 G/DL (3.5-5.0); ALKALINE PHOSPHATASE 76 U/L (45-117); BUN (BLOOD UREA NITROGEN) 89 MG/DL (6-23); CHLORIDE, SERUM 98 MMOL/L (96-112); CO2 (CARBON DIOXIDE) 27 MMOL/L (24-34); CREATININE 3.22 MG/DL (0.70-1.30); GFR AFRICAN AMERICAN 21 ML/MIN (>=60); GFR NON AFRICAN AMERICAN 18 ML/MIN (>=60); GLUCOSE, SERUM 132 MG/DL (60-99); POTASSIUM, SERUM 4.5 MMOL/L (3.5-5.3); SGOT(AST) 28 U/L (5-40); SGPT(ALT) 23 U/L (5-65); SODIUM, SERUM 136 MMOL/L (135-148)
[2017-01-10 07:44] LABS: CALCIUM, SERUM 8.9 MG/DL (8.5-10.4); DIRECT BILIRUBIN 0.4 MG/DL (0.0-0.4); INDIRECT BILIRUBIN(NOT ORDER) 0.4 MG/DL (0.1-0.9); PHOSPHORUS, SERUM 5.5 MG/DL (2.5-4.5); TOTAL BILIRUBIN 0.8 MG/DL (0-1.2); TOTAL PROTEIN 7.3 G/DL (6.0-8.5)
[2017-01-12 12:42] LABS: HEPATITIS B SURFACE ANTIGEN NON-REACTIVE (NON-REACT)
[2017-01-12 13:09] LABS: HEPATITIS C ANTIBODY NON-REACTIVE (NON-REACT)
[2017-01-12 13:10] LABS: HEPATITIS B CORE AB IGM NON-REACTIVE (NON-REAC)
[2017-01-12 13:11] LABS: HIV COMBO NON-REACTIVE (NON REAC)
[2017-01-12 13:12] LABS: HEP A ANTIBODY IGM NON-REACTIVE (NON-REACT)
== END 2017-01-11 14:39 | disposition hospice, inpatient (51) | DRG 659 ==
LOC: MIC 23:15
PROVIDERS: Internal Medicine; Internal Medicine Critical Care Medicine; Internal Medicine Nephrology; Internal Medicine Pulmonary Disease; Radiology Radiation Oncology; Urology
PROC: 5A1955Z Respiratory Ventilation, Greater than 96 Consecutive Hours (ICD-10-PCS; 2016-12-23)
PROC: 0TC78ZZ Extirpation of Matter from Left Ureter, Via Natural or Artificial Opening Endoscopic (ICD-10-PCS; 2016-12-23)
PROC: 0TC Urinary System, Extirpation (ICD-10-PCS; 2016-12-23)
PROC: 30233N1 Transfusion of Nonautologous Red Blood Cells into Peripheral Vein, Percutaneous Approach (ICD-10-PCS; 2016-12-23)
PROC: 0BH17EZ Insertion of Endotracheal Airway into Trachea, Via Natural or Artificial Opening (ICD-10-PCS; 2016-12-23)
PROC: 0TT10ZZ Resection of Left Kidney, Open Approach (ICD-10-PCS; principal; 2016-12-23 19:45)
PROC: 05HN33Z Insertion of Infusion Device into Left Internal Jugular Vein, Percutaneous Approach (ICD-10-PCS; 2016-12-24)
PROC: B544ZZA Ultrasonography of Left Jugular Veins, Guidance (ICD-10-PCS; 2016-12-24)
PROC: 5A1D00Z (ICD-10-PCS; 2016-12-24)
PROC: 05PY33Z Removal of Infusion Device from Upper Vein, Percutaneous Approach (ICD-10-PCS; 2016-12-29)
PROC: 05HN33Z Insertion of Infusion Device into Left Internal Jugular Vein, Percutaneous Approach (ICD-10-PCS; 2016-12-29)
PROC: B544ZZA Ultrasonography of Left Jugular Veins, Guidance (ICD-10-PCS; 2016-12-29)
PROC: 3E0436Z Introduction of Nutritional Substance into Central Vein, Percutaneous Approach (ICD-10-PCS; 2016-12-29)
PROC: 02HV33Z Insertion of Infusion Device into Superior Vena Cava, Percutaneous Approach (ICD-10-PCS; 2016-12-29)
PROC: B5181ZA Fluoroscopy of Superior Vena Cava using Low Osmolar Contrast, Guidance (ICD-10-PCS; 2016-12-29)
PROC: 0W9B3ZZ Drainage of Left Pleural Cavity, Percutaneous Approach (ICD-10-PCS; 2017-01-04)
PROC: 0W9B4ZX Drainage of Left Pleural Cavity, Percutaneous Endoscopic Approach, Diagnostic (ICD-10-PCS; 2017-01-04)
DX: S37.022A Major contusion of left kidney, initial encounter (principal); N17.0 Acute kidney failure with tubular necrosis; A41.51 Sepsis due to Escherichia coli [E. coli]; R65.21 Severe sepsis with septic shock; J96.01 Acute respiratory failure with hypoxia; N18.4 Chronic kidney disease, stage 4 (severe); J90 Pleural effusion, not elsewhere classified; I50.22 Chronic systolic (congestive) heart failure; I13.0 Hypertensive heart and chronic kidney disease with heart failure and stage 1 through stage 4 chronic kidney disease, or unspecified chronic kidney disease; N39.0 Urinary tract infection, site not specified; D69.6 Thrombocytopenia, unspecified; N10 Acute pyelonephritis; E87.2 Acidosis; D62 Acute posthemorrhagic anemia; K56.7 Ileus, unspecified; N20.1 Calculus of ureter; T85.618A Breakdown (mechanical) of other specified internal prosthetic devices, implants and grafts, initial encounter; E46 Unspecified protein-calorie malnutrition; Z51.5 Encounter for palliative care; Z66 Do not resuscitate; I48.2 Chronic atrial fibrillation; E86.9 Volume depletion, unspecified; F17.210 Nicotine dependence, cigarettes, uncomplicated; E03.9 Hypothyroidism, unspecified; J44.9 Chronic obstructive pulmonary disease, unspecified; I25.5 Ischemic cardiomyopathy; B96.89 Other specified bacterial agents as the cause of diseases classified elsewhere; I25.2 Old myocardial infarction; Z79.01 Long term (current) use of anticoagulants; F32.9 Major depressive disorder, single episode, unspecified; E83.42 Hypomagnesemia; E05.90 Thyrotoxicosis, unspecified without thyrotoxic crisis or storm; E78.00 Pure hypercholesterolemia, unspecified; K21.9 Gastro-esophageal reflux disease without esophagitis; D64.9 Anemia, unspecified; I25.10 Atherosclerotic heart disease of native coronary artery without angina pectoris; Z79.82 Long term (current) use of aspirin; Z79.899 Other long term (current) drug therapy; Z85.51 Personal history of malignant neoplasm of bladder
CPT/HCPCS: 31720; 36415; 36569; 36580; 36600; 71010; 74000; 74020; 74176; 80048; 80053; 80061; 80069; 80074; 80076; 80202; 81001; 82150; 82330; 82365; 82465; 82533; 82805; 82945; 82962; 83605; 83615; 83690; 83735; 83880; 83986; 84100; 84134; 84145; 84155; 84157; 84439; 84443; 84478; 84484; 85014; 85018; 85025; 85049; 85379; 85384; 85610; 85730; 86850; 86900; 86901; 86920; 87015; 87040; 87070; 87075; 87077; 87086; 87102; 87116; 87150; 87186; 87205; 87389; 87641; 87804; 88112; 88305; 88307; 89051; 93005; 93306; 93971; 94003; 94640; 94660; 96365; 96366; 99291; A9270-GY; C1751; C1752; C9113; G0257; J0282; J0330; J0610; J1160; J1940; J1956; J2185; J2248; J2250; J2370; J2405; J2543; J3010; J3360; J3370; J3430; P9016; P9017; P9045; P9047; P9059